=== PATIENT | female | born 1970 | race Caucasian/White ===

== ENCOUNTER 2020-03-29 22:24 | Outpatient (REF) | payer OTHER, SELFPAY ==
[2020-03-29 23:20] LABS: COVID-19 Test Negative (Negative); IDNOW Serial# 9DD0AD1C
== END 2020-03-29 22:25 | disposition home or self-care (01) ==
LOC: HO.EMPCOV 22:24
PROVIDERS: Visit Provider Internal Medicine
DX: Z20.828 Contact with and (suspected) exposure to other viral communicable diseases (principal)
CPT/HCPCS: 87635

== ENCOUNTER 2020-06-04 07:29 | Outpatient (REF) | payer OTHER, SELFPAY ==
[2020-06-04 07:45] LABS: COVID-19 Test Negative (Negative)
== END 2020-06-04 07:30 | disposition home or self-care (01) ==
LOC: HO.EMPCOV 07:29
PROVIDERS: Visit Provider Internal Medicine
DX: Z20.822 Contact with and (suspected) exposure to COVID-19 (principal)
CPT/HCPCS: 36415; 87635; C9803

== ENCOUNTER 2020-07-19 07:05 | Outpatient (REF) | payer OTHER, SELFPAY ==
[2020-07-19 08:04] LABS: Anion Gap 12 (12-20); Blood Urea Nitrogen 18 mg/dL (9-16); Calcium 9.3 mg/dL (8.4-10.2); Carbon Dioxide 33 mmol/L (22-29); Chloride 98 mmol/L (96-108); Estimated Glomerular Filt Rate > 60; Glucose Random 85 mg/dL (60-115); Sodium 139 mmol/L (135-145)
== END 2020-07-19 07:06 | disposition home or self-care (01) ==
LOC: HO.LAB 07:05
PROVIDERS: PCP Internal Medicine; Visit Provider Internal Medicine
DX: R51.9 Headache, unspecified (principal)
CPT/HCPCS: 36415; 80048

== ENCOUNTER 2020-07-22 11:10 | Outpatient (REF) | payer OTHER, SELFPAY ==
[2020-07-22 11:28] LABS: COVID-19 Test Negative (Negative); IDNOW Serial# 55D5AD1C
== END 2020-07-22 11:11 | disposition home or self-care (01) ==
LOC: HO.EMPCOV 11:10
PROVIDERS: Visit Provider Internal Medicine
DX: Z20.822 Contact with and (suspected) exposure to COVID-19 (principal)
CPT/HCPCS: 36415; 87635; C9803

== ENCOUNTER 2020-07-22 14:57 | Outpatient (REF) | payer OTHER, SELFPAY ==
--- NOTE | ~2020-07-22 | MR_ITS ---
EXAMINATION: MR BRAIN WITHOUT AND WITH CONTRAST CLINICAL INFORMATION: New onset severe headache. Assess for mass. COMPARISON: There are no prior studies available for comparison. TECHNIQUE: Multiplanar, multisequence MRI of the brain was obtained before and after the intravenous administration of 9 mL Gadavist. FINDINGS: No diffusion abnormalities are identified to suggest an acute or subacute infarct. No mass effect or midline shift is seen. The ventricles are normal in size. There are a few isolated foci of increased T2 and FLAIR signal in the white matter which are nonspecific. There is a prominent perivascular space in the left basal ganglia. No extra-axial fluid collections are seen. The brainstem and cerebellum are normal. On postcontrast imaging, there is no abnormal parenchymal or leptomeningeal enhancement. No pathologic magnetic susceptibility artifact is identified on the gradient refocused acquisition. The craniovertebral junction, marrow signal, and midline structures are normal. The major intracranial flow-voids at the level of the lumbee of [place] are preserved. The dural venous sinus flow-voids are maintained. The mastoid air cells and paranasal sinuses are well-aerated. MR/MR head/brain wo/w con IMPRESSION: 1. There are no acute bleeds or infarcts. There are no masses or areas of abnormal enhancement. The paranasal sinuses and mastoid air cells are well-aerated.
== END 2020-07-22 14:58 | disposition home or self-care (01) ==
LOC: HO.MRI 14:57
PROVIDERS: Visit Provider Internal Medicine
DX: R51.9 Headache, unspecified (principal)
CPT/HCPCS: 70553; A9585

== ENCOUNTER 2020-07-23 08:55 | Outpatient (REF) | payer OTHER, SELFPAY ==
[2020-07-26 06:42] LABS: HPV mRNA E6/E7 rflx Not Detected (Not Detected)
== END 2020-07-23 08:56 | disposition home or self-care (01) ==
LOC: HO.LAB 08:55
PROVIDERS: Visit Provider Obstetrics & Gynecology
DX: Z01.419 Encounter for gynecological examination (general) (routine) without abnormal findings (principal); Z11.51 Encounter for screening for human papillomavirus (HPV)
CPT/HCPCS: 36415; 87624; 88142

== ENCOUNTER 2020-09-24 15:38 | Outpatient (REF) | payer OTHER, SELFPAY ==
--- NOTE | ~2020-09-24 | MM_ITS ---
EXAMINATION: MM SCREENING DIGITAL BREAST TOMOSYNTHESIS, BILATERAL CLINICAL INFORMATION: Screening. Asymptomatic. The lifetime risk of breast cancer based on the Tyrer-Cuzick Model is 21%. Additional annual screening with breast MRI may be of benefit in women with a Score of 20% or greater. COMPARISON: Mammography: 02/08/2018 and studies dating back to 08/15/2014. TECHNIQUE: Digital breast tomosynthesis is performed in both the craniocaudal and mediolateral oblique views along with computer-aided detection (CAD). Synthesized 2D images are generated from the tomosynthesis. Additional right exaggerated craniocaudal view performed. FINDINGS: The breasts are heterogeneously dense, which may obscure small masses (ACR BI-RADS breast composition Category c). There is a stable appearance of the right breast with no new abnormal dominant mass or suspicious grouping of microcalcifications. Within the lateral aspect of the left breast there is question irregular marginated density with calcifications for which further evaluation with spot magnification view is recommended. The density lies approximately 8 cm from the nipple. I do not definitely see a correlating density on mediolateral oblique projection, however, by tomographic imaging on craniocaudal view, this region would correspond to a location superiorly. MM/MM tomosynthesis screening BI IMPRESSION: Left breast density for further evaluation with spot magnification views. ASSESSMENT: BI-RADS 0: Incomplete - Need Additional Imaging Evaluation RECOMMENDATION: 1. Additional views of the left breast. 2. Targeted ultrasound if warranted after review of the additional views. 3. Radiology department staff will contact the patient for additional imaging. This patient's information was entered into a reminder system with a target due date for their next mammogram.
== END 2020-09-24 15:39 | disposition home or self-care (01) ==
LOC: HO.MAMMO 15:38
PROVIDERS: PCP Internal Medicine; Visit Provider Obstetrics & Gynecology
DX: Z12.31 Encounter for screening mammogram for malignant neoplasm of breast (principal)
CPT/HCPCS: 77063; 77067

== ENCOUNTER 2020-10-01 14:52 | Outpatient (REF) | payer OTHER, SELFPAY ==
--- NOTE | ~2020-10-01 | MM_ITS ---
EXAMINATION: MM DIAGNOSTIC DIGITAL BREAST TOMOSYNTHESIS, LEFT CLINICAL INFORMATION: Recall from screening for question of asymmetric density with calcifications upper outer left breast. TC score 21%. COMPARISON: Mammography: 09/24/2020; outside mammography 12/19/2017 ([place]), 10/29/2015 ([facility]). TECHNIQUE: Digital breast tomosynthesis is performed. 2D images are generated from the tomosynthesis. The following views are obtained: 3-D rolled CC x2, magnification left CC, magnification left ML. FINDINGS: The breasts are heterogeneously dense, which may obscure small masses (ACR BI-RADS breast composition Category c). The additional rolled digital breast tomosynthesis shows no persistent asymmetric density. There is no developing density or interval mass or architectural abnormality in the area of concern. There are a few tiny regional round calcifications upper outer left breast similar to outside exam. There are no increasing or suspicious calcifications. Results are discussed with the patient at time of visit. MM/MM tomosynthesis added views L IMPRESSION: Additional views show no persistent asymmetric density or abnormal calcifications. No significant changes from prior outside exam. ASSESSMENT: BI-RADS 2: Benign RECOMMENDATION: 1. Routine annual mammography screening. 2. The lifetime risk of breast cancer based on the Tyrer-Cuzick Model is 21%. Additional annual adjunct screening with breast MRI may be of benefit in women with a risk score of 20% or greater. This patient's information was entered into a reminder system with a target due date for their next mammogram.
== END 2020-10-01 14:53 | disposition home or self-care (01) ==
LOC: HO.MAMMO 14:52
PROVIDERS: Visit Provider Obstetrics & Gynecology
DX: R92.2 Inconclusive mammogram (principal); R92.1 Mammographic calcification found on diagnostic imaging of breast
CPT/HCPCS: 77061; 77065

== ENCOUNTER 2021-03-24 10:36 | Outpatient (REF) | payer OTHER, SELFPAY ==
[2021-03-24 11:40] LABS: Blood Urea Nitrogen 15 mg/dL (9-16); Estimated Glomerular Filt Rate > 60
== END 2021-03-24 10:37 | disposition home or self-care (01) ==
LOC: HO.LAB 10:36
PROVIDERS: PCP Internal Medicine; Visit Provider Obstetrics & Gynecology
DX: Z91.89 Other specified personal risk factors, not elsewhere classified (principal)
CPT/HCPCS: 36415; 82565; 84520

== ENCOUNTER 2021-03-25 16:49 | Outpatient (REF) | payer OTHER, SELFPAY ==
--- NOTE | ~2021-03-25 | MR_ITS ---
EXAMINATION: MR BREAST WITHOUT AND WITH CONTRAST, BILATERAL CLINICAL INFORMATION: High-risk screening. COMPARISON: No previous breast MRI. TECHNIQUE: Imaging was performed with a dedicated breast coil. Prior to the administration of contrast, bilateral axial T1 and bilateral axial T2 weighted sequences were obtained. After the uneventful administration of?10 mL of Gadavist, dynamic contrast-enhanced VIBRANT series through the breasts in the axial plane were performed. Subtracted images were performed and reviewed. A delayed sagittal sequence through both breasts was acquired. Additionally, CAD post-processing, including maximum intensity projections, 3-D reconstructions and kinetic analysis, were performed an independent workstation and reviewed by the interpreting radiologist is a portion of this exam. FINDINGS: The patient's heterogeneously dense fibroglandular tissue demonstrates moderate background enhancement. LEFT BREAST: No definite suspicious masslike or non-masslike enhancement. No abnormal skin thickening or nipple retraction. No abnormal architectural distortion. Review of the T2 weighted images demonstrates mild fibrocystic changes without dilated ducts. Review of kinetic images reveals no additional findings. RIGHT BREAST: No definite suspicious masslike or non-masslike enhancement. No abnormal skin thickening or nipple retraction. No abnormal architectural distortion. Review of the T2 weighted images demonstrates mild fibrocystic changes without dilated ducts. Review of kinetic images reveals no additional findings. There is no suspicious internal mammary chain or axillary adenopathy. Limited views of the chest and abdomen are unremarkable. MR/MR breast BI wo/w con IMPRESSION: No MR specific evidence of malignancy. ASSESSMENT: LEFT BREAST: BI-RADS 1-Negative RIGHT BREAST: BI-RADS 1-Negative RECOMMENDATIONS: Clinical follow-up. Continued annual mammographic surveillance. Further breast MRI as risk factors dictate.
== END 2021-03-25 16:50 | disposition home or self-care (01) ==
LOC: HO.MRI 16:49
PROVIDERS: PCP Internal Medicine; Visit Provider Obstetrics & Gynecology
DX: Z91.89 Other specified personal risk factors, not elsewhere classified (principal)
CPT/HCPCS: 77049; A9585

== ENCOUNTER 2021-04-15 03:37 | Outpatient (REF) | payer OTHER, SELFPAY ==
[2021-04-15 04:06] LABS: COVID-19 Test Negative (Negative); IDNOW Serial# 9DD0AD1C
== END 2021-04-15 03:38 | disposition home or self-care (01) ==
LOC: HO.LAB 03:37
PROVIDERS: Visit Provider Internal Medicine
DX: Z20.822 Contact with and (suspected) exposure to COVID-19 (principal)
CPT/HCPCS: 36415; 87635

== ENCOUNTER 2021-04-28 06:46 | Outpatient (REF) | payer OTHER, SELFPAY ==
[2021-04-28 07:40] LABS: COVID-19 Test Negative (Negative)
== END 2021-04-28 06:47 | disposition home or self-care (01) ==
LOC: HO.LAB 06:46
PROVIDERS: PCP Internal Medicine; Visit Provider Internal Medicine
DX: Z20.822 Contact with and (suspected) exposure to COVID-19 (principal)
CPT/HCPCS: 36415; 87635

== ENCOUNTER 2021-07-28 09:03 | Outpatient (REF) | payer OTHER, SELFPAY ==
[2021-07-28 14:25] LABS: CT PCR NOT DETECTED (Not Detect.); NG PCR NOT DETECTED (Not Detect.)
[2021-07-29 08:42] LABS: BV Int Neg Control Negative (Negative); BV Int Pos Control Positive (Positive)
== END 2021-07-28 09:04 | disposition home or self-care (01) ==
LOC: HO.LAB 09:03
PROVIDERS: Visit Provider Advanced Practice Midwife
DX: Z01.411 Encounter for gynecological examination (general) (routine) with abnormal findings (principal); N92.0 Excessive and frequent menstruation with regular cycle; N93.9 Abnormal uterine and vaginal bleeding, unspecified
CPT/HCPCS: 87480; 87491; 87510; 87591; 87660

== ENCOUNTER 2021-08-28 10:56 | Outpatient (REF) | payer OTHER, SELFPAY ==
--- NOTE | ~2021-08-28 | US_ITS ---
EXAMINATION: US PELVIS CLINICAL INFORMATION: Excessive and frequent menstruation COMPARISON: CT abdomen pelvis 01/02/2019 TECHNIQUE: Ultrasound of the pelvis is performed using both transabdominal and transvaginal transducers along with Doppler. Transvaginal imaging is performed due to inadequate visualization transabdominally. FINDINGS: Uterus: The uterus is anteverted and measures 11.8 x 5.0 x 8.3 cm. The double wall endometrial thickness is 15 mm. There is a 1.6 x 1.2 x 1.4 cm echogenic lesion within the fundal endometrium with a feeding vessel suggestive of an endometrial polyp. A 3.0 x 3.5 x 3.3 cm transmural myoma in the right fundus with a less than 25% submucosal component. A 2.3 x 1.7 x 1.5 cm intramural myoma in the left body of the uterus The uterus is smooth in contour and has normal myometrial echogenicity. No visible fibroid. Adnexa: Both ovaries are visualized. There is normal color flow to the adnexa. There is no ovarian torsion. There is no pelvic ascites or fluid collection. Right ovary measures 4.4 x 3.2 x 4.0 cm. Right ovary is remarkable for a 2.2 cm dominant follicle and an involuting hemorrhagic corpus luteum. Left ovary measures 2.8 x 2.2 x 1.5 cm. Left ovary is unremarkable in appearance. US/US pelvic and transvaginal IMPRESSION: A 1.6 cm echogenic lesion within the fundal endometrium with a feeding vessel suggestive of an endometrial polyp. Recommend gynecologic referral. A 3.5 cm transmural myoma in the right fundus with a less than 25% submucosal component. An additional 2.3 cm intramural myoma is noted in the left body of the uterus.
[2021-08-28 13:14] LABS: Hematocrit 38.9 % (37.0-47.0); Hemoglobin 12.4 g/dl (12.0-16.0); Mean Corpuscular HGB Conc 31.9 g/dl (31.0-35.0); Mean Corpuscular Hemoglobin 27.4 pg (27.0-33.0); Mean Corpuscular Volume 86.1 fL (80.0-98.0); Mean Platelet Volume 9.4 fL (9.4-12.3); Platelet Count 374 X10*3/uL (160-400); Red Blood Count 4.52 X10*6/uL (4.20-5.50); Red Cell Distribution Width 13.6 % (11.0-16.0); White Blood Count 8.6 X10*3/uL (4.8-10.8)
[2021-08-28 14:03] LABS: Thyroid Stimulating Hormone 1.34 uIU/mL (0.32-4.0)
== END 2021-08-28 10:57 | disposition home or self-care (01) ==
LOC: HO.US 10:56
PROVIDERS: PCP Internal Medicine; Visit Provider Advanced Practice Midwife
DX: N92.0 Excessive and frequent menstruation with regular cycle (principal); N92.1 Excessive and frequent menstruation with irregular cycle
CPT/HCPCS: 36415; 76830; 76856; 84443; 85027

== ENCOUNTER → 2021-09-16 14:38 | Outpatient (BNVA) | payer OTHER, SELFPAY | PROVIDERS: PCP Internal Medicine; Visit Provider Advanced Practice Midwife | DX: Z13.89 Encounter for screening for other disorder (principal) ==

== ENCOUNTER 2021-10-02 15:01 | Outpatient (REF) | payer OTHER, SELFPAY ==
--- NOTE | ~2021-10-02 | MM_ITS ---
EXAMINATION: MM SCREENING DIGITAL BREAST TOMOSYNTHESIS, BILATERAL CLINICAL INFORMATION: Screening. Asymptomatic. The lifetime risk of breast cancer based on the Tyrer-Cuzick Model is 17%. COMPARISON: Mammography: 10/01/2020, 09/24/2020, outside mammography 12/19/2017 ([place]), 10/29/2015 ([facility]); MR bilateral breasts 03/25/2021. TECHNIQUE: Digital breast tomosynthesis is performed in both the craniocaudal and mediolateral oblique views along with computer-aided detection (CAD). Synthesized 2D images are generated from the tomosynthesis. FINDINGS: The breasts are heterogeneously dense, which may obscure small masses (ACR BI-RADS breast composition Category c). Parenchymal pattern is similar to prior studies and there is no developing density or interval mass or architectural abnormality. There are no interval abnormal calcifications. A few punctate calcifications mid upper outer left breast are stable. The axilla and skin contours are unremarkable. No significant changes. MM/MM tomosynthesis screening BI IMPRESSION: No mammographic evidence of malignancy. ASSESSMENT: BI-RADS 2: Benign RECOMMENDATION: Routine annual mammography screening. This patient's information was entered into a reminder system with a target due date for their next mammogram.
== END 2021-10-02 15:02 | disposition home or self-care (01) ==
LOC: HO.MAMMO 15:01
PROVIDERS: PCP Internal Medicine; Visit Provider Advanced Practice Midwife
DX: Z12.31 Encounter for screening mammogram for malignant neoplasm of breast (principal)
CPT/HCPCS: 77063; 77067

== ENCOUNTER 2021-11-27 06:50 | Day surgery (SDC) | payer OTHER, SELFPAY ==
[2021-11-20 14:46] VITALS: BMI 36.9
--- NOTE | 2021-11-25 12:37 | P.CONAN_ITS ---
Documented by User: Calli Deras NP 11/25/21 12:37 HPI - Anesthesia Eval Consult details Narrative: 51yo F for D&C Hysteroscopy,poss polypectomy/myomectomy PMFSH Active Problems Active Problems: All Active Problems (Updated 11/20/21 @ 14:19 by Katina Shrestha RN) Other specified personal risk factors, not elsewhere classified (Acute) Encounter for annual routine gynecological examination (Acute) Abnormal uterine bleeding (AUB) (Acute) Heavy menstrual bleeding (Acute) Endometrial polyp (Acute) Fibroid, uterine (Acute) Abnormal uterine bleeding (AUB) (Acute) Past Medical History Medical History Anxiety Cluster headaches GERD (gastroesophageal reflux disease) History of febrile seizure HTN (hypertension) IBS (irritable bowel syndrome) Migraines On beta jeremiah at home Family History Family History Maternal Aunt Breast cancer Paternal Aunt Breast cancer Surgical History Surgical History History of foot surgery History of tonsillectomy Hx of arthroscopy of right knee Hx of colonoscopy Social History Social History Are you a primary home health care worker to a significant other at home: No Do you presently have visiting nurse or other home services: No Alcohol intake: current Alcohol intake frequency: holidays/special occasions only Patient Tobacco Use Status: Never used Tobacco Use of substances other than those prescribed or required for medical reasons: No Are you DNR?: No Advance Directives: No Advance Directives Information Provided: Yes Advance Directives on File: No Recently lost weight without trying: No Eating poorly because of decreased appetite: No Nutrition Risks: No Nutritional Risk Current occupational status: employed Current occupation: Nurse's aid at [employer] Gender identity: Female Meds Allergies Allergy/AdvReac Type Severity Reaction Status Date / Time No Known Allergies Allergy Verified 11/17/21 13:12 Home Medications Medication Instructions Recorded Confirmed Last Taken Type citalopram 20 mg tablet 20 mg PO DAILY 07/23/20 11/20/21 11/27/21 History hydrochlorothiazide 25 mg tablet 25 mg PO DAILY 07/23/20 11/20/21 Unknown History metoprolol succinate 200 mg 200 mg PO DAILY 07/23/20 11/20/21 11/27/21 History tablet,extended release 24 hr omeprazole 20 mg capsule,delayed 20 mg PO DAILY 07/23/20 11/20/21 11/27/21 History release ondansetron 4 mg disintegrating 4 mg sublingual BID PRN Nausea 07/23/20 11/20/21 Unknown History tablet celecoxib 200 mg capsule 200 mg PO DAILY 07/28/21 11/20/21 Unknown History cholecalciferol (vitamin D3) 50 50 mcg PO DAILY 07/28/21 11/20/21 Unknown History mcg (2,000 unit) capsule amoxicillin 11/27/21 11/27/21 History Exam Exam Date and Time: November 25, 2021 1237 Height,Weight and Vital Signs: Height 5 ft 8 in Weight 110.223 kg Pertinent Lab Results Pertinent Lab Results: Laboratory Tests 08/28/21 12:39 WBC 8.6 Hgb 12.4 Hct 38.9 Plt Count 374 Assessment and Plan Assessment Anesthesia Assessment: Chart Reviewed Documented by User: Kp Beyer MD 11/27/21 07:46 PMFSH Past Medical History Medical History Anxiety Cluster headaches GERD (gastroesophageal reflux disease) History of febrile seizure HTN (hypertension) IBS (irritable bowel syndrome) Migraines On beta jeremiah at home Family History Family History Maternal Aunt Breast cancer Paternal Aunt Breast cancer Family history of problems with anesthesia: No Surgical History Surgical History History of foot surgery History of tonsillectomy Hx of arthroscopy of right knee Hx of colonoscopy History of Problems with Anesthesia: No Social History Social History Are you a primary home health care worker to a significant other at home: No Do you presently have visiting nurse or other home services: No Alcohol intake: current Alcohol intake frequency: holidays/special occasions only Patient Tobacco Use Status: Never used Tobacco Use of substances other than those prescribed or required for medical reasons: No Are you DNR?: No Advance Directives: No Advance Directives Information Provided: Yes Advance Directives on File: No Recently lost weight without trying: No Eating poorly because of decreased appetite: No Nutrition Risks: No Nutritional Risk Current occupational status: employed 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 Meds Allergies Allergy/AdvReac Type Severity Reaction Status Date / Time No Known Allergies Allergy Verified 11/17/21 13:12 Home Medications Medication Instructions Recorded Confirmed Last Taken Type citalopram 20 mg tablet 20 mg PO DAILY 07/23/20 11/20/21 11/27/21 History hydrochlorothiazide 25 mg tablet 25 mg PO DAILY 07/23/20 11/20/21 Unknown History metoprolol succinate 200 mg 200 mg PO DAILY 07/23/20 11/20/21 11/27/21 History tablet,extended release 24 hr omeprazole 20 mg capsule,delayed 20 mg PO DAILY 07/23/20 11/20/21 11/27/21 History release ondansetron 4 mg disintegrating 4 mg sublingual BID PRN Nausea 07/23/20 11/20/21 Unknown History tablet celecoxib 200 mg capsule 200 mg PO DAILY 07/28/21 11/20/21 Unknown History cholecalciferol (vitamin D3) 50 50 mcg PO DAILY 07/28/21 11/20/21 Unknown History mcg (2,000 unit) capsule amoxicillin 11/27/21 11/27/21 History Exam Airway Mallampati Class: II TM Dist: >3cm Neck ROM: Full Loose/Missing/Broken Teeth: No Heart: [id number] Lungs: cta b/l Assessment and Plan Assessment Anesthesia Assessment: Anesthesia Plan Discussed Final Anesthetic Review Family History of Problems with Anesthesia: No History of Problems with Anesthesia: No NPO: Yes ASA Class: II Final Preanesthetic Review: No Changes in Pt Med Stat, Meds/Allgs Chart Reviewed, Consent Obtained/Reviewed and Anes Risks/Benef Reviewed Patient Risk: Intermediate Procedure Risk: Intermediate Assessment/Block/Sedation in : Assess/Block/Sedation- Anesthetic Plan Anesthetic Plan: GA and Agree w/ Assess. and Plan Disposition: Standard PACU
[2021-11-27] VITALS (9 sets, daily range): BP systolic 137–153; BP diastolic 68–92; PULSE 80–103; RESP 16–20; TEMP 36.1–37.7; O2SAT 98–100
[2021-11-27 07:15] LABS: UPreg QC Valid YES; Urine Pregnancy NEGATIVE (NEGATIVE)
[2021-11-27] MEDS: Lactated Ringers 1,000 ML 100 ML IVCONT (07:25)
--- NOTE | 2021-11-27 07:38 | MHC.SHP ---
Pre-Procedural Eval Section A Date of Service: 11/27/21 The patient is an INPATIENT: No Changes since office visit: No Cold of Flu in the past 2 weeks, No New Medical Problems, No Changes in Medication and No Patient answered all questions The History & Physical has been completed within 30 days and I have reviewed it.: Yes Section B Chief Complaint: Polyp of corpus uteri Allergies: Allergies Allergy/AdvReac Type Severity Reaction Status Date / Time No Known Allergies Allergy Verified 11/17/21 13:12 Plan Diagnosis/Plan: Unchanged I have reviewed the history and physical and performed a pertinent physical examination on my patient. No changes have occurred unless specified.
--- NOTE | 2021-11-27 09:16 | P.BOP_ITS ---
Brief Operative Note Date of Service: 11/27/21 Pre-op diagnosis: AUB, Endometrial polyp by US Post-op diagnosis: same (R fundal 1.5 cm myoma & 0.5 cm polyp) Procedure: Hysteroscopy D&C, Polypectomy & Myomectomy Surgeon: Alexander Saldana MD Anesthesia: GLMA Was an [employer] Charcoal Burner used for this Procedure?: No Estimated blood loss (mL): 0 Pathology: other (Endometrial Scrapping. Polyp and myoma) Condition: stable Disposition: PACU
--- NOTE | 2021-11-27 09:18 | W.PM.OPN ---
Operative Note Operative Note Date of Service: 11/27/21 Narrative: Preop Diagnosis: AUB, Endometrial polyp by US Operation: Diagnostic Hysteroscopy, Dilataion & Curettage , Polypectomy& Myomectomy Post Op Diagnosis: Endometrial Polyp QBL: Minimal Anesthesia: MAC Surgeon: Alexander Saldana MD Agricultural Education Teacher: None Complication: None Pathology: Endometrial Scrapings, Endometrial polyp, myoma Procedure: The patient was put in the dorsal lithotomy position, scrubbed, and draped in the usual manner. A sterile speculum was inserted in the patient's vagina. The anterior lip of the cervix was grasped with a single tooth tenaculum. The cervix was dilated up to 5 mm, then the scope was inserted in the patient's uterus. Inspection revealedRight fundal 1.5 cm myoma and fundal 0.5 cm endometrial polyp. The Myosure Reach device was used; it was introduced through the operative channel and myomectomy and polypectomy done with no complications. At the end of the procedure, all instruments were taken out of the patient uterine and vaginal cavity. The single tooth tenaculum was removed and homeostasis was assured using pressure,. The patient tolerated the procedure well and was transferred to the PACU in a stable condition.
[2021-11-27] MEDS: Acetaminophen 325 MG TABLET 650 MG PO (09:43)
== END 2021-11-27 10:55 | disposition home or self-care (01) ==
PROVIDERS: PCP Internal Medicine; Visit Provider Obstetrics & Gynecology
PROC: 0UDB8ZZ Extraction of Endometrium, Via Natural or Artificial Opening Endoscopic (ICD-10-PCS; CPT 58558; principal; 2021-11-27 08:30)
DX: N84.0 Polyp of corpus uteri (principal); D25.9 Leiomyoma of uterus, unspecified; N93.9 Abnormal uterine and vaginal bleeding, unspecified; I10 Essential (primary) hypertension; G43.909 Migraine, unspecified, not intractable, without status migrainosus; Z79.899 Other long term (current) drug therapy
CPT/HCPCS: 58558; 81025; 88305; J1100; J2250; J2405; J3010

== ENCOUNTER → 2022-06-08 08:11 | Outpatient (BNVA) | payer OTHER, SELFPAY | PROVIDERS: PCP Internal Medicine; Visit Provider Obstetrics & Gynecology | DX: Z13.89 Encounter for screening for other disorder (principal) ==

== ENCOUNTER 2022-06-14 12:49 | Outpatient (REF) | payer OTHER, SELFPAY ==
--- NOTE | ~2022-06-14 | US_ITS ---
EXAMINATION: US PELVIS CLINICAL INFORMATION: Uterine leiomyoma. COMPARISON: Pelvic ultrasound 08/29/2019. TECHNIQUE: Ultrasound of the pelvis is performed using both transabdominal and transvaginal transducers along with Doppler. Transvaginal imaging is performed due to inadequate visualization transabdominally. FINDINGS: UTERUS: The uterus is anteverted and measures 9.2 x 5.0 x 6.4 cm for a volume of 154 mL.There are nabothian cysts seen in the cervix. The endometrium was not well seen secondary to fibroids. There is a large fundal fibroid on the right measuring 4.1 x 4.4 x 4.0 cm (previously 4.1 x 3.0 x 3.6 cm). There is a central uterine fibroid measuring 1.6 x 1.3 x 1.1 cm (previously 2.3 x 1.7 x 1.5 cm). A smaller left-sided uterine body fibroid is seen, not noted previously measuring 1.4 x 1.4 x 1.3 cm. ADNEXA: Both ovaries are visualized. There is normal color flow to the adnexa. There is no ovarian torsion. There is no pelvic ascites or fluid collection. Right ovary measures 2.8 x 1.4 x 1.7 cm for a volume of 3.5 mL. Left ovary measures 2.5 x 1.4 x 1.4 cm for a volume of 2.6 mL. US/US pelvic and transvaginal IMPRESSION: Large fundal fibroid has increased in size whereas the central uterine body fibroid appears decreased. There is a new 1.4 cm fibroid not seen previously.
== END 2022-06-14 12:50 | disposition home or self-care (01) ==
LOC: HO.US 12:49
PROVIDERS: PCP Internal Medicine; Visit Provider Obstetrics & Gynecology
DX: D25.9 Leiomyoma of uterus, unspecified (principal)
CPT/HCPCS: 76830; 76856

== ENCOUNTER 2022-07-15 08:52 | Outpatient (REF) | payer OTHER, SELFPAY ==
[2022-07-15 11:25] LABS: MANUAL DIFF FLAG NO
[2022-07-15 12:04] LABS: Basophils Absolute Auto 0.1 X10*3/uL (0.0-0.2); Basophils Percent Auto 1.1 % (0-2); Eosinophils Absolute Auto 0.2 X10*3/uL (0.0-0.4); Eosinophils Percent Auto 3.8 % (0-4); Hemoglobin 11.1 g/dl (12.0-16.0); Imm Gran Abs Auto 0.03 X10*3/uL (0.00-0.03); Imm Gran Pct Auto 0.5 % (0.0-0.4); Lymphocytes Absolute Auto 1.6 X10*3/uL (1.2-4.9); Lymphocytes Percent Auto 25.9 % (20-40); Mean Corpuscular Hemoglobin 24.2 pg (27.0-33.0); Mean Corpuscular Volume 80.6 fL (80.0-98.0); Mean Platelet Volume 9.5 fL (9.4-12.3); Monocytes Absolute Auto 0.7 X10*3/uL (0.1-1.2); Monocytes Percent Auto 11.1 % (2-11); Neutrophils Absolute Auto 3.5 x10*3/uL (2.0-8.3); Neutrophils Percent Auto 57.6 % (45-73); Platelet Count 473 X10*3/uL (160-400); Red Blood Count 4.59 X10*6/uL (4.20-5.50); Red Cell Distribution Width 15.9 % (11.0-16.0); White Blood Count 6.1 X10*3/uL (4.8-10.8)
[2022-07-15 12:19] LABS: Alanine Aminotransferase 24 U/L (0-31); Albumin Level 4.1 g/dL (3.5-5.0); Alkaline Phosphatase 73 U/L (39-117); Anion Gap 13 (12-20); Aspartate Amino Transferase 18 U/L (5-31); Bilirubin Total 0.6 mg/dL (0.0-1.0); Blood Urea Nitrogen 16 mg/dL (9-16); Calcium 9.4 mg/dL (8.4-10.2); Carbon Dioxide 32 mmol/L (22-29); Chloride 100 mmol/L (96-108); Cholesterol 219 mg/dL; Estimated Glomerular Filt Rate > 60; Glucose Random 87 mg/dL (60-115); HDL Cholesterol 66 mg/dL; LDL Cholesterol Calculated 127 mg/dl; Sodium 141 mmol/L (135-145); Total Protein 6.6 g/dL (6.5-8.0); Triglycerides 133 mg/dL
[2022-07-15 12:36] LABS: TSH reflex Free T4 1.09 uIU/mL (0.32-4.0)
== END 2022-07-15 08:53 | disposition home or self-care (01) ==
LOC: HO.HMGCLDS 08:52
PROVIDERS: PCP Internal Medicine; Visit Provider Internal Medicine
DX: I10 Essential (primary) hypertension (principal); R53.83 Other fatigue
CPT/HCPCS: 36415; 80053; 80061; 84443; 85025

== ENCOUNTER 2022-07-22 07:01 | Day surgery (SDC) | payer OTHER, SELFPAY ==
[2022-07-16 12:15] VITALS: BMI 34.8
--- NOTE | 2022-07-21 12:16 | P.CONAN_ITS ---
Documented by User: Calli Deras NP 07/21/22 12:19 HPI - Anesthesia Eval Consult details Narrative: 52yo F for Left Donovan Bunionectomy, Left 2nd toe Hammertoe Repair,tenotomy capsulotomy 2nd toe PCP cleared PMF[facility] Active Problems Active Problems: All Active Problems (Updated 02/11/22 @ 13:16 by Alexander Saldana MD) Other specified personal risk factors, not elsewhere classified (Acute) Encounter for annual routine gynecological examination (Acute) Abnormal uterine bleeding (AUB) (Acute) Heavy menstrual bleeding (Acute) Endometrial polyp (Acute) Fibroid, uterine (Acute) Abnormal uterine bleeding (AUB) (Acute) Past Medical History Medical History Anxiety Cluster headaches GERD (gastroesophageal reflux disease) History of febrile seizure HTN (hypertension) IBS (irritable bowel syndrome) Migraines On beta jeremiah at home Family History Family History Maternal Aunt Breast cancer Paternal Aunt Breast cancer Family history of problems with anesthesia: No Surgical History Surgical History History of foot surgery History of tonsillectomy Hx of arthroscopy of right knee Hx of colonoscopy Hx of dilation and curettage History of Problems with Anesthesia: No Social History Social History Are you a primary chiropractic care to a significant other at home: No Do you presently have visiting nurse or other home services: No Alcohol intake: current Alcohol intake frequency: does not drink Patient Tobacco Use Status: Never used Tobacco Are you DNR?: No Advance Directives: No Advance Directives Information Provided: Yes Recently lost weight without trying: No Nutrition Risks: No Nutritional Risk Current occupational status: employed Current occupation: Nurse's aid at [employer] Gender identity: Female Meds Allergies Allergy/AdvReac Type Severity Reaction Status Date / Time metronidazole [From Flagyl] Allergy Unknown Verified 07/21/22 10:54 Home Medications Medication Instructions Recorded Confirmed Last Taken Type citalopram 20 mg tablet 20 mg PO DAILY 07/23/20 07/16/22 07/21/22 History hydrochlorothiazide 25 mg tablet 25 mg PO DAILY 07/23/20 07/16/22 07/21/22 History metoprolol succinate 200 mg 200 mg PO DAILY 07/23/20 07/16/22 07/22/22 History tablet,extended release 24 hr omeprazole 20 mg capsule,delayed 20 mg PO DAILY 07/23/20 07/16/22 07/21/22 History release cholecalciferol (vitamin D3) 50 50 mcg PO DAILY 07/28/21 07/16/22 07/21/22 History mcg (2,000 unit) capsule Exam Exam Date and Time: July 21, 2022 1216 Height,Weight and Vital Signs: Height 5 ft 8 in Weight 104.014 kg Pertinent Lab Results Pertinent Lab Results: Laboratory Tests 07/15/22 07/15/22 09:11 09:11 WBC 6.1 Hgb 11.1 L Hct 37.0 Plt Count 473 H D Sodium 141 Potassium 4.0 Chloride 100 Carbon Dioxide 32 H BUN 16 Creatinine 0.73 Assessment and Plan Assessment Anesthesia Assessment: Chart Reviewed Final Anesthetic Review Family History of Problems with Anesthesia: No History of Problems with Anesthesia: No Documented by User: Dilcia Salazar MD 07/22/22 09:18 [facility] Past Medical History Medical History Anxiety Cluster headaches GERD (gastroesophageal reflux disease) History of febrile seizure HTN (hypertension) IBS (irritable bowel syndrome) Migraines On beta jeremiah at home Family History Family History Maternal Aunt Breast cancer Paternal Aunt Breast cancer Surgical History Surgical History History of foot surgery History of tonsillectomy Hx of arthroscopy of right knee Hx of colonoscopy Hx of dilation and curettage Social History Social History Are you a primary chiropractic care to a significant other at home: No Do you presently have visiting nurse or other home services: No Alcohol intake: current Alcohol intake frequency: does not drink Patient Tobacco Use Status: Never used Tobacco Are you DNR?: No Advance Directives: No Advance Directives Information Provided: Yes Recently lost weight without trying: No Nutrition Risks: No Nutritional Risk Current occupational status: employed 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 Gender identity: Female Meds Allergies Allergy/AdvReac Type Severity Reaction Status Date / Time metronidazole [From Flagyl] Allergy Unknown Verified 07/21/22 10:54 Home Medications Medication Instructions Recorded Confirmed Last Taken Type citalopram 20 mg tablet 20 mg PO DAILY 07/23/20 07/16/22 07/21/22 History hydrochlorothiazide 25 mg tablet 25 mg PO DAILY 07/23/20 07/16/22 07/21/22 History metoprolol succinate 200 mg 200 mg PO DAILY 07/23/20 07/16/22 07/22/22 History tablet,extended release 24 hr omeprazole 20 mg capsule,delayed 20 mg PO DAILY 07/23/20 07/16/22 07/21/22 History release cholecalciferol (vitamin D3) 50 50 mcg PO DAILY 07/28/21 07/16/22 07/21/22 History mcg (2,000 unit) capsule Exam Height,Weight and Vital Signs: Height 5 ft 8 in Weight 104.014 kg Vital Signs Temp Pulse Resp BP Pulse Ox O2 Del Method 07/22/22 07:26 146/78 H 07/22/22 07:18 97 F 88 20 172/87 H 97 Room Air Airway Mallampati Class: II TM Dist: >3cm Neck ROM: Full Loose/Missing/Broken Teeth: Yes (Missing a tooth top left back. Denies broken or loose teeth) Heart: RRR Lungs: CTAB Assessment and Plan Assessment Anesthesia Assessment: Anesthesia Plan Discussed Final Anesthetic Review NPO: Yes ASA Class: II Final Preanesthetic Review: No Changes in Pt Med Stat, Meds/Allgs Chart Reviewed, Consent Obtained/Reviewed and Anes Risks/Benef Reviewed Patient Risk: Low Procedure Risk: Low Assessment/Block/Sedation in SS: Assess/Block/Sedation-SS Anesthetic Plan Anesthetic Plan: GA and MAC: Disposition: Standard PACU
--- NOTE | 2022-07-21 14:13 | HP_ITS ---
DATE OF SERVICE: 07/22/2022 PREOPERATIVE DIAGNOSES: 1. Hallux abductovalgus deformity, left foot. 2. Hammertoe deformity, left foot. 3. 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 PLANNED PROCEDURES: 1. Donovan bunionectomy, left foot. 2. Hammertoe correction, left foot. 3. Tenotomy-capsulotomy, left foot 2nd metatarsophalangeal joint. CURRENT MEDICATIONS: Citalopram, hydrochlorothiazide, omeprazole, metoprolol, vitamin D. PAST MEDICAL HISTORY: Anxiety, high blood pressure, chickenpox, headaches migraines, joint implants. SURGICAL HISTORY: Bunionectomy, left foot in 1987; torn meniscus in 2013; bunionectomy, right foot in 2017; tonsillectomy in 1974; and meniscus repair of right knee in 2015. FAMILY HISTORY: Hypertension, heart disease. SOCIAL HISTORY: The patient is a nonsmoker. Denies any illicit drug use or alcohol use. She is and currently works at [employer]. ALLERGIES: TO FLAGYL. HOSPITALIZATIONS: Denies. REVIEW OF SYSTEMS: Within normal limits. HISTORY OF PRESENT ILLNESS: This is a 52-year-old female, who presents with aching tenderness and crossover of her 2nd toe, and bunion of the left foot has been present for several years, getting gradually progressively worse, but the patient does state she had previous bunion surgery many years ago and her foot has been getting progressively more painful. The patient has tried rest, change in shoes without any significant relief of symptoms. PHYSICAL EXAMINATION: GENERAL: Reveals a pleasant, well-nourished, well-developed, well-hydrated individual, who demonstrates proper attention to body habitus, in no acute distress, and she is oriented x3. NEUROLOGICAL EXAM: Reveals intact sensorium. Pain sensation is normal. Vibratory sensation is intact. Pinprick sensation is normal. Denies any anesthesias, burning, paresthesias, or tingling bilaterally. VASCULAR EXAM: DP and PT pulses are 3/4 bilaterally. Capillary refill is immediate to all digits. Skin temperature, elasticity, and turgor are normal, and there is no edema. DERMATOLOGICAL EXAM: Reveals normal pressure, normal texture, elasticity, and turgor. There are no masses. The interspaces are clear. ORTHOPEDIC EXAM: Muscle strength is 5/5 in a symmetrical fashion bilaterally. There is a medially prominent 1st metatarsophalangeal joint with lateral tracking of the 1st MPJ is incompletely reducible on the left foot and there is digital contraction 2 through 5 bilaterally, reducible with weightbearing. There is also contracture, dorsal dislocation, subluxation of the 2nd toe with 2nd toe overlapping great toe with medial deviation. X-RAY EXAM: Reveals normal bone and soft tissue density consistent with the patient's age and sex. Digital shows asymmetrical joint space narrowing of the PIP joint consistent with hammertoe deformity and dorsal dislocation of the 2nd digit on the MTPJ. The 1st metatarsophalangeal joint shows increased 1st intermetatarsal angle and hallux abductus angle consistent with the patient's bunion deformity, hypertrophy of dorsomedial 1st metatarsal head without subchondral cyst signs, signs of previous metatarsal head resection, likely with tibial sesamoid position about #6. PLAN: The patient is scheduled for surgery. Discussed several types of bunion surgery in detail with the patient including risks, benefits, and possible complications. I discussed Crump versus Donovan bunionectomies and base wedge osteotomies versus Lapidus procedures as well as 1st metatarsophalangeal joint fusions. Discussed the risks of having surgery versus not having surgery, the potential complications, and the usual postoperative course. Also discussed hammertoe correction and release of the 2nd metatarsophalangeal joint of the left foot with passable K-wire pinning. Discussed potential surgical complications including, but not limited to, pain, swelling, bleeding, scarring, numbness, infection, delayed or nonhealing, floppy, unstable or shortened toe recurrence, failure of the procedure, over-correction, the need of downward or plantar affects or upward position of toe, recurrence, need for further surgery, as well as possibility of loss of toe, foot, life, or limb. We discussed the use of local and IV anesthesia, and the usual postoperative course. No guarantees were given. The patient verbally indicated a full understanding of the above-mentioned conversation. We decided on performing an Donovan bunionectomy. The patient defers a base procedure or a 1st MPJ fusion. She also agrees to a hammertoe correction with relocation of 2nd metatarsophalangeal joint and K-wire pinning. The patient will obtain preoperative labs as well as medical clearance for surgery and anesthesia, and she is made aware to stop any and all blood thinners at least 1 week prior to surgery. The patient is aware that driving may not be allowed during a portion of postoperative period and not to utilize any smoking tobacco products. A prescription for 800 mg of ibuprofen was dispensed as well as a prescription for Percocet to take as needed for breakthrough pain. The patient will be partial weightbearing to the left foot in a surgical shoe with crutches as needed, and the patient will follow up in my office for all postoperative followup care. Fifi Anaya DPM LP/CARLINE / [id number]
[2022-07-22] VITALS (8 sets, daily range): BP systolic 124–172; BP diastolic 62–87; PULSE 86–103; RESP 10–20; TEMP 36.1–36.2; O2SAT 96–100
[2022-07-22] MEDS: Lactated Ringers 1,000 ML 100 ML IVCONT (07:38)
--- NOTE | 2022-07-22 08:34 | MHC.SHP ---
Pre-Procedural Eval Section A Date of Service: 07/22/22 The patient is an INPATIENT: No Changes since office visit: No Cold of Flu in the past 2 weeks, No New Medical Problems, No Changes in Medication and No Patient answered all questions The History & Physical has been completed within 30 days and I have reviewed it.: Yes Section B Chief Complaint: Contracture, left foot,hammer toe,hallux valgus Allergies: Allergies Allergy/AdvReac Type Severity Reaction Status Date / Time metronidazole [From Flagyl] Allergy Unknown Verified 07/21/22 10:54 Plan I have reviewed the history and physical and performed a pertinent physical examination on my patient. No changes have occurred unless specified. Time Spent With Patient Time: Total time managing care of this patient today ____ minutes.
--- NOTE | 2022-07-22 09:53 | PM.OP ---
Brief Operative Note Date of Service: 07/22/22 Pre-op diagnosis: Hallux Valgus, hammertoe 2nd, contracture 2nd MPJ Left foot Post-op diagnosis: same Procedure: Left Donovan Bunionectomy, hammertoe repair 2nd, tenotomy/capsulotomy 2nd MPJ Left Implants: 0.054 K-wire and 2 Kremmling Asnis screws 16mm Surgeon: Fifi Anaya Anesthesia: GLMA and local Was an Simplex Printer Installer used for this Procedure?: Yes Simplex Printer Installer: Jorge Dash Estimated blood loss (mL): 1 Tourniquet time (min): 38 Pathology: other Condition: stable Disposition: PACU
[2022-07-22] MEDS: Acetaminophen 325 MG TABLET 650 MG PO (10:33)
[2022-07-22] MEDS: oxyCODONE HCl Immed Release 5 MG TABLET PO (10:33)
--- NOTE | 2022-07-22 14:05 | OP_ITS ---
SURGEON: Fifi Anaya DPM ASSISTANTS: Jorge Dash DPM PREOPERATIVE DIAGNOSES: 1. Hallux abductovalgus deformity, left foot. 2. Hammertoe deformity, left 2nd digit. 3. 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 POSTOPERATIVE DIAGNOSES: 1. Hallux abductovalgus deformity, left foot. 2. Hammertoe deformity, left 2nd digit. 3. 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 PROCEDURE PERFORMED: 1. Donovan bunionectomy, left foot. 2. Hammertoe repair, 2nd digit, left foot. 3. Tenotomy capsulotomy, 2nd metatarsophalangeal joint, left foot. ESTIMATED BLOOD LOSS: Less than 1 cc. COMPLICATIONS: None. ANESTHESIA: An LMA with local consisting preoperatively of 18 cc of 0.5% ropivacaine and 2% lidocaine plain and postoperatively an injection of 5 cc of 0.5% ropivacaine and 1 cc of dexamethasone. HEMOSTASIS: Pneumatic ankle tourniquet set at 235 mmHg for 38 minutes. SPECIMEN: Bone, 1st metatarsal and 2nd digit, left foot. IMPLANTS: A 0.054 K-wire and two 16 mm Marble Asnis screws. INDICATIONS FOR SURGERY: Patient had painful bunion noted to the left foot that was causing pain. The patient also had contracture of the 2nd metatarsophalangeal joint and hammering of the 2nd digit as well as drifting of the 2nd digit. Patient did have previous bunionectomy according to the patient in the early 90s, but has had recurrence. The above-mentioned surgery was discussed in detail with the patient including risks, benefits, and possible complications. No guarantees were given, and written and oral informed consent was obtained. DESCRIPTION OF PROCEDURE: The patient was brought into the operating room, placed on the table in the supine position. Following IV sedation, the above-mentioned local anesthetic was injected about the left foot in a regional field block fashion. The left foot was then scrubbed, prepped, and draped in a sterile manner. The patient was given 2 g of cefazolin as a prophylactic preoperative antibiotic, and the foot was exsanguinated and the pneumatic ankle tourniquet was inflated. Attention was directed first to 1st metatarsophalangeal joint where an incision was made. The incision was deepened down through subcutaneous tissue with great care being taken to retract vital, neural, and vascular structures, and all bleeders were cauterized as necessary. A medial capsulotomy was made medial and parallel to the extensor tendons and the soft tissues were freed about the head of the 1st metatarsal. Using a sagittal saw, the medial eminence of the 1st metatarsal head was resected and passed the operative site. Attention was then directed to the 1st interspace via the same incision and a lateral release was performed. The deep transverse intermetatarsal ligament, the fibular sesamoidal ligament, and the head of the adductor tendon was transected overlying the 1st metatarsal to drift into a more corrected position. A McGlamry elevator was then used to free up any adhesions around the 1st metatarsophalangeal joint. Attention was then directed back to the medial aspect of the 1st metatarsal head. A guidewire was used to form the apex of the osteotomy and then a V type osteotomy was created with the apex pointing distally and the wings pointing plantarly proximally and dorsally proximally. Upon completion of the osteotomy, the capital fragment was translocated laterally and impacted upon the 1st metatarsal head. Two guidewires from the Karla Asnis screw set were then inserted for the 3-0 screw and two 16 mm 3-0 Karla Asnis screws were then inserted under standard technique. All guidewires were removed. There was noted to be excellent compression of the osteotomy site as well as reduction of the bunion deformity. The remaining medial eminence was then resected and passed the operative site. The wound was irrigated with normal sterile saline. The capsular structures were reapproximated with 3-0 Vicryl in a continuous running fashion, and the skin was reapproximated with 4-0 Monocryl in a continuous running fashion. Attention was then directed to the 2nd digit where an incision was made overlying the PIP joint extending proximally to the 2nd MTPJ. The incision was deepened down to subcutaneous tissue with great care being taken to retract vital, neural, and vascular structures, and all bleeders were cauterized as necessary. Attention was first directed to the PIP joint where a tenotomy was made and the soft tissues were freed about the head of the proximal phalanx. Using a sagittal saw, the head of the proximal phalanx was resected and passed from the operative site. Attention was then directed via the same incision to the 2nd metatarsophalangeal joint where a tenotomy/capsulotomy was performed at the 2nd MTPJ, allowing the 2nd digit to drift into a more rectus position. A McGlamry elevator was introduced to free up any adhesions about the 2nd metatarsophalangeal joint. Next, a 0.054 K-wire was then inserted through the distal aspect of the toe into the 2nd metatarsal to serve as temporary fixation as the toe heals. The wounds were irrigated with normal sterile saline. The tendons were reapproximated with 3-0 Vicryl in an interrupted suture technique. The skin was reapproximated with 4-0 nylon in a continuous running fashion. The 0.054 K-wire was then bent, cut, and capped. There was noted to be excellent correction of the bunion deformity as well as correction of the hammertoe and dislocation of the 2nd metatarsophalangeal joint. A postoperative injection of 5 cc of 0.5% Rupivicaine plain and 1 cc of dexamethasone was administered to the left foot. The incisions were then dressed. The 1st MPJ was dressed with a zip line from Marble closure. The 2nd toe was dressed with Xeroform, Betadine-soaked gauze was applied, 4x4s, fluffs, Kerlix, cast padding, and an Alli bandage. Pneumatic ankle tourniquet was deflated and prompt capillary refill was noted to all 5 digits. The patient tolerated procedure and anesthesia well. She was transferred to the recovery room with vital signs stable and vascular status at preoperative levels. Following a period of postoperative recovery, the patient will be discharged home with written and oral postoperative instructions. The patient will be partial weightbearing to the left foot with surgical shoe and crutches as needed, and the patient will follow up in my office for all postoperative followup care. Fifi Anaya DPM LP/CARLINE / [id number] CHAVA
== END 2022-07-22 11:27 | disposition home or self-care (01) ==
PROVIDERS: PCP Internal Medicine; Visit Provider Podiatrist
PROC: (CPT 28292; principal; 2022-07-22 08:30)
PROC: (CPT 28285; 2022-07-22 08:30)
DX: M20.12 Hallux valgus (acquired), left foot (principal); M24.575 Contracture, left foot; M20.42 Other hammer toe(s) (acquired), left foot; I10 Essential (primary) hypertension; I47.1 Supraventricular tachycardia; G43.909 Migraine, unspecified, not intractable, without status migrainosus; Z79.899 Other long term (current) drug therapy
CPT/HCPCS: 28299; 28285; 28270; 88304; 88311; C1713; J0690; J1100; J2250; J2405; J2795; J3010

== ENCOUNTER 2022-09-14 15:36 | Outpatient (REF) | payer OTHER, SELFPAY ==
[2022-09-15 06:44] LABS: CT PCR NOT DETECTED (Not Detect.); NG PCR NOT DETECTED (Not Detect.)
== END 2022-09-14 15:37 | disposition home or self-care (01) ==
LOC: HO.LNP 15:36
PROVIDERS: PCP Internal Medicine; Visit Provider Obstetrics & Gynecology
DX: Z20.2 Contact with and (suspected) exposure to infections with a predominantly sexual mode of transmission (principal)
CPT/HCPCS: 0353U

== ENCOUNTER 2022-10-06 15:00 | Outpatient (REF) | payer OTHER, SELFPAY | END 2022-10-06 15:01 | disposition home or self-care (01) | LOC: HO.LNP 15:00 | PROVIDERS: PCP Internal Medicine; Visit Provider Obstetrics & Gynecology | DX: N93.9 Abnormal uterine and vaginal bleeding, unspecified (principal) | CPT/HCPCS: 58100; 88305 ==

== ENCOUNTER 2022-10-14 15:37 | Outpatient (REF) | payer OTHER, SELFPAY ==
--- NOTE | ~2022-10-14 | MM_ITS ---
EXAMINATION: MM SCREENING DIGITAL BREAST TOMOSYNTHESIS, BILATERAL CLINICAL INFORMATION: Screening. Asymptomatic. The lifetime risk of breast cancer based on the Tyrer-Cuzick Model is 17%. COMPARISON: Mammography: 10/02/2021, 10/01/2020, 09/24/2020; outside mammography 12/19/2017 ([place]), 10/29/2015 ([facility]). TECHNIQUE: Digital breast tomosynthesis is performed in both the craniocaudal and mediolateral oblique views along with computer-aided detection (CAD). Synthesized 2D images are generated from the tomosynthesis. FINDINGS: The breasts are heterogeneously dense, which may obscure small masses (ACR BI-RADS breast composition Category c). There are no significant masses, abnormal calcifications, or other abnormalities. Parenchymal pattern is similar to prior studies. There is no developing density or architectural abnormality. The axilla and skin contours are unremarkable. No significant changes. MM/MM tomosynthesis screening BI IMPRESSION: No mammographic evidence of malignancy. ASSESSMENT: BI-RADS 1: Negative RECOMMENDATION: Routine annual mammography screening. This patient's information was entered into a reminder system with a target due date for their next mammogram.
== END 2022-10-14 15:38 | disposition home or self-care (01) ==
LOC: HO.MAMMO 15:37
PROVIDERS: PCP Internal Medicine; Visit Provider Advanced Practice Midwife
DX: Z12.31 Encounter for screening mammogram for malignant neoplasm of breast (principal)
CPT/HCPCS: 77063; 77067

== ENCOUNTER → 2022-10-18 11:26 | Outpatient (BNVA) | payer OTHER, SELFPAY | PROVIDERS: PCP Internal Medicine; Visit Provider Obstetrics & Gynecology ==

== ENCOUNTER 2022-12-09 07:47 | Outpatient (REF) | payer OTHER, SELFPAY ==
--- NOTE | ~2022-12-09 | XR_ITS ---
EXAMINATION: XR KNEE LEFT XR KNEE RIGHT CLINICAL INFORMATION: Pain in left knee and right knee. COMPARISON: None TECHNIQUE: Right knee, 3 views Left knee, 3 views FINDINGS: Left knee: Bones have normal alignment. Tricompartmental osteophyte formation of the degenerated knee. No joint effusion or focal soft tissue swelling. Moderate narrowing of medial tibiofemoral joint space with subchondral sclerosis of the tibia. No suspicious bone lesion. Right knee: Bones have normal alignment. Small joint effusion is present. Tricompartmental osteophyte formation. There is likely an old fractured osteophyte or intra-articular ossific body projecting superior to the patella. There is wqynmlww-[id number] narrowing of medial tibiofemoral joint space with subarticular sclerosis and genu varus deformity. XR/XR knee RT 3V IMPRESSION: * Tricompartmental osteoarthritis of the left knee, and the joint degeneration is worst (moderate) at the medial tibiofemoral compartment. * Tricompartmental osteoarthritis and small joint effusion of the right knee. The osteoarthritis is worst (dakpgxmc-[id number]) at the medial tibiofemoral compartment.
--- NOTE | ~2022-12-09 | XR_ITS ---
EXAMINATION: XR KNEE LEFT XR KNEE RIGHT CLINICAL INFORMATION: Pain in left knee and right knee. COMPARISON: None TECHNIQUE: Right knee, 3 views Left knee, 3 views FINDINGS: Left knee: Bones have normal alignment. Tricompartmental osteophyte formation of the degenerated knee. No joint effusion or focal soft tissue swelling. Moderate narrowing of medial tibiofemoral joint space with subchondral sclerosis of the tibia. No suspicious bone lesion. Right knee: Bones have normal alignment. Small joint effusion is present. Tricompartmental osteophyte formation. There is likely an old fractured osteophyte or intra-articular ossific body projecting superior to the patella. There is hmhsjdha-mp-xgqkze narrowing of medial tibiofemoral joint space with subarticular sclerosis and genu varus deformity. XR/XR knee LT 3V IMPRESSION: * Tricompartmental osteoarthritis of the left knee, and the joint degeneration is worst (moderate) at the medial tibiofemoral compartment. * Tricompartmental osteoarthritis and small joint effusion of the right knee. The osteoarthritis is worst (cbmygycu-rt-ppitku) at the medial tibiofemoral compartment.
== END 2022-12-09 07:48 | disposition home or self-care (01) ==
LOC: HO.HOSX 07:47
PROVIDERS: Visit Provider Orthopaedic Surgery
DX: M17.0 Bilateral primary osteoarthritis of knee (principal)
CPT/HCPCS: 20610; 73562; J7323

== ENCOUNTER 2022-12-09 08:49 | Outpatient (AMB) | payer OTHER, SELFPAY ==
[2022-12-09 08:58] VITALS: BMI 37.1
--- NOTE | 2022-12-09 08:58 | A.OFFVIS_ITS ---
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 The patient describes her pains as sharp and severe in nature. She did undergo right knee arthroscopic surgery by Dr. Israel Man approximately 10 years ago. She got temporary relief from that procedure. She has had multiple cortisone injections. The most recent set of injections gave her minimal relief. She has not had a viscosupplementation injection. She has tried Tylenol and anti-inflammatory medicines which gave her minimal relief. She has also done physical therapy which aggravated her pain. She wishes to hold off on further surgery for as long as Allergies metronidazole [From Flagyl] Allergy (Verified 12/09/22 09:10) Unknown Medication List - Last Reconciled 12/09/22 by Andres Culp MD cholecalciferol (vitamin D3) 50 mcg PO DAILY citalopram 20 mg PO DAILY hydrochlorothiazide 25 mg PO DAILY medroxyprogesterone (Provera) 10 mg PO DAILY 90 days metoprolol succinate ER 200 mg PO DAILY omeprazole 20 mg PO DAILY REPLACED BY [facility] Medical History Anxiety Cluster headaches GERD (gastroesophageal reflux disease) History of febrile seizure HTN (hypertension) IBS (irritable bowel syndrome) Migraines On beta jeremiah at home Surgical History History of foot surgery History of tonsillectomy Hx of arthroscopy of right knee Hx of colonoscopy Hx of dilation and curettage Family History Maternal Aunt Breast cancer Paternal Aunt Breast cancer Social History (Updated 12/09/22 @ 09:11 by ANTWAN Murillo) Are you a primary critical care clinical nurse specialist to a significant other at home: No Do you presently have visiting nurse or other home services: No Alcohol intake: current Alcohol intake frequency: does not drink Patient Tobacco Use Status: Never used Tobacco Current occupational status: employed 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 Gender identity: Female Physical Exam Vital Signs: BMI result Body Mass Index 37.1 Const Other: Well-nourished well-developed very friendly female awake alert and oriented x3 in no acute distress Extrem Other: Bilateral lower extremity examination shows good capillary refill, no skin lesions noted, normal sensation light touch Bilateral knee examination shows minimal effusions, palpable crepitus with range of motion, pain with range of motion, range of motion from -3 degrees to 115 degrees, no instability Office Procedures Joint Injection/Drain Joint Injection/Drain Primary Site: left knee Prep: site was prepped using aseptic technique Injected: 20 mg of (Euflexxa) and 1% plain lidocaine Procedure: The patient tolerated the procedure well Coding 71002 - Large joint Procedure code (CPT) selection complete Joint Injection/Drain Joint Injection/Drain Primary Site: right knee Prep: site was prepped using aseptic technique Injected: 20 mg of (Euflexxa) and 1% plain lidocaine Procedure: The patient tolerated the procedure well Coding 62502 - Large joint Procedure code (CPT) selection complete Results Reviewed Results Reviewed: X-rays of the patient's right knee taken today show moderate to severe joint space narrowing most significant in the medial compartment and patellofemoral joint, subchondral sclerosis, no acute bony abnormalities X-rays of the patient's left knee taken today show moderate joint space narrowing most significant in the medial compartment, subchondral sclerosis, no acute bony abnormalities Assessment & Plan Assessment & Plan (1) Arthritis of right knee: Code(s): M17.11 - Unilateral primary osteoarthritis, right knee (2) Arthritis of left knee: Code(s): M17.12 - Unilateral primary osteoarthritis, left knee Plan Ms. Jeff presents with bilateral knee pains due to degenerative joint disease. I had a lengthy discussion with the patient regarding the treatment options. She wishes to hold off on surgery for as long as possible. I agree with this plan. She has not gotten good relief from cortisone injections in the past. Thus, the risks and benefits of a series of Euflexxa viscosupplementation injections for both of her knees was discussed at length with the patient. The patient wished to proceed. She tolerated the bilateral knee Euflexxa injections well. She will continue with her activity modifications. She will contact me prior to her follow-up appointment next week should any questions or concerns arise. Feel free to call me at any time should questions regarding her orthopedic management arise. Thank you very much for asking me to see this very friendly patient. I spent 24 minutes in reviewing the patient's records and imaging studies, seeing the patient and documenting in the medical record. Orders: Orders XR knee LT 3V Today M25.562 - Pain in left knee XR knee RT 3V Today M25.561 - Pain in right knee AMB Joint Injection/Aspiration Today M17.12 - Unilateral primary osteoarthritis, left knee AMB Joint Injection/Aspiration Today M17.11 - Unilateral primary osteoarthritis, right knee Coding Level of Care Code New Pt Level 2 (57355) Diagnoses Arthritis of right knee M17.11 Arthritis of left knee M17.12 CPT Codes Coding - 23227 Large joint: 74290 - Large joint ([id number]) Coding - 67087 Large joint: 76047 - Large joint ([id number])
== END 2022-12-09 09:45 | disposition home or self-care (01) ==
PROVIDERS: PCP Internal Medicine; Visit Provider Orthopaedic Surgery
DX: M17.0 Bilateral primary osteoarthritis of knee (principal)
CPT/HCPCS: 20610; 99202

== ENCOUNTER 2022-12-16 08:25 | Outpatient (AMB) | payer OTHER, SELFPAY ==
[2022-12-16 08:35] VITALS: BMI 37.1
--- NOTE | 2022-12-16 08:35 | MHC.OFFVIS ---
Intake Vital Signs 12/16/22 08:35 Height 5 ft 8 in Weight 244 lb BMI 37.1 Intake Visit Reasons: OV - Euflexxa #2, Bilateral Intake Note: Radha 52 yr old female presents today for her Euflexxa gel injection for bilateral knees. #2. Allergies metronidazole [From Flagyl] Allergy (Verified 12/16/22 08:39) Unknown Medication List - Last Reconciled 12/16/22 by Andres Culp MD cholecalciferol (vitamin D3) 50 mcg PO DAILY citalopram 20 mg PO DAILY hydrochlorothiazide 25 mg PO DAILY medroxyprogesterone (Provera) 10 mg PO DAILY 90 days metoprolol succinate ER 200 mg PO DAILY omeprazole 20 mg PO DAILY [facility] Medical History Anxiety Cluster headaches GERD (gastroesophageal reflux disease) History of febrile seizure HTN (hypertension) IBS (irritable bowel syndrome) Migraines On beta jeremiah at home Surgical History History of foot surgery History of tonsillectomy Hx of arthroscopy of right knee Hx of colonoscopy Hx of dilation and curettage Family History Maternal Aunt Breast cancer Paternal Aunt Breast cancer Social History Are you a primary healthcare administrative assistant to a significant other at home: No Do you presently have visiting nurse or other home services: No Alcohol intake: current Alcohol intake frequency: does not drink Patient Tobacco Use Status: Never used Tobacco Current occupational status: employed 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 Physical Exam Vital Signs: BMI result Body Mass Index 37.1 Office Procedures Joint Injection/Drain Joint Injection/Drain Primary Site: left knee Prep: site was prepped using aseptic technique Injected: 20 mg of (Euflexxa) and 1% plain lidocaine Procedure: The patient tolerated the procedure well Coding 90552 - Large joint Procedure code (CPT) selection complete Joint Injection/Drain Joint Injection/Drain Primary Site: right knee Prep: site was prepped using aseptic technique Injected: 20 mg of (Euflexxa) and 1% plain lidocaine Procedure: The patient tolerated the procedure well Coding 60421 - Large joint Procedure code (CPT) selection complete Results Reviewed Results Reviewed: 12/16/22 08:06 Hyaluronate Sodium [Euflexxa] 20 mg INTRAARTIC .STK-MED ONE Lidocaine HCl 2 % MPF [Xylocaine 2 % MPF] 5 ml .ROUTE .STK-MED ONE Assessment & Plan Assessment & Plan (1) Arthritis of left knee: Code(s): M17.12 - Unilateral primary osteoarthritis, left knee Plan: Ms. Jeff he presents with bilateral knee pains due to degenerative joint disease. The risks and benefits of her 2nd set of Euflexxa injections were discussed at length with the patient. The patient wished to proceed. The patient tolerated the injections well. She will continue with her activity modifications. She will follow-up as instructed. Feel free to call me at any time should questions regarding her orthopedic management arise. I spent 21 minutes in reviewing the patient's records and imaging studies, seeing the patient and documenting in the medical record. (2) Arthritis of right knee: Code(s): M17.11 - Unilateral primary osteoarthritis, right knee Orders: Orders AMB Joint Injection/Aspiration Today M17.12 - Unilateral primary osteoarthritis, left knee AMB Joint Injection/Aspiration Today M17.11 - Unilateral primary osteoarthritis, right knee Coding Level of Care Code Procedure Only Diagnoses Arthritis of left knee M17.12 Arthritis of right knee M17.11 CPT Codes Coding - 55297 Large joint: 32500 - Large joint ([id number]) Coding - 16683 Large joint: 45195 - Large joint ([id number])
== END 2022-12-16 08:57 | disposition home or self-care (01) ==
PROVIDERS: PCP Internal Medicine; Visit Provider Orthopaedic Surgery
DX: M17.0 Bilateral primary osteoarthritis of knee (principal)
CPT/HCPCS: 20610

== ENCOUNTER → 2022-12-16 08:25 | Outpatient (BNVA) | payer OTHER, SELFPAY | PROVIDERS: PCP Internal Medicine; Visit Provider Orthopaedic Surgery | DX: M17.0 Bilateral primary osteoarthritis of knee (principal); Z79.899 Other long term (current) drug therapy | CPT/HCPCS: 20610; J7323 ==

== ENCOUNTER 2022-12-23 08:31 | Outpatient (AMB) | payer OTHER, SELFPAY ==
--- NOTE | 2022-12-23 08:35 | A.OFFVIS_ITS ---
Intake Vital Signs 12/23/22 08:36 Height 5 ft 8 in Weight 244 lb BMI 37.1 Intake Visit Reasons: OV- Euflexxa #3, Bilateral Intake Note: Radha 52 yr old female presents today for her Euflexxa gel injection for bilateral knees. #3 She states that she has got a fairly good relief from the 1st 2 injections. She denies any fevers or chills. Allergies metronidazole [From Flagyl] Allergy (Verified 12/23/22 08:36) Unknown Medication List - Last Reconciled 12/23/22 by Andres Culp MD cholecalciferol (vitamin D3) 50 mcg PO DAILY citalopram 20 mg PO DAILY hydrochlorothiazide 25 mg PO DAILY medroxyprogesterone (Provera) 10 mg PO DAILY 90 days metoprolol succinate ER 200 mg PO DAILY omeprazole 20 mg PO DAILY [facility] Medical History Anxiety Cluster headaches GERD (gastroesophageal reflux disease) History of febrile seizure HTN (hypertension) IBS (irritable bowel syndrome) Migraines On beta jeremiah at home Surgical History History of foot surgery History of tonsillectomy Hx of arthroscopy of right knee Hx of colonoscopy Hx of dilation and curettage Family History Maternal Aunt Breast cancer Paternal Aunt Breast cancer Social History Are you a primary patient care technician instructor to a significant other at home: No Do you presently have visiting nurse or other home services: No Alcohol intake: current Alcohol intake frequency: does not drink Patient Tobacco Use Status: Never used Tobacco Current occupational status: employed 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 Physical Exam Vital Signs: BMI result Body Mass Index 37.1 Extrem Other: Bilateral knee examination shows mild crepitus with range of motion, mild discomfort with range of motion, no instability Office Procedures Joint Injection/Drain Joint Injection/Drain Primary Site: right knee Prep: site was prepped using aseptic technique Injected: 20 mg of (Euflexxa) and 1% plain lidocaine Procedure: The patient tolerated the procedure well Coding 01892 - Large joint Procedure code (CPT) selection complete Joint Injection/Drain Joint Injection/Drain Primary Site: left knee Injected: 20 mg of (Euflexxa) and 1% plain lidocaine Procedure: The patient tolerated the procedure well Coding 91891 - Large joint Procedure code (CPT) selection complete Results Reviewed Results Reviewed: 12/23/22 08:01 Hyaluronate Sodium [Euflexxa] 20 mg INTRAARTIC .STK-MED ONE 12/23/22 08:36 Lidocaine HCl 2 % MPF [Xylocaine 2 % MPF] 5 ml .ROUTE .STK-MED ONE Assessment & Plan Assessment & Plan (1) Arthritis of left knee: Code(s): M17.12 - Unilateral primary osteoarthritis, left knee Plan: Ms. Jeff presents with bilateral knee pains due to degenerative joint disease. The risks and benefits of her 3rd Euflexxa injection were discussed at length with the patient. The patient wished to proceed. She tolerated the bilateral knee injections well. She will continue with her home exercise program. She will follow up with me on an as-needed basis should her symptoms not plateau at an unacceptable level. Feel free to call me at any time should questions regarding her orthopedic management arise. I spent 22 minutes in reviewing the patient's records and imaging studies, seeing the patient and documenting in the medical record. (2) Arthritis of right knee: Code(s): M17.11 - Unilateral primary osteoarthritis, right knee Orders: Orders AMB Joint Injection/Aspiration Today M17.12 - Unilateral primary osteoarthritis, left knee AMB Joint Injection/Aspiration Today M17.11 - Unilateral primary osteoarthritis, right knee Coding Level of Care Code Procedure Only Diagnoses Arthritis of left knee M17.12 Arthritis of right knee M17.11 CPT Codes Coding - 20546 Large joint: 34059 - Large joint ([id number]) Coding - 19072 Large joint: 21476 - Large joint ([id number])
[2022-12-23 08:36] VITALS: BMI 37.1
== END 2022-12-23 09:01 | disposition home or self-care (01) ==
PROVIDERS: PCP Internal Medicine; Visit Provider Orthopaedic Surgery
DX: M17.0 Bilateral primary osteoarthritis of knee (principal)
CPT/HCPCS: 20610

== ENCOUNTER → 2022-12-23 | Outpatient (BNVA) | payer OTHER, SELFPAY | PROVIDERS: PCP Internal Medicine; Visit Provider Orthopaedic Surgery | DX: M17.0 Bilateral primary osteoarthritis of knee (principal) | CPT/HCPCS: 20610; J7323 ==

== ENCOUNTER 2023-03-24 08:29 | Outpatient (AMB) | payer OTHER, SELFPAY ==
--- NOTE | 2023-03-24 08:36 | A.OFFVIS_ITS ---
Intake Vital Signs 03/24/23 08:40 Height 5 ft 8 in Weight 244 lb BMI 37.1 Intake Visit Reasons: Ep, Euflexxa #3, Bilateral last inj 12/23/22 Intake Note: Ms. Jeff presents for follow-up of her bilateral knee pains. The patient did have a series of 3 Euflexxa injections given into her both of her knees several months ago. She states that she had mild relief from the injections. She has had cortisone injections in the past which gave her fairly good relief. She has done physical therapy exercises which aggravated her pain. She has also tried Tylenol and anti-inflammatory medicines which gave her minimal relief. She would like to hold off on knee replacement surgery for as long as possible. Allergies metronidazole [From Flagyl] Allergy (Verified 03/24/23 08:38) Unknown Medication List - Last Reconciled 03/24/23 by Andres Culp MD cholecalciferol (vitamin D3) 50 mcg PO DAILY citalopram 20 mg PO DAILY hydrochlorothiazide 25 mg PO DAILY medroxyprogesterone (Provera) 10 mg PO DAILY 90 days metoprolol succinate ER 200 mg PO DAILY omeprazole 20 mg PO DAILY [facility] Medical History Anxiety Cluster headaches GERD (gastroesophageal reflux disease) History of febrile seizure HTN (hypertension) IBS (irritable bowel syndrome) Migraines On beta jeremiah at home Surgical History History of foot surgery History of tonsillectomy Hx of arthroscopy of right knee Hx of colonoscopy Hx of dilation and curettage Family History Maternal Aunt Breast cancer Paternal Aunt Breast cancer Social History Are you a primary ambulatory care coordinator to a significant other at home: No Do you presently have visiting nurse or other home services: No Alcohol intake: current Alcohol intake frequency: does not drink Patient Tobacco Use Status: Never used Tobacco Current occupational status: employed 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 Physical Exam Const Other: Well-nourished well-developed very friendly female awake alert and oriented x3 in no acute distress Extrem Other: Bilateral lower extremity examination shows good capillary refill, no skin lesions noted, normal sensation light touch Bilateral knee examination shows minimal effusions, palpable crepitus with range of motion, pain with range of motion, range of motion from -3 degrees to 115 degrees, no instability Office Procedures Joint Injection/Drain Joint Injection/Drain Primary Site: left knee Prep: site was prepped using aseptic technique Injected: 40 mg of, Kenalog and 1% plain lidocaine Procedure: The patient tolerated the procedure well Coding 22085 - Large joint Procedure code (CPT) selection complete Joint Injection/Drain Joint Injection/Drain Primary Site: right knee Prep: site was prepped using aseptic technique Injected: 40 mg of, Kenalog and 1% plain lidocaine Procedure: The patient tolerated the procedure well Coding 57541 - Large joint Procedure code (CPT) selection complete Results Reviewed Results Reviewed: X-rays of the patient's bilateral knee show joint space narrowing, subchondral sclerosis, no acute bony abnormalities Assessment & Plan Assessment & Plan (1) Arthritis of left knee: Code(s): M17.12 - Unilateral primary osteoarthritis, left knee Plan: Ms. Jeff presents with bilateral knee pains due to degenerative joint disease. I had a lengthy discussion with the patient regarding the treatment options. She wishes to hold off on surgery for as long as possible. I agree with this plan. The risks and benefits of bilateral knee cortisone injections were discussed at length with the patient. The patient wished to proceed. She tolerated the injections well. She will continue with her activity modifications. She will follow up with me on an as-needed basis should her symptoms not plateau at an unacceptable level over the next few months. Feel free to call me at any time should questions regarding her orthopedic management arise. I spent 22 minutes in reviewing the patient's records and imaging studies, seeing the patient and documenting in the medical record. (2) Arthritis of right knee: Code(s): M17.11 - Unilateral primary osteoarthritis, right knee Orders: Orders AMB Joint Injection/Aspiration Today M17.12 - Unilateral primary osteoarthritis, left knee AMB Joint Injection/Aspiration Today M17.11 - Unilateral primary osteoarthritis, right knee Medications: New ibuprofen 800 mg PO Q8H PRN 90 tabs 2RF pain Coding Level of Care Code Est Pt Level 2 (49981) Diagnoses Arthritis of left knee M17.12 Arthritis of right knee M17.11 CPT Codes Coding - 63088 Large joint: 64182 - Large joint ([id number]) Coding - 31936 Large joint: 71190 - Large joint ([id number])
[2023-03-24 08:40] VITALS: BMI 37.1
== END 2023-03-24 09:07 | disposition home or self-care (01) ==
PROVIDERS: PCP Internal Medicine; Visit Provider Orthopaedic Surgery
DX: M17.0 Bilateral primary osteoarthritis of knee (principal)
CPT/HCPCS: 20610

== ENCOUNTER → 2023-03-24 08:29 | Outpatient (BNVA) | payer OTHER, SELFPAY | PROVIDERS: PCP Internal Medicine; Visit Provider Orthopaedic Surgery | DX: M17.0 Bilateral primary osteoarthritis of knee (principal); Z79.899 Other long term (current) drug therapy | CPT/HCPCS: 20610; J3301 ==

== ENCOUNTER 2023-03-30 08:32 | Outpatient (AMB) | payer OTHER, SELFPAY ==
--- NOTE | 2023-03-30 08:50 | MHC.OFFVIS ---
Intake Vital Signs 03/30/23 08:57 Height 5 ft 8 in Weight 242 lb 8.136 oz BMI 36.9 BP 128/72 Intake Visit Reasons: EMB Chief Of Field Operations Required: No Information Interpreted: non-clinical & clinical Ductfixing Plumber: Ductfixing Plumber Present (Audrey LIND) Accompanied by: Self / Same As Patient Allergies metronidazole [From Flagyl] Allergy (Verified 03/30/23 09:00) Unknown Post menopausal: Yes HPI HPI Comments History of Present Illness Details Presenting for EMB [facility] Medical History Anxiety Cluster headaches GERD (gastroesophageal reflux disease) History of febrile seizure HTN (hypertension) IBS (irritable bowel syndrome) Migraines On beta jeremiah at home Surgical History History of foot surgery History of tonsillectomy Hx of arthroscopy of right knee Hx of colonoscopy Hx of dilation and curettage Family History Maternal Aunt Breast cancer Paternal Aunt Breast cancer Are you a primary child care leader to a significant other at home: No Do you presently have visiting nurse or other home services: No Alcohol intake: current Alcohol intake frequency: does not drink Patient Tobacco Use Status: Never used Tobacco Current occupational status: employed 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 hysteroscopy D&C) & the risks were discussed with the patient including but not limited: pain, uterine perforation, bleeding, infection, possible injury to bladder, bowel, ureter, possible need for blood transfusion with all its possible risks. The patient verbalized understanding all questions answered and signed consent. UPT done in the office was negative The patient was placed into the dorsal lithotomy position; a speculum was inserted in the vagina. Using aseptic technique for the procedure, the cervix was cleansed with Betadine. The anterior lip of the cervix was grasped with a single tooth tenaculum. The uterus was sounded to 7 cm with a 4 mm Pipelle was used. Tissues samples were obtained and placed in formalin, in a patient labeled container and sent to the pathology department. At the end of the procedure, there was minimal bleeding noted The patient tolerated the procedure well and was discharged in good condition with the following instructions: Nothing in the vagina until the bleeding stops. No sex until the bleeding stops, to call if any of the following occurs: fever (>100.4), flu-like symptoms, abdominal pain, heavy bleeding, four smelling vaginal discharge. The patient was instructed to schedule a Follow up appointment in 2 weeks to discuss pathology results of the biopsy and treatment options. This note was generated with a voice recognition program. Some errors may have been overlooked during the review of this note. Sometimes these errors may affect the content or meaning of a given sentence. [id number] Biopsy Results AMB Test Urine AMB Test Urine Negative Last Edit by Audrey Welsh CMA on 03/30/23 09:01 Assessment & Plan Assessment & Plan (1) Abnormal uterine bleeding (AUB): Comment: With myomas Code(s): N93.9 - Abnormal uterine and vaginal bleeding, unspecified Plan: EMB done, see procedure note Orders: Orders AMB HCG Urine Test Today Z32.02 - Encounter for test, result negative AMB Endometrial Biopsy Today N93.9 - Abnormal uterine and vaginal bleeding, unspecified Coding Level of Care Code Procedure Only Diagnoses Abnormal uterine bleeding (AUB) N93.9 CPT Codes Endometrial Biopsy - CPT: 38270-[id number] Biopsy ([id number])
[2023-03-30 08:57] VITALS: BP 128/72; BMI 36.9
== END 2023-03-30 09:30 | disposition home or self-care (01) ==
LOC: HO.HWS 08:32
PROVIDERS: PCP Internal Medicine; Visit Provider Obstetrics & Gynecology
DX: N93.9 Abnormal uterine and vaginal bleeding, unspecified (principal); Z32.02 Encounter for pregnancy test, result negative
CPT/HCPCS: 58100

== ENCOUNTER 2023-03-30 08:32 | Outpatient (REF) | payer OTHER, SELFPAY | END 2023-03-30 08:33 | disposition home or self-care (01) | LOC: HO.LNP 08:32 | PROVIDERS: PCP Internal Medicine; Visit Provider Obstetrics & Gynecology | DX: N93.9 Abnormal uterine and vaginal bleeding, unspecified (principal) | CPT/HCPCS: 58100; 81025; 88305 ==

== ENCOUNTER 2023-04-05 11:35 | Outpatient (REF) | payer OTHER, SELFPAY ==
[2023-04-05 12:02] LABS: MANUAL DIFF FLAG NO
[2023-04-05 12:33] LABS: Basophils Absolute Auto 0.1 X10*3/uL (0.0-0.2); Basophils Percent Auto 0.9 % (0-2); Eosinophils Absolute Auto 0.2 X10*3/uL (0.0-0.4); Eosinophils Percent Auto 1.7 % (0-4); Hematocrit 29.9 % (37.0-47.0); Hemoglobin 8.4 g/dl (12.0-16.0); Imm Gran Abs Auto 0.03 X10*3/uL (0.00-0.03); Imm Gran Pct Auto 0.3 % (0.0-0.4); Lymphocytes Absolute Auto 1.9 X10*3/uL (1.2-4.9); Lymphocytes Percent Auto 18.9 % (20-40); Mean Corpuscular HGB Conc 28.1 g/dl (31.0-35.0); Mean Corpuscular Volume 71.4 fL (80.0-98.0); Mean Platelet Volume 8.7 fL (9.4-12.3); Monocytes Absolute Auto 0.8 X10*3/uL (0.1-1.2); Monocytes Percent Auto 8.5 % (2-11); Neutrophils Absolute Auto 6.8 x10*3/uL (2.0-8.3); Neutrophils Percent Auto 69.7 % (45-73); Platelet Count 582 X10*3/uL (160-400); Red Blood Count 4.19 X10*6/uL (4.20-5.50); Red Cell Distribution Width 16.5 % (11.0-16.0); White Blood Count 9.8 X10*3/uL (4.8-10.8)
[2023-04-05 12:58] LABS: Alanine Aminotransferase 19 U/L (0-31); Alkaline Phosphatase 72 U/L (39-117); Anion Gap 9 (12-20); Aspartate Amino Transferase 14 U/L (5-31); Bilirubin Total 0.3 mg/dL (0.0-1.0); Blood Urea Nitrogen 19 mg/dL (9-16); Calcium 9.1 mg/dL (8.4-10.2); Carbon Dioxide 31 mmol/L (22-29); Chloride 102 mmol/L (96-108); Cholesterol 192 mg/dL (<200); Estimated Glomerular Filt Rate > 60; Glucose Random 91 mg/dL (60-115); HDL Cholesterol 64 mg/dL (>40); LDL Cholesterol Calculated 102 mg/dL (<100); Potassium 4.3 mmol/L (3.3-5.1); Sodium 138 mmol/L (135-145); Total Protein 7.1 g/dL (6.5-8.0); Triglycerides 131 mg/dL (<150)
[2023-04-05 13:13] LABS: Estimated Average Glucose 103 mg/dL; Hemoglobin A1c % 5.2 % (<6.0)
== END 2023-04-05 11:36 | disposition home or self-care (01) ==
LOC: HO.LAB 11:35
PROVIDERS: Visit Provider Internal Medicine
DX: Z00.00 Encounter for general adult medical examination without abnormal findings (principal); E66.09 Other obesity due to excess calories
CPT/HCPCS: 36415; 80053; 80061; 83036; 85025

== ENCOUNTER 2023-05-17 12:29 | Outpatient (AMB) | payer OTHER, SELFPAY ==
--- NOTE | 2023-05-17 12:30 | A.OFFVIS_ITS ---
Intake Vital Signs 05/17/23 12:35 Height 5 ft 8 in Weight 242 lb 8.136 oz BMI 36.9 BP 120/76 Intake Visit Reasons: EMB follow up Clothes Ironer Required: No Information Interpreted: non-clinical & clinical Accompanied by: Self / Same As Patient Allergies metronidazole [From Flagyl] Allergy (Verified 05/17/23 12:35) Unknown HPI HPI Comments History of Present Illness Details The patient is presenting after endometrial biopsy. The patient has no complaints, no vaginal bleeding, no feverishness chills or abdominal pain. Endometrial biopsy pathology showed the following: Endometrium, biopsy: Superficial fragments of inactive endometrium and blood; no atypia or hyperplasia identified The patient is on Provera 10 mg p.o. q.d. day 15-24 PFSH Medical History IBS (irritable bowel syndrome) GERD (gastroesophageal reflux disease) Anxiety History of febrile seizure On beta jeremiah at home Cluster headaches Migraines HTN (hypertension) Surgical History Hx of dilation and curettage Hx of arthroscopy of right knee Hx of colonoscopy History of foot surgery History of tonsillectomy Family History Maternal Aunt Breast cancer Paternal Aunt Breast cancer Social History Are you a primary career development coordinator/teacher to a significant other at home: No Do you presently have visiting nurse or other home services: No Alcohol intake: current Alcohol intake frequency: does not drink Comment: cramping Patient Tobacco Use Status: Never used Tobacco Current occupational status: employed 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 Gender identity: Female Review of Systems Const All systems reviewed & are unremarkable except as noted in HPI and below Reports as per HPI and Reports no additional complaints GI Reports no additional complaints Reports no additional complaints Physical Exam Vital Signs: Last Vital Signs BP 120/76 05/17/23 12:35 BMI result Body Mass Index 36.9 Assessment & Plan Assessment & Plan (1) Abnormal uterine bleeding (AUB): Comment: With myomas Proliferative endometrium on 10/29 since then on Provera reverted back to inactive endometrium on 03/31 Code(s): N93.9 - Abnormal uterine and vaginal bleeding, unspecified Plan: Discussed with the patient the results of an EMB pathology showing inactive en dometrium. Recommended to stay on Provera daily and repeat EMB in 07/30. Provera refilled. Instructions given the patient to call in case of abnormal uterine bleeding prior to that date will proceed with endometrial sampling to rule out endometrial pathology. All questions answered the patient verbalized Medications: Refilled medroxyprogesterone (Provera) start Provera 1 tablet daily 10 mg PO DAILY 90 tabs 1RF 90 days Coding Level of Care Code Est Pt Level 3 (81998) Diagnoses Abnormal uterine bleeding (AUB) N93.9
[2023-05-17 12:35] VITALS: BP 120/76; BMI 36.9
== END 2023-05-17 12:42 | disposition home or self-care (01) ==
LOC: HO.HWS 12:29
PROVIDERS: PCP Internal Medicine; Visit Provider Obstetrics & Gynecology
DX: N93.9 Abnormal uterine and vaginal bleeding, unspecified (principal)
CPT/HCPCS: 99213

== ENCOUNTER → 2023-05-17 12:29 | Outpatient (BNVA) | payer OTHER, SELFPAY | PROVIDERS: PCP Internal Medicine; Visit Provider Obstetrics & Gynecology ==

== ENCOUNTER 2023-06-21 08:24 | Outpatient (AMB) | payer OTHER, SELFPAY ==
[2023-06-21 08:26] VITALS: BMI 36.8
--- NOTE | 2023-06-21 08:26 | MHC.OFFVIS ---
Intake Vital Signs 06/21/23 08:26 Height 5 ft 8 in Weight 242 lb BMI 36.8 Intake Visit Reasons: OV-Bilateral last inj 03/24/23 Intake Note: Radha is a 53 year old female who presents for follow up bilateral knee pain. Patient reports her last injections on 03/24/2024 and she got good relief for about one month and would like to repeat the injections. She does take ibuprofen as needed for discomfort. She denies any fevers or chills. She has done physical therapy exercises which aggravated her pain. She wishes to hold off on total knee replacement surgery for as long as possible. Allergies metronidazole [From Flagyl] Allergy (Verified 06/21/23 08:30) Unknown Medication List - Last Reconciled 06/21/23 by Andres Culp MD cholecalciferol (vitamin D3) 50 mcg PO DAILY citalopram 20 mg PO DAILY hydrochlorothiazide 25 mg PO DAILY ibuprofen 800 mg PO Q8H PRN medroxyprogesterone (Provera) 10 mg PO DAILY 90 days metoprolol succinate ER 200 mg PO DAILY omeprazole 20 mg PO DAILY PFSH Medical History IBS (irritable bowel syndrome) GERD (gastroesophageal reflux disease) Anxiety History of febrile seizure On beta jeremiah at home Cluster headaches Migraines HTN (hypertension) Surgical History Hx of dilation and curettage Hx of arthroscopy of right knee Hx of colonoscopy History of foot surgery History of tonsillectomy Family History Maternal Aunt Breast cancer Paternal Aunt Breast cancer Social History Are you a primary complex care nurse practitioner to a significant other at home: No Do you presently have visiting nurse or other home services: No Alcohol intake: current Alcohol intake frequency: does not drink Comment: cramping Patient Tobacco Use Status: Never used Tobacco Current occupational status: employed 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 identity: Female Physical Exam Vital Signs: BMI result Body Mass Index 36.8 Const Other: Well-nourished well-developed very friendly female awake alert and oriented x3 in no acute distress Extrem Other: Bilateral lower extremity examination shows good capillary refill, no skin lesions noted, normal sensation light touch Bilateral knee examination shows minimal effusions, palpable crepitus with range of motion, pain with range of motion, range of motion from -3 degrees to 115 degrees, no instability Office Procedures Joint Injection/Drain Joint Injection/Drain Primary Site: left knee Injected: 40 mg of, DepoMedrol and 1% plain lidocaine Procedure: The patient tolerated the procedure well Coding - Large joint Procedure code (CPT) selection complete Joint Injection/Drain Joint Injection/Drain Primary Site: right knee Prep: site was prepped using aseptic technique Injected: 40 mg of, DepoMedrol and 1% plain lidocaine Procedure: The patient tolerated the procedure well Coding - Large joint Procedure code (CPT) selection complete Assessment & Plan Assessment & Plan (1) Arthritis of left knee: Code(s): M17.12 - Unilateral primary osteoarthritis, left knee (2) Arthritis of right knee: Code(s): M17.11 - Unilateral primary osteoarthritis, right knee Plan Ms. Jeff presents with bilateral knee pains due to degenerative joint disease. I had a lengthy discussion with the patient regarding the treatment options. She wishes to hold off on total knee replacement surgery for as long as possible. I agree with this plan. The risks and benefits of bilateral knee cortisone injections were discussed at length with the patient. The patient wished to proceed. She tolerated the injections well. She will continue with her home exercise program. She will follow up with me on an as-needed basis should her symptoms not plateau at an unacceptable level over the next few months. Feel free to call me at any time should questions regarding her orthopedic management arise. I spent 22 minutes in reviewing the patient's records and imaging studies, seeing the patient and documenting in the medical record. Orders: Orders AMB Joint Injection/Aspiration Today M17.12 - Unilateral primary osteoarthritis, left knee AMB Joint Injection/Aspiration Today M17.11 - Unilateral primary osteoarthritis, right knee Coding Level of Care Code Est Pt Level 2 (43064) Diagnoses Arthritis of left knee M17.12 Arthritis of right knee M17.11 CPT Codes Coding - 26330 Large joint: 90475 - Large joint ([id number]) Coding - 71547 Large joint: 36524 - Large joint ([id number])
== END 2023-06-21 08:56 | disposition home or self-care (01) ==
PROVIDERS: PCP Internal Medicine; Visit Provider Orthopaedic Surgery
DX: M17.0 Bilateral primary osteoarthritis of knee (principal)
CPT/HCPCS: 20610

== ENCOUNTER → 2023-06-21 08:24 | Outpatient (BNVA) | payer OTHER, SELFPAY | PROVIDERS: PCP Internal Medicine; Visit Provider Orthopaedic Surgery | DX: M17.0 Bilateral primary osteoarthritis of knee (principal) | CPT/HCPCS: 20610; J1020 ==

== ENCOUNTER 2023-09-20 11:07 | Outpatient (AMB) | payer OTHER, SELFPAY ==
[2023-09-20 11:09] VITALS: BMI 36.8
--- NOTE | 2023-09-20 11:09 | A.OFFVIS_ITS ---
Vital Signs 09/20/23 11:09 Height 5 ft 8 in Weight 242 lb BMI 36.8 Intake Visit Reasons: OV-Bilateral last inj 06/21/2023 Intake Note: Radha is a 53 year old female who presents with complaints of progressively worsening bilateral knee pains. The patient has had cortisone injections in the past which gave her minimal relief. She has also had viscosupplementation inje ctions which gave her fairly good relief. She wishes to hold off on total knee replacement surgery for as long as possible. She has done physical therapy exercises which aggravated her pain. She has also tried Tylenol and anti- inflammatory medicines which gave her minimal relief. Allergies metronidazole [From Flagyl] Allergy (Verified 09/20/23 11:14) Unknown Medication List - Last Reconciled 09/20/23 by Andres Culp MD cholecalciferol (vitamin D3) 50 mcg PO DAILY citalopram 20 mg PO DAILY hydrochlorothiazide 25 mg PO DAILY ibuprofen 800 mg PO Q8H PRN medroxyprogesterone (Provera) 10 mg PO DAILY 90 days metoprolol succinate ER 200 mg PO DAILY omeprazole 20 mg PO DAILY PFSH Medical History IBS (irritable bowel syndrome) GERD (gastroesophageal reflux disease) Anxiety History of febrile seizure On beta jeremiah at home Cluster headaches Migraines HTN (hypertension) Surgical History Hx of dilation and curettage Hx of arthroscopy of right knee Hx of colonoscopy History of foot surgery History of tonsillectomy Family History Maternal Aunt Breast cancer Paternal Aunt Breast cancer Social History Are you a primary field care coordinator to a significant other at home: No Do you presently have visiting nurse or other home services: No Alcohol intake: current Alcohol intake frequency: does not drink Comment: cramping Patient Tobacco Use Status: Never used Tobacco Current occupational status: employed 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 identity: Female Physical Exam Vital Signs: BMI result Body Mass Index 36.8 Const Other: Well-nourished well-developed very friendly female awake alert and oriented x3 in no acute distress Extrem Other: Bilateral lower extremity examination shows good capillary refill, no skin lesions noted, normal sensation light touch Bilateral knee examination shows minimal effusions, palpable crepitus with range of motion, pain with range of motion, no instability Results Reviewed Results Reviewed: X-rays of the patient's bilateral knee show joint space narrowing, subchondral sclerosis, no acute bony abnormalities Assessment & Plan Assessment & Plan (1) Arthritis of left knee: Code(s): M17.12 - Unilateral primary osteoarthritis, left knee Category: Medical (2) Arthritis of right knee: Code(s): M17.11 - Unilateral primary osteoarthritis, right knee Category: Medical Plan Ms. Jeff presents with bilateral knee pains due to osteoarthritis. I had a lengthy discussion with the patient regarding the treatment options. She wishes to hold off on total knee replacement surgery for as long as possible. I agree with this plan. Thus, I will see whether or not the patient's insurance company will cover a Durolane viscosupplementation injection for both of her knees. I we will see her back once the injections are available. If she fails continued non operative treatments we will further discuss the risks and benefits of total knee replacement surgery. Feel free to call me at any time should questions regarding her orthopedic management arise. I spent 21 minutes in reviewing the patient's records and imaging studies, seeing the patient and documenting in the medical record. Coding Level of Care Code Est Pt Level 3 (81496) Diagnoses Arthritis of left knee M17.12 Arthritis of right knee M17.11
== END 2023-09-20 11:38 | disposition home or self-care (01) ==
PROVIDERS: PCP Internal Medicine; Visit Provider Orthopaedic Surgery
DX: M17.0 Bilateral primary osteoarthritis of knee (principal)
CPT/HCPCS: 99213

== ENCOUNTER → 2023-09-20 11:07 | Outpatient (BNVA) | payer OTHER, SELFPAY | PROVIDERS: PCP Internal Medicine; Visit Provider Orthopaedic Surgery ==

== ENCOUNTER 2023-09-29 14:39 | Outpatient (AMB) | payer OTHER, SELFPAY ==
--- NOTE | 2023-09-29 14:43 | A.OFFVIS_ITS ---
Vital Signs 09/29/23 14:44 Height 5 ft 8 in Weight 242 lb BMI 36.8 Intake Visit Reasons: Bilateral Knee Durolane Injections Intake Note: Radha is a 53 year old female who presents with complaints of progressively worsening bilateral knee pains. She describes her pains as sharp in nature. Her pains have gotten worse over the last few years in spite of continued non operative treatments. She has had cortisone injections which gave her minimal relief. She has also had viscosupplementation injections which gave her fairly good relief. She has tried Tylenol and anti-inflammatory medicines which gave her minimal relief. She wishes to hold off on surgery for as long as possible. Allergies metronidazole [From Flagyl] Allergy (Verified 09/29/23 14:46) Unknown Medication List - Last Reconciled 09/30/23 by Andres Culp MD cholecalciferol (vitamin D3) 50 mcg PO DAILY citalopram 20 mg PO DAILY hydrochlorothiazide 25 mg PO DAILY ibuprofen 800 mg PO Q8H PRN medroxyprogesterone (Provera) 10 mg PO DAILY 90 days metoprolol succinate ER 200 mg PO DAILY omeprazole 20 mg PO DAILY PFSH Medical History IBS (irritable bowel syndrome) GERD (gastroesophageal reflux disease) Anxiety History of febrile seizure On beta jeremiah at home Cluster headaches Migraines HTN (hypertension) Surgical History Hx of dilation and curettage Hx of arthroscopy of right knee Hx of colonoscopy History of foot surgery History of tonsillectomy Family History Maternal Aunt Breast cancer Paternal Aunt Breast cancer Social History Are you a primary health and social care teacher to a significant other at home: No Do you presently have visiting nurse or other home services: No Alcohol intake: current Alcohol intake frequency: does not drink Comment: cramping Patient Tobacco Use Status: Never used Tobacco Current occupational status: employed 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 Physical Exam Vital Signs: BMI result Body Mass Index 36.8 Const Other: Well-nourished well-developed very friendly female awake alert and oriented x3 in no acute distress Extrem Other: Bilateral lower extremity examination shows good capillary refill, no skin lesions noted, normal sensation light touch Bilateral knee examination shows minimal effusions, palpable crepitus with range of motion, pain with range of motion, no instability Office Procedures Joint Injection/Drain Joint Injection/Drain Primary Site: left knee Prep: site was prepped using aseptic technique Injected: 60 mg of (Durolane viscosupplementation) and 1% plain lidocaine Procedure: The patient tolerated the procedure well Coding 30931 - Large joint Procedure code (CPT) selection complete Joint Injection/Drain Joint Injection/Drain Primary Site: right knee Prep: site was prepped using aseptic technique Injected: 60 mg of (Durolane viscosupplementation) Procedure: The patient tolerated the procedure well Coding 15879 - Large joint Procedure code (CPT) selection complete Results Reviewed Results Reviewed: X-rays of the patient's bilateral knee show joint space narrowing, subchondral sclerosis, no acute bony abnormalities Assessment & Plan Assessment & Plan (1) Arthritis of left knee: Code(s): M17.12 - Unilateral primary osteoarthritis, left knee Category: Medical (2) Arthritis of right knee: Code(s): M17.11 - Unilateral primary osteoarthritis, right knee Category: Medical Plan Ms. Jeff presents with bilateral knee pains due to degenerative joint disease. I had a lengthy discussion with the patient regarding the treatment options. She wishes to hold off on surgery for as long as possible. I agree with this plan. She has not gotten good relief from cortisone injections in the past. Thus, the risks and benefits of bilateral knee Durolane viscosupplementation injections were discussed at length with the patient. The patient wished to proceed. She tolerated the injections well. She will continue with her home exercise program. She will follow up with me on an as-needed basis should her symptoms not plateau at an unacceptable level over the next few months. Feel free to call me at any time should questions regarding her orthopedic management arise. I spent 21 minutes in reviewing the patient's records and imaging studies, seeing the patient and documenting in the medical record. Orders: Orders AMB Joint Injection/Aspiration 09/29/23 M17.12 - Unilateral primary osteoarthritis, left knee AMB Joint Injection/Aspiration 09/29/23 M17.11 - Unilateral primary osteoarthritis, right knee Coding Level of Care Code Est Pt Level 3 (44451) Diagnoses Arthritis of left knee M17.12 Arthritis of right knee M17.11 CPT Codes Coding - 69434 Large joint: 25964 - Large joint ([id number]) Coding - 64162 Large joint: 74999 - Large joint ([id number])
[2023-09-29 14:44] VITALS: BMI 36.8
== END 2023-09-29 15:45 | disposition home or self-care (01) ==
PROVIDERS: PCP Internal Medicine; Visit Provider Orthopaedic Surgery
DX: M17.0 Bilateral primary osteoarthritis of knee (principal)
CPT/HCPCS: 20610; 99214

== ENCOUNTER → 2023-09-29 14:39 | Outpatient (BNVA) | payer OTHER, SELFPAY | PROVIDERS: PCP Internal Medicine; Visit Provider Orthopaedic Surgery | DX: M17.0 Bilateral primary osteoarthritis of knee (principal) | CPT/HCPCS: 20610; J7318 ==

== ENCOUNTER 2023-11-17 15:55 | Outpatient (REF) | payer OTHER, SELFPAY ==
--- NOTE | ~2023-11-17 | XR_ITS ---
EXAMINATION: XR THORACIC SPINE CLINICAL INFORMATION: Back pain COMPARISON: None available. TECHNIQUE: 3 views of the thoracic spine were obtained. FINDINGS: Normal alignment and thoracic kyphosis. Mild multilevel degenerative disc disease of the midthoracic spine as well as C5-C6. No fracture is evident. XR/XR thoracic spine 3V IMPRESSION: Mild multilevel degenerative disc disease. Normal alignment. No fracture is evident.
== END 2023-11-17 15:56 | disposition home or self-care (01) ==
LOC: HO.XRAY 15:55
PROVIDERS: PCP Internal Medicine; Visit Provider Internal Medicine
DX: M54.6 Pain in thoracic spine (principal)
CPT/HCPCS: 72072

== ENCOUNTER 2023-12-12 15:26 | Outpatient (AMB) | payer OTHER, SELFPAY ==
[2023-12-12 15:52] VITALS: BMI 36.5
--- NOTE | 2023-12-12 15:52 | MHC.OFFVIS ---
Vital Signs 12/12/23 15:52 Height 5 ft 8 in Weight 240 lb 4.862 oz BMI 36.5 Intake Visit Reasons: pelvic pain Landscape Drafter Required: No Information Interpreted: non-clinical & clinical Java Integration Developer: Java Integration Developer Present (Audrey LIND) Accompanied by: Self / Same As Patient Allergies metronidazole [From Flagyl] Allergy (Verified 12/12/23 15:52) Unknown Is last menstrual period known: No HPI Comments Details: The patient is presenting with bilateral lower quadrant pelvic pain started 2 weeks ago. It's intermittent in nature lasting few seconds and occurs multiple times a day. it is associated with an episode of vaginal bleeding, no constipation or dysuria, no frequency incontinence, no vaginal discharge, no n/v, no feverishness Last co testing was in 07/27 was negative The patient had endometrial biopsy in 10/29 which showed proliferative endometrium and since then has been on daily Provera, EMB done in 03/31 showed inactive endometrium Last mammogram was in 10/29 was negative PFSH Medical History IBS (irritable bowel syndrome) GERD (gastroesophageal reflux disease) Anxiety History of febrile seizure On beta jeremiah at home Cluster headaches Migraines HTN (hypertension) Surgical History Hx of dilation and curettage Hx of arthroscopy of right knee Hx of colonoscopy History of foot surgery History of tonsillectomy Family History Maternal Aunt Breast cancer Paternal Aunt Breast cancer Social History Are you a primary morning caregiver to a significant other at home: No Do you presently have visiting nurse or other home services: No Alcohol intake: current Alcohol intake frequency: does not drink Comment: cramping Patient Tobacco Use Status: Never used Tobacco Current occupational status: employed 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 Review of Systems Const All systems reviewed & are unremarkable except as noted in HPI and below Physical Exam Vital Signs: BMI result Body Mass Index 36.5 General: Yes no CVA tenderness External Female Exam: normal external appearance and normal appearance of the urethra Speculum Exam - Vagina: normal appearance of the vagina, normal palpation, no lesions and no masses Speculum Exam - Cervix: normal appearance of the cervix, normal palpation, no lesions, no masses and nontender Bimanual exam- vagina & uterus: normal bimanual exam, normal palpation, uterine size normal, normal palpation, uterine shape normal, No Cervical tenderness present and non-tender Bimanual Exam- Adnexa, other: normal adnexae Back/Spine/Pelvis Back: no CVA tenderness Assessment & Plan Assessment & Plan (1) Pelvic pain: Comment: History of myoma Code(s): R10.2 - Pelvic and perineal pain Category: Medical Plan: Urine dip done in the office were both negative. GC and chlamydia taken and pelvic ultrasound ordered. Discussed with the patient the differential diagnosis of pelvic pain including but not limited to adnexal, uterine masses, pelvic infections (PID), GI the (Irritable bowel syndrome, diverticulitis, others), musculoskeletal, myofascial pain abdominal wall , adhesions, endometriosis, psychological and others causes. Will check results and treat accordingly. All questions answered, the patient verbalized understanding. Instructed the patient to schedule follow-up appointment in 2 weeks (2) Postmenopausal bleeding: Comment: History of proliferative endometrium in 10/29 on daily Provera Code(s): N95.0 - Postmenopausal bleeding Category: Medical Plan: Mammogram ordered, Discussed with the patient the differential diagnosis of post menopausal bleeding with normal pelvic exam including but not limited to, endometrial hyperplasia, cancer, polyps and other causes; co testing done, recommended ultrasound to measure the endometrial stripe; discussed with the patient that if the endometrial thickness is 4 mm or less the negative predictive value of endometrial pathology is 99%, otherwise If endometrial thickness is more than 4 mm will proceed with endometrial sampling versus hysteroscopy D&C polypectomy depending on the ultrasound findings. Instructed the patient to schedule an ultrasound with a follow-up appointment in 2 weeks. All questions answered, the patient verbalized understanding and agreed with the plan. This note was generated with a voice recognition program. Some errors may have been overlooked during the review of this note. Sometimes these errors may affect the content or meaning of a given sentence. Orders: Orders MM tomosynthesis screening BI Today Z12.31 - Encounter for screening mammogram for malignant neoplasm of breast US pelvic and transvaginal Today N95.0 - Postmenopausal bleeding, R10.2 - Pelvic and perineal pain Coding Level of Care Code Est Pt Level 3 (23710) Diagnoses Pelvic pain R10.2 Postmenopausal bleeding N95.0
== END 2023-12-12 16:11 | disposition home or self-care (01) ==
PROVIDERS: PCP Internal Medicine; Visit Provider Obstetrics & Gynecology
DX: R10.2 Pelvic and perineal pain (principal); N95.0 Postmenopausal bleeding
CPT/HCPCS: 99213

== ENCOUNTER 2023-12-12 15:26 | Outpatient (REF) | payer OTHER, SELFPAY ==
[2023-12-13 18:00] LABS: CT PCR NOT DETECTED (Not Detect.); NG PCR NOT DETECTED (Not Detect.)
== END 2023-12-12 15:27 | disposition home or self-care (01) ==
LOC: HO.LNP 15:26
PROVIDERS: PCP Internal Medicine; Visit Provider Obstetrics & Gynecology
DX: R10.2 Pelvic and perineal pain (principal)
CPT/HCPCS: 87491; 87591

== ENCOUNTER 2023-12-16 12:52 | Outpatient (REF) | payer OTHER, SELFPAY ==
--- NOTE | ~2023-12-16 | US_ITS ---
EXAMINATION: US PELVIS CLINICAL INFORMATION: Pelvic and perineal pain COMPARISON: August 28 TECHNIQUE: Ultrasound of the pelvis is performed using both transabdominal and transvaginal transducers along with Doppler. Transvaginal imaging is performed due to inadequate visualization transabdominally. FINDINGS: LMP 11/21/2023 Uterus: The uterus is anteverted and measures 10.4 x 5.8 x 8.0 cm. With uterine volume is 251 mL The double wall endometrial thickness is 0.5 mm. There are multiple uterine fibroids such as in the fundus 4.2 x 3.2 x 4.0 cm on the right, 2.2 x 2.2 x 2.0 cm on the left and smaller size fibroids in the body measured 1.1 x 1.1 x 1.3 cm and 1.7 x 1.7 x 1.8 cm. Adnexa: Right ovary is visualized. There is normal color flow to the adnexa. There is no ovarian torsion. There is no pelvic ascites or fluid collection. Right ovary measures 2.2 x 2.3 x 1.8 cm. With a volume RIGHT ovary 4.8 mL Left ovary measures not seen US/US pelvic and transvaginal IMPRESSION: Multiple uterine fibroids. Unremarkable endometrium. Nonvisualization of left ovary and unremarkable right ovary Electronically signed by: Nima Gilliland MD 12/30/2023 01:26 PM EDT
== END 2023-12-16 12:53 | disposition home or self-care (01) ==
LOC: HO.US 12:52
PROVIDERS: PCP Internal Medicine; Visit Provider Obstetrics & Gynecology
DX: R10.2 Pelvic and perineal pain (principal); N95.0 Postmenopausal bleeding
CPT/HCPCS: 76830; 76856

== ENCOUNTER 2023-12-23 13:50 | Outpatient (REF) | payer OTHER, SELFPAY ==
--- NOTE | ~2023-12-23 | MM_ITS ---
EXAMINATION: MM SCREENING DIGITAL BREAST TOMOSYNTHESIS, BILATERAL CLINICAL INFORMATION: Screening. Asymptomatic. COMPARISON: Mammography: This study is compared with prior exams dating back to 2020. TECHNIQUE: Digital breast tomosynthesis is performed in both the craniocaudal and mediolateral oblique views along with computer-aided detection (CAD). Synthesized 2D images are generated from the tomosynthesis. FINDINGS: The breasts are heterogeneously dense, which may obscure small masses (ACR BI-RADS breast composition Category c). There are no significant masses, abnormal calcifications, or other abnormalities. MM/MM tomosynthesis screening BI IMPRESSION: No mammographic evidence of malignancy. ASSESSMENT: BI-RADS BI-RADS 1 - Negative RECOMMENDATION: Routine annual mammography screening. 1 year F/U This examination should not preclude the clinical evaluation of a suspicious palpable abnormality. This patient's information was entered into a reminder system with a target due date for their next mammogram. Electronically signed by: Claudette Schroeder MD 01/21/2024 03:59 PM EDT
== END 2023-12-23 13:51 | disposition home or self-care (01) ==
LOC: HO.MAMMO 13:50
PROVIDERS: PCP Internal Medicine; Visit Provider Advanced Practice Midwife
DX: Z12.31 Encounter for screening mammogram for malignant neoplasm of breast (principal)
CPT/HCPCS: 77063; 77067

== ENCOUNTER → 2023-12-23 14:00 | Outpatient (BNV) | payer OTHER, SELFPAY | PROVIDERS: PCP Internal Medicine; Visit Provider Radiology Diagnostic Radiology | DX: Z12.31 Encounter for screening mammogram for malignant neoplasm of breast (principal) | CPT/HCPCS: 77063; 77067 ==

== ENCOUNTER 2023-12-29 09:38 | Outpatient (AMB) | payer OTHER, SELFPAY ==
--- NOTE | 2023-12-29 09:44 | A.OFFVIS_ITS ---
Vital Signs 12/29/23 09:45 Height 5 ft 8 in Weight 240 lb BMI 36.5 Intake Visit Reasons: Left knee pain Intake Note: Radha is a 53 year old female who presents with complaints of progressively worsening left knee pain and giving way. Most of the pain is along the medial aspect of the patient's left knee. She did undergo right knee arthroscopic surgery by Dr. Israel Man in 2009. She got very good relief from that surgery. She states that her left knee will give out several times per day. She has failed the last 3 months of conservative treatment. She has had both Durolane and Euflexxa viscosupplementation injections which gave her minimal relief. She also had cortisone injections which gave her no relief. She has tried Tylenol and anti-inflammatory medicines which gave her minimal relief. The patient would like to hold off on total knee replacement surgery if at all possible. Allergies metronidazole [From Flagyl] Allergy (Verified 12/29/23 09:46) Unknown Medication List - Last Reconciled 12/29/23 by Andres Culp MD cholecalciferol (vitamin D3) 50 mcg PO DAILY citalopram 20 mg PO DAILY hydrochlorothiazide 25 mg PO DAILY ibuprofen 800 mg PO Q8H PRN medroxyprogesterone (Provera) 10 mg PO DAILY 90 days metoprolol succinate ER 200 mg PO DAILY omeprazole 20 mg PO DAILY PFSH Medical History IBS (irritable bowel syndrome) GERD (gastroesophageal reflux disease) Anxiety History of febrile seizure On beta jeremiah at home Cluster headaches Migraines HTN (hypertension) Surgical History Hx of dilation and curettage Hx of arthroscopy of right knee Hx of colonoscopy History of foot surgery History of tonsillectomy Family History Maternal Aunt Breast cancer Paternal Aunt Breast cancer Social History Are you a primary care management assistant to a significant other at home: No Do you presently have visiting nurse or other home services: No Alcohol intake: current Alcohol intake frequency: does not drink Comment: cramping Patient Tobacco Use Status: Never used Tobacco Current occupational status: employed 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 Gender identity: Female Physical Exam Vital Signs: BMI result Body Mass Index 36.5 Const Other: Well-nourished well-developed very friendly female awake alert and oriented x3 in no acute distress Extrem Other: Bilateral lower extremity examination shows good capillary refill, no skin lesions noted, normal sensation light touch Left knee examination shows a minimal effusion, mild crepitus with range of motion, tenderness along her medial joint line, positive Mariah's test, no instability Results Reviewed Results Reviewed: X-rays of the patient's left knee taken previously show mild to moderate joint space narrowing most significant in the medial compartment, no acute bony abnormalities Assessment & Plan Assessment & Plan (1) Tear of medial meniscus of left knee: Code(s): S83.242A - Other tear of medial meniscus, current injury, left knee, initial encounter Category: Medical (2) Left knee pain: Code(s): M25.562 - Pain in left knee Category: Medical Plan Ms. Jeff presents with progressively worsening left knee pain and mechanical symptoms due to a tear of her medial meniscus as well as degenerative joint disease. I had a lengthy discussion with the patient regarding the treatment options. She wishes to hold off on knee replacement surgery for as long as possible. The risks and benefits of left knee arthroscopic surgery were discussed at length with the patient. The patient did do well from right knee arthroscopic surgery several years ago. Because of the patient's mechanical symptoms I do feel that she will get significant relief from the arthroscopic procedure. The patient does understand that she may not get 100% relief of her symptoms depending on the severity of her degenerative changes. She wishes to proceed with surgery. She will be scheduled for next available date. She will follow-up as instructed. Feel free to call me at any time should questions regarding her orthopedic management arise. I spent 21 minutes in reviewing the patient's records and imaging studies, seeing the patient and documenting in the medical record. Coding Level of Care Code Est Pt Level 3 (19855) Diagnoses Tear of medial meniscus of left knee S83.242A Left knee pain M25.562
[2023-12-29 09:45] VITALS: BMI 36.5
== END 2023-12-29 10:10 | disposition home or self-care (01) ==
PROVIDERS: PCP Internal Medicine; Visit Provider Orthopaedic Surgery
DX: S83.242A Other tear of medial meniscus, current injury, left knee, initial encounter (principal); M25.562 Pain in left knee
CPT/HCPCS: 99214

== ENCOUNTER → 2023-12-29 09:38 | Outpatient (BNVA) | payer OTHER, SELFPAY | PROVIDERS: PCP Internal Medicine; Visit Provider Orthopaedic Surgery ==

== ENCOUNTER 2024-01-04 14:00 | Outpatient (RCR) | payer OTHER, SELFPAY | END 2024-01-17 11:45 | disposition home or self-care (01) | LOC: HO.PTCHIC 14:00 | PROVIDERS: PCP Internal Medicine; Visit Provider Internal Medicine | DX: S39.012D Strain of muscle, fascia and tendon of lower back, subsequent encounter (principal) | CPT/HCPCS: 97110; 97162 ==

== ENCOUNTER 2024-02-14 14:27 | Outpatient (AMB) | payer OTHER, SELFPAY ==
--- NOTE | 2024-02-14 14:32 | AM.OFFWIN_ITS ---
Intake Vital Signs 02/14/24 14:33 Height 5 ft 8 in Weight 252 lb BMI 38.3 BP 130/84 Blood Pressure Location Rt brachial Position Sitting Pulse 82 Pulse Source Pulse Oximeter Pulse Oximetry (%) 97 Oxygen Delivery Method Room Air Intake Visit Reasons: EP-rt ear pain Intake Note: Patient here for right ear pain, she states she was cleaning her ears last week and when she took it out the cotton was no longer attached to the stick. Patient Tobacco Use Status: Never used Tobacco Allergies metronidazole [From Flagyl] Allergy (Verified 02/14/24 14:34) Unknown Do you need a note to return to daycare/school/sports/work: No HPI HPI Comments History of Present Illness Details She presents to office with R ear pain Last week she was cleaning with Q tip and cotton got stuck in ear Unsure if FB present Feels pressure R ear and has some crackling No drainage No other symptoms PFSH Medical History IBS (irritable bowel syndrome) GERD (gastroesophageal reflux disease) Anxiety History of febrile seizure On beta jeremiah at home Cluster headaches Migraines HTN (hypertension) Surgical History Hx of dilation and curettage Hx of arthroscopy of right knee Hx of colonoscopy History of foot surgery History of tonsillectomy Family History Maternal Aunt Breast cancer Paternal Aunt Breast cancer Social History Are you a primary director critical care to a significant other at home: No Do you presently have visiting nurse or other home services: No Alcohol intake: current Alcohol intake frequency: does not drink Comment: cramping Patient Tobacco Use Status: Never used Tobacco Current occupational status: employed 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 Speaking full sentences. Skin: Warm dry throughout Eye: EOMI HENT: Airway patent. Uvula midline. No pharyngeal erythema or edema. No MILLING/POLISHING OPERATOR. Bilateral canals clear. TM non-erythematous, non-bulging. No TM perforation or hemotympanum noted. Slight fluid behind R TM, Respiratory: No respiratory distress Cardiac: RRR Neurology: A/O. No aphasia or facial droop. Gait without abnormality Psych: Good mood and affect Assessment & Plan Assessment & Plan (1) Otalgia of right ear: Code(s): H92.01 - Otalgia, right ear Plan: No OM or OE on exam No trauma or FB Claritin OTC x 1 week Tylenol/motrin prn pain F/U with PCP Call with concerns Pt expressed verbal understanding and had no additional questions Coding Level of Care Code Est Pt Level 3 (42183) Diagnoses Otalgia of right ear H92.01
[2024-02-14 14:33] VITALS: BP 130/84; PULSE 82; O2SAT 97; BMI 38.3
== END 2024-02-14 14:50 | disposition home or self-care (01) ==
PROVIDERS: PCP Internal Medicine; Visit Provider Physician Assistant
DX: H92.01 Otalgia, right ear (principal)

== ENCOUNTER → 2024-02-14 14:27 | Outpatient (BNVA) | payer OTHER, SELFPAY | PROVIDERS: PCP Internal Medicine; Visit Provider Physician Assistant ==

== ENCOUNTER 2024-02-15 13:08 | Outpatient (AMB) | payer OTHER, SELFPAY ==
--- NOTE | 2024-02-15 13:13 | A.OFFVIS_ITS ---
Vital Signs 02/15/24 13:14 Height 5 ft 8 in Weight 251 lb 5.231 oz BMI 38.2 Intake Visit Reasons: EMB / US results Senior Quality Engineer Required: No Information Interpreted: non-clinical & clinical Parts Fabricator: Parts Fabricator Present (Audrey LIND) Accompanied by: Self / Same As Patient Allergies metronidazole [From Flagyl] Allergy (Verified 02/15/24 13:21) Unknown Post menopausal: Yes HPI Comments Details: Presenting for follow-up. The patient had 2 episodes of vaginal bleeding on daily Provera Pelvic ultrasound done recently which showed the following: Uterus: The uterus is anteverted and measures 10.4 x 5.8 x 8.0 cm. With uterine volume is 251 mL The double wall endometrial thickness is 0.5 mm. There are multiple uterine fibroids such as in the fundus 4.2 x 3.2 x 4.0 cm on the right, 2.2 x 2.2 x 2.0 cm on the left and smaller size fibroids in the body measured 1.1 x 1.1 x 1.3 cm and 1.7 x 1.7 x 1.8 cm. Adnexa: Right ovary is visualized. There is normal color flow to the adnexa. There is no ovarian torsion. There is no pelvic ascites or fluid collection. Right ovary measures 2.2 x 2.3 x 1.8 cm. With a volume RIGHT ovary 4.8 mL Left ovary measures not seen GC/CT were negative last visit urine dip was negative Last co testing was in 07/27 was negative The patient had endometrial biopsy in 10/29 which showed proliferative endometrium and since then has been on daily Provera, EMB done in 03/31 showed inactive endometrium Last mammogram was in 12/30 was BI-RADS 1 [facility] Medical History IBS (irritable bowel syndrome) GERD (gastroesophageal reflux disease) Anxiety History of febrile seizure On beta jeremiah at home Cluster headaches Migraines HTN (hypertension) Surgical History Hx of dilation and curettage Hx of arthroscopy of right knee Hx of colonoscopy History of foot surgery History of tonsillectomy Family History Maternal Aunt Breast cancer Paternal Aunt Breast cancer Social History Are you a primary field care advocate to a significant other at home: No Do you presently have visiting nurse or other home services: No Alcohol intake: current Alcohol intake frequency: does not drink Comment: cramping Patient Tobacco Use Status: Never used Tobacco Current occupational status: employed 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 hysteroscopy D&C) & the risks were discussed with the patient including but not limited: pain, uterine perforation, bleeding, infection, possible injury to bladder, bowel, ureter, possible need for blood transfusion with all its possible risks. The patient verbalized understanding all questions answered and signed consent. The patient was placed into the dorsal lithotomy position; a speculum was inserted in the vagina. Using aseptic technique for the procedure, the cervix was cleansed with Betadine. The anterior lip of the cervix was grasped with a single tooth tenaculum. The uterus was sounded to 7 cm with a 4 mm Pipelle was used. Tissues samples were obtained and placed in formalin, in a patient labeled container and sent to the pathology department. At the end of the procedure, there was minimal bleeding noted The patient tolerated the procedure well and was discharged in good condition with the following instructions: Nothing in the vagina until the bleeding stops. No sex until the bleeding stops, to call if any of the following occurs: fever (>100.4), flu-like symptoms, abdominal pain, heavy bleeding, four smelling vaginal discharge. The patient was instructed to schedule a Follow up appointment in 2 weeks to discuss pathology results of the biopsy and treatment options. This note was generated with a voice recognition program. Some errors may have been overlooked during the review of this note. Sometimes these errors may affect the content or meaning of a given sentence. [id number] Biopsy Assessment & Plan Assessment & Plan (1) Postmenopausal bleeding: Comment: History of proliferative endometrium in 10/29 on daily Provera Code(s): N95.0 - Postmenopausal bleeding Category: Medical Plan: EMB repeated, see procedure note. Instructions given the patient to schedule a follow-up appointment within a week (2) Fibroid, uterine: Comment: With bleeding recurrent Code(s): D25.9 - Leiomyoma of uterus, unspecified Category: Medical Plan: Discussed with the patient the results of the ultrasound and the size of the myomas. Discussed with the patient risk of myosarcoma and symptoms that are caused by myomas including but not limited to pelvic pain, pressure symptoms, abnormal uterine bleeding. In addition discussed with the patient options of treatment for myomas including: Serial ultrasounds periodically to follow-up on the size of the myoma with progesterone treatment, uterine artery embolization or endometrial ablation versus definitive surgical treatment including hysterectomy . All pros and cons, risks and benefits of all options were discussed with the patient. The patient decided to proceed with definite surgical management. Discussed with the patient the different types of hysterectomies including, vaginal, laparoscopic assisted vaginal, robotic assisted laparoscopic,& abdominal with BSO. All pros, cons, r/b of each approach were discussed the patient including evidence that morbidity is less and recovery is shorter with minimally invasive approaches to hysterectomy. Discussed with the patient the lack of availability of the robot [employer] robot and/or minimally invasive marketing performance analyst specialist at [facility]. Will refer to [facility] minimally invasive sales professional surgery. Instructed the patient to call our office back in case a referral appointment is not scheduled, missed or canceled so that we will assist on rescheduling another appointment, the patient verbalized understanding agreed with the plan. Orders: Orders AMB Endometrial Biopsy Today N95.0 - Postmenopausal bleeding Coding Level of Care Code Est Pt Level 3 (33961) Procedure Only Diagnoses Postmenopausal bleeding N95.0 Fibroid, uterine D25.9 CPT Codes Endometrial Biopsy - CPT: 18479-[id number] Biopsy ([id number])
[2024-02-15 13:14] VITALS: BMI 38.2
== END 2024-02-15 13:38 | disposition home or self-care (01) ==
PROVIDERS: PCP Internal Medicine; Visit Provider Obstetrics & Gynecology
DX: N95.0 Postmenopausal bleeding (principal); D25.9 Leiomyoma of uterus, unspecified
CPT/HCPCS: 58100; 99213

== ENCOUNTER 2024-02-15 13:08 | Outpatient (REF) | payer OTHER, SELFPAY | END 2024-02-15 13:09 | disposition home or self-care (01) | LOC: HO.LNP 13:08 | PROVIDERS: PCP Internal Medicine; Visit Provider Obstetrics & Gynecology | DX: N93.9 Abnormal uterine and vaginal bleeding, unspecified (principal) | CPT/HCPCS: 58100; 88305 ==

== ENCOUNTER 2024-02-22 14:45 | Outpatient (AMB) | payer OTHER, SELFPAY ==
--- NOTE | 2024-02-22 14:53 | MHC.OFFVIS ---
Vital Signs 02/22/24 14:58 Height 5 ft 8 in Weight 251 lb 5.231 oz BMI 38.2 Intake Visit Reasons: EMB results Allergies metronidazole [From Flagyl] Allergy (Verified 02/15/24 13:21) Unknown HPI Comments Details: The patient is presenting after endometrial biopsy. The patient has no complaints, no vaginal bleeding, no feverishness chills or abdominal pain. The endometrial biopsy pathology report showed the following: Endometrium, biopsy: Superficial strips of benign inactive endometrium and benign endocervical glandular epithelium; no atypia or carcinoma The patient was referred to [facility] minimally invasive surgery for definitive treatment for uterine myomas and vaginal bleeding, appointment scheduled Dr. Carlin on 03/13 [facility] Medical History IBS (irritable bowel syndrome) GERD (gastroesophageal reflux disease) Anxiety History of febrile seizure On beta jeremiah at home Cluster headaches Migraines HTN (hypertension) Surgical History Hx of dilation and curettage Hx of arthroscopy of right knee Hx of colonoscopy History of foot surgery History of tonsillectomy Family History Maternal Aunt Breast cancer Paternal Aunt Breast cancer Social History Are you a primary manager long term care to a significant other at home: No Do you presently have visiting nurse or other home services: No Alcohol intake: current Alcohol intake frequency: does not drink Comment: cramping Patient Tobacco Use Status: Never used Tobacco Current occupational status: employed 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 All questions answered, the patient verbalized understanding. Recommended to follow-up with [facility] for surgical consult regarding definitive surgical treatment of vaginal bleeding with myomas. Instructed the patient to call our office back in case a referral appointment is missed or canceled so that we will assist on rescheduling another appointment, the patient verbalized understanding agreed with the plan. Coding Level of Care Code Est Pt Level 3 (16718) Diagnoses Abnormal uterine bleeding (AUB) N93.9
[2024-02-22 14:58] VITALS: BMI 38.2
== END 2024-02-22 15:03 | disposition home or self-care (01) ==
LOC: HO.HWS 14:45
PROVIDERS: PCP Internal Medicine; Visit Provider Obstetrics & Gynecology
DX: N93.9 Abnormal uterine and vaginal bleeding, unspecified (principal)
CPT/HCPCS: 99213

== ENCOUNTER → 2024-02-22 14:45 | Outpatient (BNVA) | payer OTHER, SELFPAY | PROVIDERS: PCP Internal Medicine; Visit Provider Obstetrics & Gynecology ==

== ENCOUNTER 2024-02-24 07:23 | Day surgery (SDC) | payer OTHER, SELFPAY ==
[2024-02-22 11:01] VITALS: BMI 36.5
--- NOTE | 2024-02-22 12:25 | P.CONAN_ITS ---
Documented by User: Calli Deras NP 02/22/24 12:26 HPI - Anesthesia Eval Consult details Narrative: 54yo F for Left Knee Arthroscopy with partial medial meniscectomy and possible partial lateral meniscectomy PMFSH Active Problems Active Problems: All Active Problems Otalgia of right ear (Acute) Tear of medial meniscus of left knee (Acute) Postmenopausal bleeding (Acute) Pelvic pain (Acute) Arthritis of left knee (Acute) Arthritis of right knee (Acute) Left knee pain (Acute) Right knee pain (Acute) Well woman exam (Acute) Abnormal uterine bleeding (AUB) (Acute) Fibroid, uterine (Acute) Endometrial polyp (Acute) Heavy menstrual bleeding (Acute) Abnormal uterine bleeding (AUB) (Acute) Encounter for annual routine gynecological examination (Acute) Other specified personal risk factors, not elsewhere classified (Acute) Past Medical History Medical History IBS (irritable bowel syndrome) GERD (gastroesophageal reflux disease) Anxiety History of febrile seizure On beta jeremiah at home Cluster headaches Migraines HTN (hypertension) Family History Family History Maternal Aunt Breast cancer Paternal Aunt Breast cancer Family history of problems with anesthesia: No Surgical History Surgical History Hx of dilation and curettage Hx of arthroscopy of right knee Hx of colonoscopy History of foot surgery History of tonsillectomy History of Problems with Anesthesia: No Social History Social History Are you a primary direct support professional caregiver to a significant other at home: No Do you presently have visiting nurse or other home services: No Alcohol intake: current Alcohol intake frequency: holidays/special occasions only Comment: cramping Patient Tobacco Use Status: Never used Tobacco Use of substances other than those prescribed or required for medical reasons: No Are you DNR?: No Advance Directives: No Advance Directives Information Provided: Yes Recently lost weight without trying: No Current occupational status: employed 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 Meds Allergies Allergy/AdvReac Type Severity Reaction Status Date / Time metronidazole [From Flagyl] Allergy Unknown Verified 02/24/24 07:56 Home Medications ?Medication ?Instructions ?Recorded ?Confirmed ?Last Taken ?Type hydrochlorothiazide 25 mg tablet 25 mg PO DAILY 07/23/20 02/24/24 07/21/22 History metoprolol succinate 200 mg 200 mg PO DAILY 07/23/20 02/24/24 07/22/22 History tablet,extended release 24 hr omeprazole 20 mg capsule,delayed 20 mg PO DAILY 07/23/20 02/24/24 07/21/22 History release cholecalciferol (vitamin D3) 50 50 mcg PO DAILY 07/28/21 02/24/24 07/21/22 History mcg (2,000 unit) capsule escitalopram oxalate 20 mg tablet 20 mg PO DAILY 02/24/24 02/24/24 Unknown History Exam Height,Weight and Vital Signs: Height 5 ft 8 in Weight 108.862 kg Assessment and Plan Assessment Anesthesia Assessment: Chart Reviewed Final Anesthetic Review Family History of Problems with Anesthesia: No History of Problems with Anesthesia: No Documented by User: Shahida Lee MD 02/24/24 08:45 [facility] Past Medical History Medical History IBS (irritable bowel syndrome) GERD (gastroesophageal reflux disease) Anxiety History of febrile seizure On beta jeremiah at home Cluster headaches Migraines HTN (hypertension) Family History Family History Maternal Aunt Breast cancer Paternal Aunt Breast cancer Surgical History Surgical History Hx of dilation and curettage Hx of arthroscopy of right knee Hx of colonoscopy History of foot surgery History of tonsillectomy Social History Social History Are you a primary direct support professional caregiver to a significant other at home: No Do you presently have visiting nurse or other home services: No Alcohol intake: current Alcohol intake frequency: holidays/special occasions only Comment: cramping Patient Tobacco Use Status: Never used Tobacco Use of substances other than those prescribed or required for medical reasons: No Are you DNR?: No Advance Directives: No Advance Directives Information Provided: Yes Recently lost weight without trying: No Current occupational status: employed 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 Meds Allergies Allergy/AdvReac Type Severity Reaction Status Date / Time metronidazole [From Flagyl] Allergy Unknown Verified 02/24/24 07:56 Home Medications ?Medication ?Instructions ?Recorded ?Confirmed ?Last Taken ?Type hydrochlorothiazide 25 mg tablet 25 mg PO DAILY 07/23/20 02/24/24 07/21/22 History metoprolol succinate 200 mg 200 mg PO DAILY 07/23/20 02/24/24 07/22/22 History tablet,extended release 24 hr omeprazole 20 mg capsule,delayed 20 mg PO DAILY 07/23/20 02/24/24 07/21/22 History release cholecalciferol (vitamin D3) 50 50 mcg PO DAILY 07/28/21 02/24/24 07/21/22 History mcg (2,000 unit) capsule escitalopram oxalate 20 mg tablet 20 mg PO DAILY 02/24/24 02/24/24 Unknown History Exam Airway Mallampati Class: II TM Dist: >3cm Neck ROM: Full Loose/Missing/Broken Teeth: No Heart: RRR Lungs: CTA Assessment and Plan Assessment Anesthesia Assessment: Anesthesia Plan Discussed Final Anesthetic Review NPO: Yes ASA Class: II Final Preanesthetic Review: Meds/Allgs Chart Reviewed, Consent Obtained/Reviewed and Anes Risks/Benef Reviewed Patient Risk: Low Procedure Risk: Low Anesthetic Plan Anesthetic Plan: GA Disposition: Standard PACU
[2024-02-24] VITALS (8 sets, daily range): BP systolic 146–170; BP diastolic 70–104; PULSE 75–96; RESP 16–18; TEMP 37–37.2; O2SAT 98–100; BMI 38.1
[2024-02-24] MEDS: Lactated Ringers 1,000 ML 100 ML IVCONT (08:05)
--- NOTE | 2024-02-24 10:03 | PM.OP ---
Brief Operative Note Date of Service: 02/24/24 Pre-op diagnosis: Left knee medial meniscus tear, left knee lateral meniscus tear, left knee degenerative joint disease Post-op diagnosis: same Procedure: Left knee diagnostic arthroscopy with left knee arthroscopic partial medial meniscectomy, left knee arthroscopic partial lateral meniscectomy, left knee arthroscopic chondroplasty of the undersurface of the patella, trochlear groove, medial femoral condyle and lateral femoral condyle Implants: none Surgeon: Andres Culp MD Anesthesia: GLMA Was an Armhole Baster Jumpbasting used for this Procedure?: No Estimated blood loss (mL): 10 Pathology: none sent Condition: stable Disposition: PACU
--- NOTE | 2024-02-24 10:05 | P.OP_ITS ---
Operative Note Operative Note Date of Service: 02/24/24 Narrative: After the patient was identified as Radha Jeff and her left knee was initialed by myself they were brought to the operating room where general anesthesia was induced by the anesthesiologist in routine fashion. The patient was given 2 g of IV Ancef preoperatively for infection prophylaxis. The patient's left lower extremity was prepped and draped in sterile fashion. A formal time-out was completed. Marcaine was injected into the planned incision sites as well as the patient's left knee joint. A #11 scalpel blade was used to make an anterolateral portal 1 cm proximal to the joint line and 1 cm lateral to the pa tellar tendon. Blunt trocar technique was used to enter the suprapatellar pouch with the knee in extension. Diagnostic arthroscopy showed multiple bands of thickened plica which would be excised at the end of the procedure. There were no loose bodies or abnormalities found in either the medial or lateral gutters. The articular surface of the patella showed diffuse grade 2 degenerative changes. The trochlear groove articular surface showed diffuse grades 2 and 3 degenerative changes. The patient's knee was flexed to 45 degrees and a valgus force was placed upon it. The medial compartment was entered. An anteromedial portal was made 1 cm proximal to the joint line and 1 cm medial to the patellar tendon. Probing of the medial meniscus showed a radial tear of the posterior horn. A partial medial meniscectomy was performed using the arthroscopic shaver. Following the partial meniscectomy the remainder of the meniscus tissue was stable. There were diffuse grades 3 and 4 degenerative changes of the medial femoral condyle as well as grades 3 and 4 degenerative changes of the medial tibial plateau. The articular surface of the medial femoral condyle was then made smooth using the arthroscopic shaver. The articular surface of the medial tibial plateau was already smooth so no chondroplasty was indicated. The patient's knee was placed into a neutral position. There was no injury to the anterior cruciate ligament. The patient's knee was then placed in the figure of 4 position and the lateral compartment was entered. There was a radial tear of the anterior horn of the lateral meniscus. A partial lateral meniscectomy was performed using the arthroscopic shaver. Following the partial meniscectomy the remainder of the meniscus tissue was stable. There were diffuse grade 2 degenerative changes of the lateral femoral condyle as well as minimal degenerative changes of the lateral tibial plateau articular surface. The articular surface of the lateral femoral condyle was made smooth using the arthroscopic shaver. The patient's knee was once again brought into extension and the suprapatellar pouch was entered. The arthroscopic shaver and the ArthroCare Wand were used to excise the thickened bands of plica. The undersurface of the patella and the trochlear groove articular surface were made smooth using the arthroscopic shaver. The knee joint was irrigated and then drained. All arthroscopic instruments were removed. The 2 portals were closed with 3-0 nylon interrupted suture. The knee joint was injected with Marcaine. Dry sterile dressing and Alli bandages were placed over the patient's knee. The patient was awoken and extubated in the operating room. The patient was transferred to the recovery room in stable condition.
[2024-02-24] MEDS: fentaNYL citrate/PF 100 MCG/2 ML VIAL 25 MCG IVPUSH (10:14)
[2024-02-24] MEDS: cefTRIAXone sodium 1 GM VIAL IVPUSH (10:25)
== END 2024-02-24 11:14 | disposition home or self-care (01) ==
PROVIDERS: PCP Internal Medicine; Visit Provider Orthopaedic Surgery
PROC: (CPT 29870; principal; 2024-02-24 09:00)
DX: S83.282A Other tear of lateral meniscus, current injury, left knee, initial encounter (principal); S83.242A Other tear of medial meniscus, current injury, left knee, initial encounter; X58.XXXA Exposure to other specified factors, initial encounter; Y93.9 Activity, unspecified; Y92.9 Unspecified place or not applicable; Y99.8 Other external cause status; M23.52 Chronic instability of knee, left knee; M17.12 Unilateral primary osteoarthritis, left knee; M67.52 Plica syndrome, left knee; I10 Essential (primary) hypertension; G43.909 Migraine, unspecified, not intractable, without status migrainosus; F41.9 Anxiety disorder, unspecified; Z79.1 Long term (current) use of non-steroidal anti-inflammatories (NSAID); Z79.899 Other long term (current) drug therapy; Z88.8 Allergy status to other drugs, medicaments and biological substances; Z98.890 Other specified postprocedural states
CPT/HCPCS: 29880; 29876; J0131; J0171; J0690; J0696; J1100; J1885; J2003; J2405; J2704; J2795; J3010

== ENCOUNTER → 2024-02-24 07:23 | Outpatient (BNV) | payer OTHER, SELFPAY | PROVIDERS: PCP Internal Medicine; Visit Provider Orthopaedic Surgery | DX: S83.242A Other tear of medial meniscus, current injury, left knee, initial encounter (principal); S83.282A Other tear of lateral meniscus, current injury, left knee, initial encounter | CPT/HCPCS: 29880 ==

== ENCOUNTER 2024-03-08 10:46 | Outpatient (AMB) | payer OTHER, SELFPAY ==
[2024-03-08 10:51] VITALS: BMI 38.0
--- NOTE | 2024-03-08 10:51 | A.OFFVIS_ITS ---
Vital Signs 03/08/24 10:51 Height 5 ft 8 in Weight 250 lb BMI 38.0 Intake Visit Reasons: PO LT knee 02/24/24 DR Intake Note: Radha presents for her 1st postoperative visit after undergoing left knee arthroscopic surgery on 02/24/2024. She reports mild intermittent discomfort in her left knee. She denies any fevers or chills. She is no longer taking narcotics for discomfort. Allergies metronidazole [From Flagyl] Allergy (Verified 03/08/24 11:01) Unknown Medication List - Last Reconciled 03/08/24 by Andres Culp MD cholecalciferol (vitamin D3) 50 mcg PO DAILY escitalopram oxalate 20 mg PO DAILY hydrochlorothiazide 25 mg PO DAILY ibuprofen 800 mg PO Q8H PRN medroxyprogesterone (Provera) 10 mg PO DAILY 90 days metoprolol succinate ER 200 mg PO DAILY omeprazole 20 mg PO DAILY PFSH Medical History IBS (irritable bowel syndrome) GERD (gastroesophageal reflux disease) Anxiety History of febrile seizure On beta jeremiah at home Cluster headaches Migraines HTN (hypertension) Surgical History Hx of dilation and curettage Hx of arthroscopy of right knee Hx of colonoscopy History of foot surgery History of tonsillectomy Family History Maternal Aunt Breast cancer Paternal Aunt Breast cancer Social History Are you a primary post anesthesia care unit nurse to a significant other at home: No Do you presently have visiting nurse or other home services: No Alcohol intake: current Alcohol intake frequency: holidays/special occasions only Comment: cramping Patient Tobacco Use Status: Never used Tobacco Current occupational status: employed 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 Her sutures were removed and Steri-Strips placed over her incisions. She will gradually progress to activities as tolerated. I have cleared her to return to work in 1 week's time. She will contact me prior to her follow-up appointment in 4-6 weeks should any questions or concerns arise. Feel free to call me at any time should questions regarding her orthopedic management arise. Coding Level of Care Code Global (46973) Diagnoses Left knee pain M25.562
== END 2024-03-08 11:13 | disposition home or self-care (01) ==
LOC: HO.HOS 10:47
PROVIDERS: PCP Internal Medicine; Visit Provider Orthopaedic Surgery
DX: M25.562 Pain in left knee (principal)
CPT/HCPCS: 99024

== ENCOUNTER → 2024-03-08 10:46 | Outpatient (BNVA) | payer OTHER, SELFPAY | PROVIDERS: PCP Internal Medicine; Visit Provider Orthopaedic Surgery ==

== ENCOUNTER 2024-04-19 10:41 | Outpatient (AMB) | payer OTHER, SELFPAY ==
--- NOTE | 2024-04-19 10:53 | MHC.OFFVIS ---
Vital Signs 04/19/24 10:54 Height 5 ft 8 in Weight 250 lb BMI 38.0 Intake Visit Reasons: Bilateral knee pains Intake Note: Radha is a 54 year old female who presents with complaints of bilateral knee pains. She describes her pains as sharp in nature. She did undergo left knee arthroscopic surgery earlier this year. She got only temporary relief from that procedure. She has tried Tylenol and anti-inflammatory medicines which gave her minimal relief. She has failed the last 3 months of conservative treatment which has consisted of physical therapy exercises, Tylenol, anti-inflammatory medicines and topical creams. She has had cortisone injections given into both of her knees. The most recent set of injections gave her minimal relief. At this point her bilateral knee pains are interfering with her activities of daily living and her ability to sleep well through the night. She wishes to hold off on total knee replacement surgery for as long as possible. Allergies metronidazole [From Flagyl] Allergy (Verified 04/19/24 10:54) Unknown Medication List - Last Reconciled 04/20/24 by Andres Culp MD [id number] 50-300-40 mg 1 cap PO DAILY celecoxib (Celebrex) 200 mg PO DAILY PRN cholecalciferol (vitamin D3) 50 mcg PO DAILY escitalopram oxalate 20 mg PO DAILY hydrochlorothiazide 25 mg PO DAILY ibuprofen 800 mg PO Q8H PRN medroxyprogesterone (Provera) 10 mg PO DAILY 90 days metoprolol succinate ER 200 mg PO DAILY omeprazole 20 mg PO DAILY PFSH Medical History IBS (irritable bowel syndrome) GERD (gastroesophageal reflux disease) Anxiety History of febrile seizure On beta jeremiah at home Cluster headaches Migraines HTN (hypertension) Surgical History Hx of dilation and curettage Hx of arthroscopy of right knee Hx of colonoscopy History of foot surgery History of tonsillectomy Family History Maternal Aunt Breast cancer Paternal Aunt Breast cancer Social History Are you a primary floor care specialist to a significant other at home: No Do you presently have visiting nurse or other home services: No Alcohol intake: current Alcohol intake frequency: holidays/special occasions only Comment: cramping Patient Tobacco Use Status: Never used Tobacco Current occupational status: employed 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 identity: Female Physical Exam Vital Signs: BMI result Body Mass Index 38.0 Const Other: Well-nourished well-developed very friendly female awake alert and oriented x3 in no acute distress Extrem Other: Bilateral lower extremity examination shows good capillary refill, no skin lesions noted, normal sensation light touch Bilateral knee examination shows minimal effusions, palpable crepitus with range of motion, pain with range of motion, range of motion from -3 degrees to 115 degrees, no instability Results Reviewed Results Reviewed: X-rays of the patient's bilateral knees taken previously show joint space narrowing, subchondral sclerosis, no acute bony abnormalities Assessment & Plan Assessment & Plan (1) Osteoarthritis of left knee: Code(s): M17.12 - Unilateral primary osteoarthritis, left knee Category: Medical (2) Osteoarthritis of right knee: Code(s): M17.11 - Unilateral primary osteoarthritis, right knee Category: Medical Plan Ms. Jeff presents with bilateral knee pains due to osteoarthritis. I had a lengthy discussion with the patient regarding the treatment options. She wishes to hold off on total knee replacement surgery for as long as possible. I agree with this plan. She has not gotten good relief from cortisone injections in the past. Thus, I will see whether or not the patient's insurance company will cover a viscosupplementation injection for both of her knees. I will see her back once the injections are available. Feel free to call me at any time should questions regarding her orthopedic management arise. I spent 22 minutes in reviewing the patient's records and imaging studies, seeing the patient and documenting in the medical record. Coding Level of Care Code Est Pt Level 3 (34663) Complex EM visit Add On G2211 Diagnoses Osteoarthritis of left knee M17.12 Osteoarthritis of right knee M17.11
[2024-04-19 10:54] VITALS: BMI 38.0
== END 2024-04-19 11:25 | disposition home or self-care (01) ==
PROVIDERS: PCP Internal Medicine; Visit Provider Orthopaedic Surgery
DX: M17.0 Bilateral primary osteoarthritis of knee (principal)
CPT/HCPCS: 99213

== ENCOUNTER 2024-05-29 13:28 | Outpatient (AMB) | payer OTHER, SELFPAY ==
--- NOTE | 2024-05-29 13:30 | MHC.OFFVIS ---
Vital Signs 05/29/24 13:32 Height 5 ft 8 in Weight 250 lb BMI 38.0 Intake Visit Reasons: bilateral knee pains Intake Note: Radha is a 54 year old female who presents with complaints of progressively worsening bilateral knee pains. She has had cortisone injections in the past which gave her minimal relief. She has also had viscosupplementation injections which gave her good relief. She has tried Celebrex and Tylenol which gave her minimal relief. She has also done physical therapy exercises which aggravated her pain. She wishes to hold off on total knee replacement surgery for as long as possible. Allergies metronidazole [From Flagyl] Allergy (Verified 05/29/24 13:33) Unknown Medication List - Last Reconciled 05/29/24 by Andres Culp MD [id number] 50-300-40 mg 1 cap PO DAILY celecoxib (Celebrex) 200 mg PO DAILY PRN cholecalciferol (vitamin D3) 50 mcg PO DAILY escitalopram oxalate 20 mg PO DAILY hydrochlorothiazide 25 mg PO DAILY ibuprofen 800 mg PO Q8H PRN medroxyprogesterone (Provera) 10 mg PO DAILY 90 days metoprolol succinate ER 200 mg PO DAILY omeprazole 20 mg PO DAILY PFSH Medical History IBS (irritable bowel syndrome) GERD (gastroesophageal reflux disease) Anxiety History of febrile seizure On beta jeremiah at home Cluster headaches Migraines HTN (hypertension) Surgical History Hx of dilation and curettage Hx of arthroscopy of right knee Hx of colonoscopy History of foot surgery History of tonsillectomy Family History Maternal Aunt Breast cancer Paternal Aunt Breast cancer Social History Are you a primary intensive care medicine specialist to a significant other at home: No Do you presently have visiting nurse or other home services: No Alcohol intake: current Alcohol intake frequency: holidays/special occasions only Comment: cramping Patient Tobacco Use Status: Never used Tobacco Current occupational status: employed 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 identity: Female Physical Exam Vital Signs: BMI result Body Mass Index 38.0 Const Other: Well-nourished well-developed very friendly female awake alert and oriented x3 in no acute distress Extrem Other: Bilateral lower extremity examination shows good capillary refill, no skin lesions noted, normal sensation light touch Bilateral knee examination shows minimal effusions, palpable crepitus with range of motion, pain with range of motion, no instability Office Procedures AMB Joint Injection/Aspiration Joint Injection/Aspiration Primary Site: right knee Prep: site was prepped using aseptic technique Injected: 60 mg of (Durolane viscosupplementation) and 1% plain lidocaine Procedure: The patient tolerated the procedure well Coding 92553 - Large joint Procedure code (CPT) selection complete AMB Joint Injection/Aspiration Joint Injection/Aspiration Primary Site: left knee Prep: site was prepped using aseptic technique Injected: 60 mg of (Durolane viscosupplementation) and 1% plain lidocaine Procedure: The patient tolerated the procedure well Coding 45585 - Large joint Procedure code (CPT) selection complete Results Reviewed Results Reviewed: X-rays of the patient's bilateral knees taken previously show joint space narrowing, subchondral sclerosis, no acute bony abnormalities Assessment & Plan Assessment & Plan (1) Osteoarthritis of left knee: Code(s): M17.12 - Unilateral primary osteoarthritis, left knee Category: Medical (2) Osteoarthritis of right knee: Code(s): M17.11 - Unilateral primary osteoarthritis, right knee Category: Medical Plan Ms. Jeff presents with bilateral knee pains due to osteoarthritis. The risks and benefits of bilateral knee Durolane viscosupplementation injections were discussed at length with the patient. The patient wished to proceed. She tolerated the injections well. She will continue with her home exercise program. She will contact me prior to her follow-up appointment in 3 months should any questions or concerns arise. Feel free to call me at any time should questions regarding her orthopedic management arise. I spent 22 minutes in reviewing the patient's records and imaging studies, seeing the patient and documenting in the medical record. Orders: Orders AMB Joint Injection/Aspiration 05/29/24 M17.11 - Unilateral primary osteoarthritis, right knee AMB Joint Injection/Aspiration 05/29/24 M17.12 - Unilateral primary osteoarthritis, left knee Coding Level of Care Code Est Pt Level 3 (78892) Complex EM visit Add On G2211 Diagnoses Osteoarthritis of left knee M17.12 Osteoarthritis of right knee M17.11 CPT Codes Coding - 98782 Large joint: 38816 - Large joint ([id number]) Coding - 11939 Large joint: 17039 - Large joint ([id number])
[2024-05-29 13:32] VITALS: BMI 38.0
== END 2024-05-29 13:57 | disposition home or self-care (01) ==
PROVIDERS: PCP Internal Medicine; Visit Provider Orthopaedic Surgery
DX: M17.0 Bilateral primary osteoarthritis of knee (principal)
CPT/HCPCS: 20610; 99213

== ENCOUNTER → 2024-05-29 13:28 | Outpatient (BNVA) | payer OTHER, SELFPAY | PROVIDERS: PCP Internal Medicine; Visit Provider Orthopaedic Surgery | DX: M17.0 Bilateral primary osteoarthritis of knee (principal) | CPT/HCPCS: 20610; J2003; J7318 ==

== ENCOUNTER 2024-08-29 14:21 | Outpatient (AMB) | payer OTHER, SELFPAY ==
--- NOTE | 2024-08-29 14:25 | MHC.OFFVIS ---
Vital Signs 08/29/24 14:28 Height 5 ft 8 in Weight 250 lb BMI 38.0 Intake Visit Reasons: Bilateral knee pains Intake Note: Radha is a 54 year old female who presents today for a follow up of bilateral knee OA s/p Durolane injections on 05/29/24. Patient reports Durolane injection did not really help, states very little relief if any. She has had cortisone injections in the past which gave her fairly good relief. She has tried Tylenol and anti-inflammatory medicines which gave her minimal relief. She wishes to hold off on total knee replacement surgery for as long as possible. Allergies metronidazole [From Flagyl] Allergy (Verified 08/29/24 14:28) Unknown Medication List - Last Reconciled 08/29/24 by Andres Culp MD [id number] 50-300-40 mg 1 cap PO DAILY celecoxib (Celebrex) 200 mg PO DAILY PRN cholecalciferol (vitamin D3) 50 mcg PO DAILY escitalopram oxalate 20 mg PO DAILY hydrochlorothiazide 25 mg PO DAILY metoprolol succinate ER 200 mg PO DAILY omeprazole 20 mg PO DAILY PFS Medical History IBS (irritable bowel syndrome) GERD (gastroesophageal reflux disease) Anxiety History of febrile seizure On beta jeremiah at home Cluster headaches Migraines HTN (hypertension) Surgical History Hx of dilation and curettage Hx of arthroscopy of right knee Hx of colonoscopy History of foot surgery History of tonsillectomy Family History Maternal Aunt Breast cancer Paternal Aunt Breast cancer Social History Are you a primary home health care provider to a significant other at home: No Do you presently have visiting nurse or other home services: No Alcohol intake: current Alcohol intake frequency: holidays/special occasions only Comment: cramping Patient Tobacco Use Status: Never used Tobacco Current occupational status: employed 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 Physical Exam Vital Signs: BMI result Body Mass Index 38.0 Const Other: Well-nourished well-developed very friendly female awake alert and oriented x3 in no acute distress Extrem Other: Bilateral lower extremity examination shows good capillary refill, no skin lesions noted, normal sensation light touch Bilateral knee examination shows minimal effusions, palpable crepitus with range of motion, pain with range of motion, no instability Office Procedures AMB Joint Injection/Aspiration Joint Injection/Aspiration Primary Site: left knee Prep: site was prepped using aseptic technique Injected: 40 mg of, DepoMedrol and 1% plain lidocaine Procedure: The patient tolerated the procedure well Coding 07855 - Large joint Procedure code (CPT) selection complete AMB Joint Injection/Aspiration Joint Injection/Aspiration Primary Site: right knee Prep: site was prepped using aseptic technique Injected: 40 mg of, DepoMedrol and 1% plain lidocaine Procedure: The patient tolerated the procedure well Coding - Large joint Procedure code (CPT) selection complete Results Reviewed Results Reviewed: X-rays of the patient's bilateral knees taken previously show joint space narrowing, subchondral sclerosis, no acute bony abnormalities Assessment & Plan Assessment & Plan (1) Osteoarthritis of left knee: Code(s): M17.12 - Unilateral primary osteoarthritis, left knee Category: Medical (2) Osteoarthritis of right knee: Code(s): M17.11 - Unilateral primary osteoarthritis, right knee Category: Medical Plan Ms. Jeff presents with bilateral knee pains due to osteoarthritis. The risks and benefits of bilateral knee cortisone injections were discussed at length with the patient. The patient wished to proceed. She tolerated the injections well. She will continue with her home exercise program. She will contact me prior to her follow-up appointment in 3 months should any questions or concerns arise. Feel free to call me at any time should questions regarding her orthopedic management arise. I spent 22 minutes in reviewing the patient's records and imaging studies, seeing the patient and documenting in the medical record. Orders: Orders AMB Joint Injection/Aspiration Today M17.12 - Unilateral primary osteoarthritis, left knee AMB Joint Injection/Aspiration Today M17.11 - Unilateral primary osteoarthritis, right knee Medications: New gabapentin 100 mg PO BEDTIME 30 caps 0RF Coding Level of Care Code Est Pt Level 3 (38571) Complex EM visit Add On G2211 Diagnoses Osteoarthritis of left knee M17.12 Osteoarthritis of right knee M17.11 CPT Codes Coding - 01715 Large joint: 89638 - Large joint ([id number]) Coding - Large joint: - Large joint ([id number])
[2024-08-29 14:28] VITALS: BMI 38.0
--- OUTSIDE RECORDS SUMMARY | 2024-08-29 17:15 | XMS_ITS | Clinical Summary ---
Author Organization [facility] Address [address] [id number] Care Team Providers Care Head Shipper Name Role Phone Israel Neal MD Primary Care Provider Unavail able Allergies No known active allergies Medications Medication Sig Dispensed Refills Start Date End Date Status hydroCHLOROthiazide (HYDRODIURIL) tablet 25 mg Take 25 mg by mouth daily. 3 07/18/2018 Active metoprolol succinate (TOPROL-XL) 24 hr tablet 200 mg Take 200 mg by mouth. 0 Active omeprazole (PriLOSEC) 20 MG capsule TAKE ONE CAPSULE BY MOUTH EVERY DAY BEFORE A MEAL 1 06/07/2018 Active cholecalciferol (VITAMIN D3) 400 units tablet Take 400 Units by mouth daily. 0 Active Active Problems Problem Noted Date Diagnosed Date Acute medial meniscus tear of left knee 09/07/19 19 Arthritis of knee, left 09/06/2018 Family History Medical History Relation Name Comments Heart disease Father Hyperlipidemia Father Hypertension Father Hypertension Mother Relation Name Status Comments Father Mother Social History Tobacco Use Types Packs/Day Years Used Date Smoking Tobacco: Never Smokeless Tobacco: Never Alcohol Use Standard Drinks/Week Comments Yes 1 (1 standard drink = 0.6 oz pur e alcohol) Sex and Gender Information Value Date Recorded Sex Assigned at Not on file Gender Identity Not on file Sexual Orientation Not on file Last Filed Vital Signs Vital Sign Reading Time Taken Comments Blood Pressure - - Pulse - - Temperature - - Respiratory Rate - - Oxygen Saturation - - Inhaled Oxygen Concentration - - Weight 89.4 kg (197 lb) 09/06/2018 1:22 PM EDT Height 172.7 cm (5' 8 ) 09/06/2018 1:22 PM EDT Body Mass Index 29.95 09/06/2018 1:22 PM EDT Plan of Treatment Health Maintenance Due Date Last Done Comments Hepatitis B Vaccines (1 of 3 - 3-dose series) 1970 Hepatitis C Screening 1970 COVID-19 Vaccine (#1) 1970 Depression Screening 1982 Preventative Health Evaluation 01/07/1988 DTap / Tdap / Td (1 - Tdap) 1989 Cervical Cancer Screening (P ap Smear) 1991 Colon Cancer Screening (Colonoscopy) 2015 Breast Cancer Screening (Mammogram) 01/07/2020 Shingrix-Zoster Vaccine (1 of 2) 01/07/2020 Influenza Vaccine (#1) 2024 Pneumococcal Vaccine Aged Out No long er eligible based on patient's age to complete this topic RSV Ped < 20 months Aged Out No longe r eligible based on patient's age to complete this topic Care Teams Head Shipper Relationship Specialty Start Date End Date Israel Neal MD PCP - General Internal Medicine 09/06/18
--- OUTSIDE RECORDS SUMMARY | 2024-08-29 17:15 | XMS_ITS | Clinical Summary ---
Author Organization [facility] Address [address] [place] [address] Care Team Providers Care Television News Reporter Name Role Phone Israel Neal MD Primary Care Provider [phone] Surgical History Surgery Date Site/Laterality Comments TONSILLECTOMY PROCEDURE: HISTORICAL TONSILLECTOMY BUNIONECTOMY PROCEDURE: BUNION SURGERY, SIMPLE REMOVAL BACK SURGERY PROCEDURE: HISTORICAL BACK SURGERY; COMMENT: cyst removal TONSILLECTOMY PROCEDURE:TONSILLECTOMY BUNIONECTOMY PROCEDURE:BUNIONECTOMY Medical History Medical History Date Comments Anxiety 04/26/2018 DX:Anxiety HTN (hypertension) 04/26/2018 DX:HTN (hyper tension) Tachycardia 04/26/2018 DX:Tachycardia High blood pressure DX:High bloo d pressure Family History Medical History Relation Name Comments Heart disease Father Hyperlipidemia Father Hypertension Father Hypertension Mother Breast cancer Other mat and pat aunt 40-60yo Colon cancer Neg Hx Ovarian cancer Neg Hx Relation Name Status Comments Father Mother Other mat and pat aunt Social History Tobacco Use Types Packs/Day Years Used Date Smoking Tobacco: Never Smokeless Tobacco: Never Alcohol Use Standard Drinks/Week Comments Yes 1 (1 standard drink = 0.6 oz pur e alcohol) Comments Unknown Sex and Gender Information Value Date Recorded Sex Assigned at Not on file Legal Sex Female 9:09 PM EST Gender Identity Not on file Sexual Orientation Not on file Obstetrics History Plan of Treatment Health Maintenance Due Date Last Done Comments DTaP,Tdap,and Td Vaccines (1 - Tdap) 1989 Hepatitis B Vaccines (1 of 3 - 19+ 3-dose series) 1989 Breast Cancer Screening 12/10/2019 12/10/19 18, 12/01/2017 Pneumococcal Vaccine: 50+ Years (1 of 1 - PCV) 01/07/2020 Zoster Vaccines (1 of 2) 01/07/2020 Cervical Cancer Screening: P ap Smear 04/26/2021 04/26/2018 COVID-19 Vaccine (2023-2 5 season) 2024 Influenza Vaccine (Season Ended) 2025 HIB Vaccines Aged Out No longer eligi ble based on patient's age to complete this topic HPV Vaccines Aged Out No longer eligi ble based on patient's age to complete this topic Hepatitis A Vaccines Aged Out No long er eligible based on patient's age to complete this topic IPV Vaccines Aged Out No longer eligi ble based on patient's age to complete this topic MMR Vaccines Aged Out No longer eligi ble based on patient's age to complete this topic Meningococcal ACWY Vaccine Aged Out N o longer eligible based on patient's age to complete this topic Meningococcal B Vaccine Aged Out No l onger eligible based on patient's age to complete this topic Pneumococcal Vaccine: Pediatrics (0 to 5 Years) and At-Risk Patients (6 to 64 Years) Aged Out No longer eligible b ased on patient's age to complete this topic RSV Immunization Patients Under 20 months Aged Out No longer eligible b ased on patient's age to complete this topic Varicella Vaccines Aged Out No longer eligible based on patient's age to complete this topic Procedures Procedure Name Priority Date/Time Associated Diagnosis Comments PAP SMEAR Routine 04/26/2018 DX MAMMO INCL CAD UNI Routine 12/09/2017 1:24 PM EDT Other abnormal and inconclusive findings on diagnostic imaging of breast from Last 3 Months or Most Recently Relevant to Health Maintenance Results * Pap smear (04/26/2018) 04/26/2018 Narrative HISTORICAL TESTING LAB RESULTING AGENCY - 05/04/2018 5:16 PM EST [id number] THINPREP PAP, IMAGED AND CELL BLOCK: UNSATISFACTORY SPECIMEN FOR MORPHOLOGIC EVALUATION DUE TO INSUFFICIENT SQUAMOUS CELLULARITY. ABUNDANT OBSCURING RED BLOOD CELLS ARE PRESENT. NOTE : DUE TO THE LIMITED SQUAMOUS CELLULARITY, THE NEGATIVE HPV TEST MAY REPRESENT A FALSE NEGATIVE RESULT. BRYANT COURTNEY , CT(ASCP) (CASE SCREENED 05 01 2018) MILLIE MURRAY M.D. , PATHOLOGIST (CASE ELECTRONICALLY SIGNED 05 03 2018) RESULT OF APTIMA HIGH RISK HPV ASSAY: HIGH RISK HPV: ??NEGATIVE (SEROTYPES 16,18,31,33,35,39,45,51,52,56,58,59,66,68) COMPLETED ON 2018-04-28 ADEQUACY: UNSATISFACTORY ENDOCERVICAL/TRANSFORMATION ZONE COMPONENT PRESENT. SOURCE: THINPREP PAP HPV ANY DX: ??REFLEX 16 AND 18, CERVICAL, IMAGED CLINICAL INFORMATION: HPV ANY DIAGNOSIS. Z12.4, Z01.419, PAP HX: NEGATIVE CB 04/28/18 us Zakiya Herron MD LAB CYTOLOGY ORDERABLES Final Result HISTORICAL TESTING LAB RESULTING AGENCY * DX MAMMO INCL CAD UNI (12/09/2017 1:24 PM EDT) Anatomical Region Laterality Modality Mammography 12/05/2017 10:2 8 AM EDT Narrative 12/09/2017 1:36 PM EDT This is a summary report. The complete report is available in the patient's medical record. If you cannot access the medical record, please contact the sending organization for a detailed fax or copy. Additional mammographic views left breast: History: Focal asymmetry on 12/01/2017 screening left mammogram. Focal asymmetry noted in the posterior lateral left breast on 12/01/2017 craniocaudad view resolves with spot compression and is considered to have represented normal glandular breast tissue. Impression: Negative mammogram. Annual screening mammography is been scheduled. BI-RADS 1-negative Procedure Note Triston Rae MD - 04/27/2022 This is a summary report. The complete report is available in thepatient's medical record. If you cannot access the medical record, pleasecontact the sending organization for a detailed fax or copy. Additional mammographic views left breast: History: Focal asymmetry on 12/01/2017 screening left mammogram. Focal asymmetry noted in the posterior lateral left breast on 12/01/2017craniocaudad view resolves with spot compression and is considered to haverepresented normal glandular breast tissue. Impression: Negative mammogram. Annual screening mammography is beenscheduled. BI-RADS 1-negative Israel Neal MD IMG BI PROCEDURES Final Result from Last 3 Months or Most Recently Relevant to Health Maintenance Care Teams Television News Reporter Relationship Specialty Start Date End Date Israel Neal MD PCP - General Internal Medicine 03/20/12
--- OUTSIDE RECORDS SUMMARY | 2024-08-29 17:15 | XMS_ITS | Patient Health Record ---
[facility] Address [address] [facility] [place] [address] Care Team Providers Care Housing Management Representative Name Role Phone Israel Neal MD Primary Care Provider UnavailFifi Marquis Unavailable [phone] Allergies Allergen (clinical drug ingredient) Drug/Non Drug Allergy documented on EMR Reaction Allergy Type Onset Date Status metronidazole Flagyl nausea Drug Allergy Act eliezer Reason For Referral No Information Medications Medication SIG (Take, Route, Frequency, Duration) Notes Start Date End Date Status Vitamin D Active Citalopram Hydrobromide 20 MG 1 tablet Orally Once a day for 30 day(s) Active Work Note . . . Patient still recovering from foot surgery-tenative return to work on October 11 2022 09/06/2022 Active hydroCHLOROthiazide 25 MG 1 tablet in th e morning Orally Once a day for 30 day(s) Active Multivitamins Not-Ta cristopher Omeprazole 20 MG 1 capsule 30 minutes before morning meal Orally Once a day for 30 day(s) Active Toprol XL Not-Taking Metoprolol Succinate 200 MG 1 capsule Or ally Once a day for 30 day(s) Active Ultram 50 MG 1 tablet as needed for pain Orally every 6 hrs for as needed 03/27/2015 Not-Taking Walking Boot/Pneumatic As directed Wear Daily for Until further notice 08/04/2022 Active Work Note . . . Extending time off work due to continued healing from foot surgery, new return to work date tenative for 09/20/22 08/17/2022 Active Physical Therapy . . . 2-3x/week for 3-4 weeks 08/25/2022 Active Work Note . . . Patient can return to full duty with no limitations on 10/11/2022 10/06/2022 Active Gabapentin 300 MG 1 capsule Orally every 8 hours for 14 days 07/23/2022 Active Percocet 5-325 MG 1-2 tablet as needed Orally every 4-6 hrs as needed for pain for 5 days 07/21/2022 Not-Taking Ibuprofen 800 MG 1 tablet Orally Three times a day for 14 days 07/19/2022 Not-Taking Immunizations Vaccine Route Administration Date Status Comme nts COVID-19 Pfizer BioNTech Vaccine Unknown 02/10/2022 Administered 05/07/2020,05/29/2020 05/11/2021 Social History Tobacco Use: Social History Observation Description Date Details (start date - stop date) Never Smoker NA - NA Tobacco Use/Smoking Question Answer Notes Are you a: nonsmoker Alcohol Screen Question Answer Notes Did you have a drink contain ing alcohol in the past year? Yes How often did you have a dri nk containing alcohol in the past year? Monthly or less (1 point) Points 1 Interpretation Negative Tobacco use other than smoking: Question Answer Notes Are you an other tobacco user? No Problems Problem Type SNOMED Code ICD Code Onset Dates Problem Status W/U Status Risk Notes Problem 437571560236632 Contracture, left foot (M24.575) Active confirmed Problem 188005504149318 Hallux valgus (acquired), left foot (M20.12) Active confirmed Problem [id number] Hammer toe of left foot (M20.42) Active confirmed Plan Of Treatment Pending Test Test Name Order Date X ray : Foot, left 3V 12/01/2021 X ray : Foot, left 3V 07/16/2022 X ray : Foot, left 3V 07/28/2022 X ray : Foot, left 3V 08/04/2022 X ray : Foot, left 3V 08/17/2022 X ray : Foot, left 3V 08/25/2022 X ray : Foot, left 3V 09/14/2022 X ray : Foot, left 3V 03/27/2015 X ray : Foot, right 3V 02/06/2013, B4175-WCFIS/INJECT, JOINT/BURSA 1 06/18/2012, X9945-GPJYX/INJECT, JOINT/BURSA 0 10/25/2013, T8174-YSBVJ/INJECT, JOINT/BURSA 1 06/30/201496287, T6903-GCHMR/INJECT, JOINT/BURSA 0 05/16/201506033, K2762-BFMSZ/INJECT, JOINT/BURSA 1 67877, J0702- Neuroma/Injection 02/27/20 14 Insurance Providers Payer Name Payer Address Payer Phone Subscriber Number Group Number Insured Name Patient Relationship to Insured Coverage Start Date Coverage End Date [employer] Benefits [address] [address] [place] [address] [id number] Radha Jeff Self - patient is the insured Medical (General) History Medical History History ICD Code anxiety high blood pressure chicken pox Headaches/Migraines Joint implants/screws Surgical History Surgery Date(Month/Year) bunionectomy, left foot 02/1988 torn miniskus 04/2014 bunionectomy, right foot 2017 tonsillectomy 1975 Meniscus repair, right knee 2015 Fernando Man 2nd, Tenotomy/Capsulot isabel Left 07/22/2022 Hospitalization History Reason Date(Month/Year) [facility] for a 3 day stay, f or chest pain 04/2013
--- OUTSIDE RECORDS SUMMARY | 2024-08-29 17:15 | XMS_ITS | Clinical Summary ---
Author Organization [facility] Address [address] [place] [address] Care Team Providers Care Senior Quality Engineer Name Role Phone Israel Neal MD Primary Care Provider Dez haas Allergies No known active allergies Medications Medication Sig Dispensed Refills Start Date End Date Status metoprolol (TOPROL-XL) 200 MG 24 hr tablet Take 200 mg by mouth daily. 0 Active hydrochlorothiazide (HYDRODIURIL) 25 MG tablet Take 25 mg by mouth daily. 0 Active Active Problems Problem Noted Date Unsatisfactory cervical Papanicolaou sme ar 05/05/2018 HTN (hypertension) 04/26/2018 Tachycardia 04/26/2018 Anxiety 04/26/2018 Vitamin D deficiency 04/26/2018 Family History Medical History Relation Name Comments CA Breast Other mat and pat aunt 40-60yo CA Colon Negative Hx CA Ovarian Negative Hx Relation Name Status Comments Other mat and pat aunt Social History Tobacco Use Types Packs/Day Years Used Date Smoking Tobacco: Never Smokeless Tobacco: Never Alcohol Use Standard Drinks/Week Comments Yes 0 (1 standard drink = 0.6 oz pur e alcohol) occ Sex Assigned at Date Recorded Not on file Last Filed Vital Signs Vital Sign Reading Time Taken Comments Blood Pressure 122/84 04/26/2018 1:36 PM EST Pulse 72 04/26/2018 1:36 PM EST Temperature - - Respiratory Rate 16 04/26/2018 1:36 PM EST Oxygen Saturation - - Inhaled Oxygen Concentration - - Weight 98.4 kg (217 lb) 04/26/2018 1:36 PM EST Height 172.7 cm (5' 8 ) 04/26/2018 1:36 PM EST Body Mass Index 32.99 04/26/2018 1:36 PM EST Plan of Treatment Health Maintenance Due Date Last Done Comments Covid-19 Vaccine (#1) 1970 DTAP/TDAP/TD (1 - Tdap) 1989 CHOLESTEROL SCREENING 1990 BASELINE HEALTH EXAM 40-64 2010 MAMMOGRAM 12/09/2018 12/09/2017, 0710/2017, 10/29/2015, Additional history exists COLON CANCER SCREENING 01/07/2020 SHINGLES VACCINE (1 of 2) 01/07/2020 CERVICAL CANCER SCREENING 04/26/2021 04/26/2018 BMI CHECK/ADVISE 05/09/2024 04/26/2018, 04/26/2018 INFLUENZA (Season Ended) 2025 PNEUMOCOCCAL VACCINE FOR HIG H RISK PATIENTS (#1) 2035 Care Teams Senior Quality Engineer Relationship Specialty Start Date End Date Israel Neal MD PCP - General Internal Medicine 11/15/17
== END 2024-08-29 15:16 | disposition home or self-care (01) ==
LOC: HO.HOS 14:21
PROVIDERS: PCP Internal Medicine; Visit Provider Orthopaedic Surgery
DX: M17.0 Bilateral primary osteoarthritis of knee (principal)
CPT/HCPCS: 20610; 99213

== ENCOUNTER → 2024-08-29 14:21 | Outpatient (BNVA) | payer OTHER, SELFPAY | PROVIDERS: PCP Internal Medicine; Visit Provider Orthopaedic Surgery | DX: M17.0 Bilateral primary osteoarthritis of knee (principal) | CPT/HCPCS: 20610; J1010; J2003 ==

== ENCOUNTER 2024-10-31 07:11 | Outpatient (REF) | payer OTHER, SELFPAY ==
[2024-10-31 07:23] LABS: MANUAL DIFF FLAG NO
[2024-10-31 08:12] LABS: Basophils Absolute Auto 0.1 X10*3/uL (0.0-0.2); Basophils Percent Auto 0.9 % (0-2); Eosinophils Absolute Auto 0.2 X10*3/uL (0.0-0.4); Eosinophils Percent Auto 2.2 % (0-4); Hematocrit 41.4 % (37.0-47.0); Hemoglobin 13.4 g/dl (12.0-16.0); Imm Gran Abs Auto 0.03 X10*3/uL (0.00-0.03); Imm Gran Pct Auto 0.3 % (0.0-0.4); Lymphocytes Absolute Auto 2.4 X10*3/uL (1.2-4.9); Lymphocytes Percent Auto 27.5 % (20-40); Mean Corpuscular HGB Conc 32.4 g/dl (31.0-35.0); Mean Corpuscular Hemoglobin 27.3 pg (27.0-33.0); Mean Corpuscular Volume 84.3 fL (80.0-98.0); Mean Platelet Volume 9.4 fL (9.4-12.3); Monocytes Absolute Auto 0.9 X10*3/uL (0.1-1.2); Monocytes Percent Auto 10.4 % (2-11); Neutrophils Absolute Auto 5.2 x10*3/uL (2.0-8.3); Neutrophils Percent Auto 58.7 % (45-73); Platelet Count 345 X10*3/uL (160-400); Red Blood Count 4.91 X10*6/uL (4.20-5.50); Red Cell Distribution Width 14.5 % (11.0-16.0); White Blood Count 8.8 X10*3/uL (4.8-10.8)
[2024-10-31 08:24] LABS: Estimated Average Glucose 103 mg/dL; Hemoglobin A1c % 5.2 % (<6.0)
[2024-10-31 08:38] LABS: Alanine Aminotransferase 35 U/L (0-31); Albumin Level 4.8 g/dL (3.5-5.0); Alkaline Phosphatase 102 U/L (39-117); Anion Gap 15 (12-20); Aspartate Amino Transferase 33 U/L (5-31); Bilirubin Total 0.4 mg/dL (0.0-1.0); Blood Urea Nitrogen 26 mg/dL (9-16); Calcium 10.3 mg/dL (8.4-10.2); Carbon Dioxide 29 mmol/L (22-29); Chloride 102 mmol/L (96-108); Cholesterol 262 mg/dL (<200); Estimated Glomerular Filt Rate > 60; Glucose Random 89 mg/dL (60-115); HDL Cholesterol 62 mg/dL (>40); LDL Cholesterol Calculated 129 mg/dL (<100); Potassium 3.6 mmol/L (3.3-5.1); Sodium 142 mmol/L (135-145); Total Protein 7.9 g/dL (6.5-8.0); Triglycerides 357 mg/dL (<150)
== END 2024-10-31 07:12 | disposition home or self-care (01) ==
LOC: HO.LAB 07:11
PROVIDERS: PCP Internal Medicine; Visit Provider Internal Medicine
DX: Z00.00 Encounter for general adult medical examination without abnormal findings (principal); I10 Essential (primary) hypertension; E66.09 Other obesity due to excess calories; Z13.1 Encounter for screening for diabetes mellitus
CPT/HCPCS: 36415; 80053; 80061; 83036; 85025

== ENCOUNTER 2024-10-31 08:05 | Outpatient (AMB) | payer OTHER, SELFPAY ==
--- NOTE | 2024-10-31 08:17 | MHC.OFFVIS ---
Intake Visit Reasons: Right knee pain and giving way Intake Note: Ms. Jeff is a 54-year-old female who presents with complaints of progressively worsening right knee pain and giving way. The patient states that she did undergo right knee arthroscopic surgery several years ago by Dr. Man. She got fairly good relief from the procedure initially. She did re-injure her right knee several months ago. She twisted her knee and had acute onset of pain. She has tried Tylenol, Celebrex and gabapentin which gave her minimal relief. She has failed the last 6 weeks of conservative treatment. She has done physical therapy exercises which aggravated her pain. She states that her right knee will give out several times per day. Allergies metronidazole (From Flagyl) Allergy (Verified 08/29/24 14:28) Unknown Medication List - Last Reconciled 10/31/24 by Andres Culp MD [id number] 50-300-40 mg 1 cap PO DAILY celecoxib (Celebrex) 200 mg PO DAILY PRN cholecalciferol (vitamin D3) 50 mcg PO DAILY escitalopram oxalate 20 mg PO DAILY gabapentin 100 mg PO BEDTIME hydrochlorothiazide 25 mg PO DAILY metoprolol succinate ER 200 mg PO DAILY omeprazole 20 mg PO DAILY PFSH Medical History IBS (irritable bowel syndrome) GERD (gastroesophageal reflux disease) Anxiety History of febrile seizure On beta jeremiah at home Cluster headaches Migraines HTN (hypertension) Surgical History Hx of dilation and curettage Hx of arthroscopy of right knee Hx of colonoscopy History of foot surgery History of tonsillectomy Family History Maternal Aunt Breast cancer Paternal Aunt Breast cancer Social History Are you a primary complex care nurse practitioner to a significant other at home: No Do you presently have visiting nurse or other home services: No Alcohol intake: current Alcohol intake frequency: holidays/special occasions only Comment: cramping Patient Tobacco Use Status: Never used Tobacco Current occupational status: employed 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 Gender identity: Female Physical Exam Const Other: Well-nourished well-developed very friendly female awake alert and oriented x3 in no acute distress Extrem Other: Bilateral lower extremity examination shows good capillary refill, no skin lesions noted, normal sensation light touch Right knee examination shows a minimal effusion, mild crepitus with range of motion, tenderness along her medial joint line, positive Mariah's test, no instability Results Reviewed Results Reviewed: X-rays of the patient's right knee show mild joint space narrowing, no acute bony abnormalities Assessment & Plan Assessment & Plan (1) Tear of medial meniscus of right knee: Code(s): S83.241A - Other tear of medial meniscus, current injury, right knee, initial encounter Category: Medical Plan Ms. Jeff presents with right knee pain and mechanical symptoms most likely due to a medial meniscus tear. Thus, I will send the patient for an MRI of her right knee for further evaluation. I will see her back once the MRI is completed to discuss the findings and treatment options. Feel free to call me at any time should questions regarding her orthopedic management arise. I spent 21 minutes in reviewing the patient's records and imaging studies, seeing the patient and documenting in the medical record. Orders: Orders MR knee RT wo con Today S83.241A - Other tear of medial meniscus, current injury, right knee, initial encounter Coding Level of Care Code Est Pt Level 3 (72823) Complex EM visit Add On G2211 Diagnoses Tear of medial meniscus of right knee S83.241A
== END 2024-10-31 08:16 | disposition home or self-care (01) ==
LOC: HO.HOS 08:06
PROVIDERS: PCP Internal Medicine; Visit Provider Orthopaedic Surgery
DX: S83.241A Other tear of medial meniscus, current injury, right knee, initial encounter (principal)
CPT/HCPCS: 99213

== ENCOUNTER → 2024-11-10 18:22 | Outpatient (BNV) | payer OTHER, SELFPAY | PROVIDERS: PCP Internal Medicine; Visit Provider Radiology Diagnostic Radiology | DX: S83.241A Other tear of medial meniscus, current injury, right knee, initial encounter (principal); M25.461 Effusion, right knee | CPT/HCPCS: 73721 ==

== ENCOUNTER 2024-11-10 18:23 | Outpatient (REF) | payer OTHER, SELFPAY ==
--- NOTE | ~2024-11-10 | MR_ITS ---
CLINICAL HISTORY: S83.241A - Other tear of medial meniscus, current injury, right knee, in... MR right knee without contrast Comparison: DX/SR - XR KNEE RT 3V - 12/09/22 08:51 EDT Findings: The medial meniscus is torn at the anterior horn and body. There is increased signal in posterior horn which does not extend to the articular surface there is increased signal in the lateral meniscus. In the body there is a single image with extension to the articular surface (series 12, image 22). The anterior and posterior cruciate ligaments are intact. The medial and lateral collateral ligaments are intact. There is medial periligamentous edema. The extensor mechanism is intact. Moderate-sized joint effusion. No Allen's cyst. Moderate tricompartmental osteophytosis. Suprapatellar ossific fragment measuring 1.0 cm. Mild amount edema in the patellofemoral compartment at the lateral aspect ( series 8, image 12). Mild amount of edema in the medial tibiofemoral compartment (series 12 images 19 through 25). 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 There is full-thickness chondromalacia in the medial tibiofemoral compartment. Partial-thickness chondromalacia in the lateral tibiofemoral compartment. Impression: Tear of the medial meniscus. Medial collateral ligament strain. Moderate-sized joint effusion. Tricompartmental degenerative change. Subchondral edema is seen in each compartment. 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 This document has been electronically signed by: Laurence Dominguez MD on 11/12/2024 23:03:20
== END 2024-11-10 18:24 | disposition home or self-care (01) ==
LOC: HO.MRI 18:23
PROVIDERS: PCP Internal Medicine; Visit Provider Orthopaedic Surgery
DX: S83.241A Other tear of medial meniscus, current injury, right knee, initial encounter (principal)
CPT/HCPCS: 73721

== ENCOUNTER 2024-11-14 19:17 | Emergency (ER) | payer OTHER, SELFPAY ==
--- NOTE | ~2024-11-14 | XR_ITS ---
CLINICAL HISTORY: pain 5 view left knee Comparison: MR - MR KNEE RT WO CON - 11/10/24 18:30 EDT DX/SR - XR KNEE RT 3V - 12/09/22 08:51 EDT Findings: No fractures or dislocations. Moderate degenerative disease with medial joint space narrowing, and tricompartmental spurring. Small joint effusion. No radiopaque foreign body. IMPRESSION: 1. No acute findings. 2. Moderate DJD and small joint effusion. This document has been electronically signed by: Joel Dang MD on 11/14/2024 20:30:38
[2024-11-14 19:36] VITALS: BP 148/78; PULSE 86; RESP 20; TEMP 36.3; O2SAT 96; BMI 30.4
--- NOTE | 2024-11-14 19:37 | ED_ITS ---
HPI - Extremity Injury (Lower) General Chief Complaint: Extremity Problem Stated Complaint: Injured lt knee Time Seen by Provider: 11/14/24 20:40 Source: patient and RN notes reviewed Mode of arrival: ambulatory Limitations: no limitations History of Present Illness ED Provider: Angelica Trinidad PA-C HPI Narrative: This is a 54-year-old female, with a past medical history of torn meniscus in left knee with repair in 2023, who presents emergency department with left knee pain since yesterday. She is unsure what exactly caused her to have this pain however did have a patient that was ?all over the place? and she is unsure if she twisted her knee. Pain worsens with ambulation. No calf tenderness. She has been taking ibuprofen without any relief. No other complaints or concerns at this time. MD complaint: knee injury Onset (ago): day(s) Type of Injury: unknown Place: work Severity: moderate Relieving factors: nothing Exacerbating factors: weight bearing Other symptoms: none Related Data Home Medications ?Medication ?Instructions ?Recorded ?Confirmed hydrochlorothiazide 25 mg tablet 25 mg PO DAILY 10/31/24 metoprolol succinate 200 mg 200 mg PO DAILY 07/23/20 0 10/31/24 tablet,extended release 24 hr omeprazole 20 mg capsule,delayed 20 mg PO DAILY 10/31/24 release cholecalciferol (vitamin D3) 50 50 mcg PO DAILY 10/31/24 mcg (2,000 unit) capsule escitalopram oxalate 20 mg tablet 20 mg PO DAILY 02/2310/31/24 jaazwgqwpv-wzvdqicxcapxu-klaifxao 1 cap PO DAILY 04/1910/31/24 50 mg-300 mg-40 mg capsule Previous Rx's ?Medication ?Instructions ?Recorded celecoxib 200 mg capsule (Celebrex) 200 mg PO DAILY IA N pain #90 caps 04/20/24 gabapentin 100 mg capsule 100 mg PO BEDTIME #30 caps 0 09/26/24 Allergies Allergy/AdvReac Type Severity Reaction Status Date / Time metronidazole (From Flagyl) Allergy Unknown Verified 11/14/24 19:38 Review of Systems Review of Systems: Yes all other systems are reviewed and are negative Constitutional: Constitutional: Reports as per HPI [facility] Past Medical History Medical History IBS (irritable bowel syndrome) GERD (gastroesophageal reflux disease) Anxiety History of febrile seizure On beta jeremiah at home Cluster headaches Migraines HTN (hypertension) Surgical History Hx of dilation and curettage Hx of arthroscopy of right knee Hx of colonoscopy History of foot surgery History of tonsillectomy Family History Family History Maternal Aunt Breast cancer Paternal Aunt Breast cancer Social History Social History Are you a primary child care center administrator to a significant other at home: No Do you presently have visiting nurse or other home services: No Alcohol intake: current Alcohol intake frequency: holidays/special occasions only Comment: cramping Patient Tobacco Use Status: Never used Tobacco Advance Directives: No Advance Directives Information Provided: Yes Current occupational status: employed 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 Gender identity: Female Physical Exam Vital Signs: Vital Signs: Last Vital Signs Temp 97.4 F 11/14/24 19:36 Pulse 86 11/14/24 19:36 Resp 20 11/14/24 19:36 BP 148/78 H 11/14/24 19:36 Pulse Ox 96 11/14/24 19:36 O2 Del Method Room Air 11/14/24 19:36 BMI result Body Mass Index 30.4 Const: General: cooperative, comfortable and no acute distress Orientation/consciousness: patient oriented x3 Limitations: no limitations HEENT: Head: Yes normal to inspection, Yes normocephalic and Yes atraumatic Ears: hearing grossly normal bilaterally General nose exam: Normal external nose present Face and sinus: Yes normal facial exam Mouth: Normal oral and palatal mucosa present, oropharynx normal and moist mucous membranes Throat: Yes posterior oropharynx normal Eyes: General: appearance normal, both eyes and all related structures Eyelids: Yes eyelids normal Conjunctivae: conjunctivae normal Sclerae: sclerae normal Pupils: Equal, round and reactive pupils present EOM: EOMs intact bilaterally Neck: Neck: Yes normal visual inspection, Yes full ROM and Yes no lymp hadenopathy Lymphatic: no lymphadenopathy noted Chest: Chest palpation & inspection: normal inspection of the chest Resp: Effort & Inspection: normal respiratory effort and able to speak in complete sentences Auscultation: clear to auscultation bilaterally, no crackles, no rales, no rhonchi and no wheezes Cardio: Rate: regular rate Rhythm: regular rhythm Heart sounds: S1 normal heart sound present and S2 normal heart sound present GI: Inspection: Yes normal to inspection Skin: General skin exam: no rashes or lesions noted Trauma: no lacerations or abrasions Wounds: no wounds Neuro: General: patient oriented x3 and moves all extremities Cranial nerves: Yes Equal, round and reactive pupils present Extrem: Other: Left knee with no obvious bony deformity or swelling. She does have tenderness palpation along the medial and lateral joint line, crepitus noted with flexion and extension. Full ROM without difficulty. Ambulatory with antalgic gait. No open wounds or lacerations. No calf tenderness. General: Yes normal to inspection Right upper extremity: normal to inspection Left upper extremity: normal to inspection Right lower extremity: normal to inspection Left lower extremity: normal to inspection Course Course Course Narrative: This is an RME: Additional HPI, ROS, PE not included below will be deferred to primary provider. RME assessment and note performed by: Angelica Trinidad PA-C This is a 17-lutz-bzs-female, with a hx of HTN, anxiety, torn meniscus with repair in 2023, who presents to the ER with a complaint of left knee pain since yesterday. Patient was working with the patient yesterday was all over the place and may have twisted her left knee. She has had worsening pain and swelling in her left knee. Tenderness palpation along the medial and lateral joint line. Plan: X-ray left knee Medical Decision Making Medical Decision Making MDM Narrative: This is a 54-year-old female who presents emergency department with complaints of left knee pain since yesterday. Unknown injury however was at work, may have twisted it. Patient mildly hypertensive at 148/78, all other vital signs within normal limits. X-rays were obtained revealing degenerative joint disease as well as mild joint effusion otherwise unremarkable. Discussed findings with patient. She had surgery on this left knee in the past through [facility]. I encouraged rest, ice, Alli wrap, and elevation. Given strict return precautions. Recommended to follow-up with orthopedics for further treatment and management. She understands and agrees with plan. Stable for discharge. Differential Diagnosis Differential Diagnoses: The differential diagnosis associated with the presentation includes Strain, sprain, contusion, dislocation, fracture Radiology Impression Discussion of test interpretation with radiology: I have reviewed the radiologist's reading. Radiologist Impression: CLINICAL HISTORY: pain 5 view left knee Comparison: MR - MR KNEE RT WO CON - 11/10/24 18:30 EDT DX/SR - XR KNEE RT 3V - 12/09/22 08:51 EDT Findings: No fractures or dislocations. Moderate degenerative disease with medial joint space narrowing, and tricompartmental spurring. Small joint effusion. No radiopaque foreign body. IMPRESSION: 1. No acute findings. 2. Moderate DJD and small joint effusion. This document has been electronically signed by: Joel Dang MD on 11/14/2024 20:30:38 Discharge Plan Discharge Clinical Impression: Strain of left knee Patient Disposition: Home, Self-Care Instructions: Knee Pain (ED) Additional Instructions: You were seen in the emergency department due to left knee pain Please rest, ice, and elevate your left leg. Alternate between ibuprofen and Tylenol as needed for pain and symptoms. Use Alli wrap for compression and support. Call the precision agriculture specialist tomorrow to follow-up. If any new or worsening symptoms occur including but not limited to worsening pain, severe chest pain or shortness of breath, please seek emergent care. Prescriptions: No Action celecoxib [Celebrex] 200 mg capsule 200 mg PO DAILY PRN (Reason: pain) Qty: 90 3RF gabapentin 100 mg capsule 100 mg PO BEDTIME Qty: 30 3RF escitalopram oxalate 20 mg tablet 20 mg PO DAILY omeprazole 20 mg capsule,delayed release(DR/EC) 20 mg PO DAILY hydrochlorothiazide 25 mg tablet 25 mg PO DAILY metoprolol succinate 200 mg tablet extended release 24 hr 200 mg PO DAILY cholecalciferol (vitamin D3) 50 mcg (2,000 unit) capsule 50 mcg PO DAILY gzxhreoiuk-bzhevlnsfkmwm-ksva 50-300-40 mg capsule 1 cap PO DAILY Referrals: [facility] [Provider Group] Stand Alone Forms: Work/School Release Print Language: Moroccan
--- OUTSIDE RECORDS SUMMARY | 2024-11-14 20:09 | XMS_ITS | Patient Health Record ---
Author Organization [facility] Address [address] [place] [id number] Care Team Providers Care Corporate Auditor Name Role Phone Israel Neal MD Primary Care Provider Unavailab Rolando Peguero Jr Unavailable [phone] Reason For Referral No Information Medications Medication SIG (Take, Route, Frequency, Duration) Notes Start Date End Date Status Vitamin D 50 MCG (1999) 1 tablet Oral ly Once a day Active Citalopram Hydrobromide 20 MG 1 tablet O rally Once a day Active hydroCHLOROthiazide 25 MG 1 tablet in e morning Orally Once a day Active Omeprazole 20 MG Orally Once a day Active MiraLax (colon prep) 8.3 oun ce ((238) grams mixed with Gatorade or Crystal Light orally begin at 5:00 p.m. the day before the procedure for 1 day 01/02/2020 Active Apple Cider Vinegar 2 gummies Orally onc e a day Active Immunizations Vaccine Route Administration Date Status Comme nts Influenza Unknown 01/02/2020 Refused Social History Tobacco Use: Social History Observation Description Date Details (start date - stop date) Never Smoker NA - NA Tobacco Use/Smoking Question Answer Notes Patient is a nonsmoker Alcohol Screen Question Answer Notes Did you have a drink contain ing alcohol in the past year? Yes How often did you have a dri nk containing alcohol in the past year? Monthly or less (1 point) How many drinks did you have on a typical day when you were drinking in the past year? 1 or 2 drinks (0 point) How often did you have 6 or more drinks on one occasion in the past year? Never (0 point) Points 1 Interpretation Negative Problems Problem Type SNOMED Code ICD Code Onset Dates Problem Status W/U Status Risk Notes Problem 742463173 Colon cancer screening (Z12.11) Active confirmed Problem 532950905 Encounter for ot her preprocedural examination (Z01.818) Active confirmed Problem 445796319 Gastroesophageal reflux disease without esophagitis (K21.9) Active confirmed Plan Of Treatment Future Test Test Name Order Date COLONOSCOPY 01/02/2020 Insurance Providers Payer Name Payer Address Payer Phone Subscriber Number Group Number Insured Name Patient Relationship to Insured Coverage Start Date Coverage End Date [employer] [place] [address] [address] [place] [address] [id number] MAULIK YEPEZ Self - patient is the insured Medical (General) History Medical History History ICD Code hypertension headaches (migraines) PSVT gastroesophageal reflux disease anxiety Surgical History Surgery Date(Month/Year) bunions removed on each foot 2015 tonsillectomy and adenoidectomy
--- OUTSIDE RECORDS SUMMARY | 2024-11-14 20:09 | XMS_ITS | Patient Health Record ---
[facility] Address [address] [place] [address] Care Team Providers Care Theatrical Variety Agent Name Role Phone Israel Neal MD Primary Care Provider UnavailFifi Marquis Unavailable [phone] Allergies Allergen (clinical drug ingredient) Drug/Non Drug Allergy documented on EMR Reaction Allergy Type Onset Date Status metronidazole Flagyl nausea Drug Allergy Act eliezer Reason For Referral No Information Medications Medication SIG (Take, Route, Frequency, Duration) Notes Start Date End Date Status Vitamin D Active Citalopram Hydrobromide 20 MG 1 tablet Orally Once a day; Duration: 30 day(s) Active Work Note . . . Patient still recovering from foot surgery-tenative return to work on October 11 2022 09/06/2022 Active hydroCHLOROthiazide 25 MG 1 tablet in th morning Orally Once a day; Duration: 30 day(s) Active Multivitamins Not-Ta cristopher Omeprazole 20 MG 1 capsule 30 minutes before morning meal Orally Once a day; Duration: 30 day(s) Active Toprol XL Not-Taking Metoprolol Succinate 200 MG 1 capsule Or ally Once a day; Duration: 30 day(s) Active Ultram 50 MG 1 tablet as needed for pain Orally every 6 hrs; Duration: as needed 03/27/2015 Not-Taking Walking Boot/Pneumatic As directed Wear Daily; Duration: Until further notice 08/04/2022 Active Work Note . . . Extending time off work due to continued healing from foot surgery, new return to work date tenative for 09/20/22 08/17/2022 Active Physical Therapy . . . 2-3x/week; Duration: 3-4 weeks 08/25/2022 Active Work Note . . . Patient can return to full duty with no limitations on 10/11/2022 10/06/2022 Active Gabapentin 300 MG 1 capsule Orally every 8 hours; Duration: 14 days 07/23/2022 Active Percocet 5-325 MG 1-2 tablet as needed Orally every 4-6 hrs as needed for pain; Duration: 5 days 07/21/2022 Not-Taking Ibuprofen 800 MG 1 tablet Orally Three times a day; Duration: 14 days 07/19/2022 Not-Taking Immunizations Vaccine Route [...] Problem Status W/U Status Risk Notes Problem Contracture of joint of left foot (disorder) (985883277810986) Contracture , left foot (M24.575) Active confirmed Problem Acquired hallux valgus (85281335) Hallux valgus (acquired), left foot (M20.12) Active confirmed Problem Acquired hammer toe of left foot (5339393622469859 ) Hammer toe of left foot (M20.42) Active [...] 03/27/2015 X ray : Foot, right 3V 02/06/2013 81729, [id number]-KFUUF/INJECT, JOINT/BURSA 1 06/18/2012 80082, [id number]-TSIND/INJECT, JOINT/BURSA 0 10/25/2013 74057, [id number]-FHQAQ/INJECT, JOINT/BURSA 1 06/30/2014 75992, W6914-OXAUO/INJECT, JOINT/BURSA 0 05/16/2015 77287, Q2436-ZYKOV/INJECT, JOINT/BURSA 1 12171, J0702- Neuroma/Injection 02/27/20 14 Insurance Providers Payer Name Payer Address Payer Phone Subscriber Number Group Number Insured Name Patient Relationship to Insured Coverage Start Date Coverage End Date [employer] [address] [address] [place] [address] [id number] Radha Jeff Self - patient is the insured Medical (General) History Medical History History ICD Code anxiety high blood pressure chicken pox Headaches/Migraines Joint implants/screws Surgical History Surgery Date(Month/Year) bunionectomy, left foot 02/1988 torn miniskus 04/2014 bunionectomy, right foot 2017 tonsillectomy 1975 Meniscus repair, right knee 2016 Fernando Man 2nd, Tenotomy/Capsulot isabel Left 07/22/2022 Hospitalization History Reason Date(Month/Year) [facility] for a 3 day stay, f or chest pain 04/2013
[2024-11-14 20:48] VITALS: BP 148/78; PULSE 86; RESP 20; TEMP 36.3; O2SAT 96
== END 2024-11-14 20:48 | disposition home or self-care (01) ==
PROVIDERS: Emergency Provider Emergency Medicine; PCP Internal Medicine
DX: S86.912A Strain of unspecified muscle(s) and tendon(s) at lower leg level, left leg, initial encounter (principal); M25.562 Pain in left knee; X58.XXXA Exposure to other specified factors, initial encounter; Y93.9 Activity, unspecified; Y92.9 Unspecified place or not applicable; Y99.8 Other external cause status
CPT/HCPCS: 73562; 99282; 99283

== ENCOUNTER → 2024-11-14 19:40 | Outpatient (BNV) | payer OTHER, SELFPAY | PROVIDERS: Emergency Provider Emergency Medicine; PCP Internal Medicine; Visit Provider Student in an Organized Health Care Education/Training Program | DX: M17.12 Unilateral primary osteoarthritis, left knee (principal); M25.462 Effusion, left knee | CPT/HCPCS: 73562 ==

== ENCOUNTER 2025-01-01 14:32 | Outpatient (AMB) | payer OTHER, SELFPAY ==
--- NOTE | 2025-01-01 14:34 | MHC.OFFVIS ---
Vital Signs 01/01/25 14:39 Height 5 ft 7 in Weight 200 lb BMI 31.3 Intake Visit Reasons: OV- B/L knee OA Intake Note: Radha is a 54 year old female who presents today as a follow up for her bilateral knee OA. At today's visit she states that she did have her MRI of the right knee on 11/12/24. She reports that the left knee is feeling worse than the right knee and that the burning sensation has stopped. She has had injections in the past which gave her temporary relief. She wishes to hold off on further surgery for now. She states that her son is getting next month. She has tried Tylenol and anti-inflammatory medicines as well as gabapentin which gave her mild relief. Allergies metronidazole (From Flagyl) Allergy (Verified 01/01/25 14:39) Unknown Medication List - Last Reconciled 01/01/25 by Andres Culp MD yqyfgyjasd-dspfyvhhnsczd-wyhl 50-300-40 mg 1 cap PO DAILY cholecalciferol (vitamin D3) 50 mcg PO DAILY escitalopram oxalate 20 mg PO DAILY gabapentin 100 mg PO BEDTIME hydrochlorothiazide 25 mg PO DAILY metoprolol succinate ER 200 mg PO DAILY omeprazole 20 mg PO DAILY PFSH Medical History IBS (irritable bowel syndrome) GERD (gastroesophageal reflux disease) Anxiety History of febrile seizure On beta jeremiah at home Cluster headaches Migraines HTN (hypertension) Surgical History Hx of dilation and curettage Hx of arthroscopy of right knee Hx of colonoscopy History of foot surgery History of tonsillectomy Family History Maternal Aunt Breast cancer Paternal Aunt Breast cancer Social History Are you a primary resident care assistant to a significant other at home: No Do you presently have visiting nurse or other home services: No Alcohol intake: current Alcohol intake frequency: holidays/special occasions only Comment: cramping Patient Tobacco Use Status: Never used Tobacco Current occupational status: employed 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 Gender identity: Female Physical Exam Vital Signs: BMI result Body Mass Index 31.3 Extrem Other: Bilateral knee examination shows minimal effusions, palpable crepitus with range of motion, pain with range of motion, no instability Results Reviewed Results Reviewed: X-rays of the patient's left knee taken previously show joint space narrowing, subchondral sclerosis, no acute bony abnormalities MRI of the patient's right knee shows mild to moderate diffuse degenerative changes as well as a tear of the medial meniscus Assessment & Plan Assessment & Plan (1) Arthritis of left knee: Code(s): M17.12 - Unilateral primary osteoarthritis, left knee Category: Medical (2) Arthritis of right knee: Code(s): M17.11 - Unilateral primary osteoarthritis, right knee Category: Medical Plan Ms. Jeff presents with bilateral knee pains, left greater than right, due to degenerative joint disease. I had a lengthy discussion with the patient regarding the treatment options. She wishes to hold off on a cortisone injection today. I will see her back prior to her son's wedding next month. She will contact me prior to that appointment should any questions or concerns arise. Feel free to call me at any time should questions regarding her orthopedic management arise. I spent 21 minutes in reviewing the patient's records and imaging studies, seeing the patient and documenting in the medical record. Coding Level of Care Code Est Pt Level 3 (71772) Complex EM visit Add On G2211 Diagnoses Arthritis of left knee M17.12 Arthritis of right knee M17.11
[2025-01-01 14:39] VITALS: BMI 31.3
--- OUTSIDE RECORDS SUMMARY | 2025-01-01 15:31 | XMS_ITS | Clinical Summary ---
Author Organization [facility] Address [address] [id number] Care Team Providers Care Small Package And Bundle Sorter Clerk Name Role Phone Israel Neal MD Primary [...] (1 of 2) 01/07/2020 Influenza Vaccine (#1) 2025 Pneumococcal Vaccine Aged Out No long er eligible based on patient's age to complete this topic RSV Ped < 20 months Aged Out No longe r eligible based on patient's age to complete this topic Care Teams Small Package And Bundle Sorter Clerk Relationship Specialty Start Date End Date Israel Neal MD PCP - General Internal Medicine 09/06/18
--- OUTSIDE RECORDS SUMMARY | 2025-01-01 15:31 | XMS_ITS | Patient Health Record ---
Author Organization [facility] Address [address] [place] [address] Care Team Providers Care Survey Researcher Name Role Phone Israel Neal MD Primary Care Provider UnavailFifi Marquis Unavailable [phone] Allergies Allergen (clinical drug ingredient) Drug/Non Drug [...] Contracture of joint of left foot (disorder) (244461831223423) Contracture , left foot (M24.575) Active confirmed Problem Acquired hallux valgus (68497233) Hallux valgus (acquired), left foot (M20.12) Active confirmed Problem Acquired hammer toe of left foot (7996644348798429 ) Hammer toe of left foot (M20.42) [...] X ray : Foot, right 3V 02/06/2013 85630, T0352-UVFQO/INJECT, JOINT/BURSA 1 06/18/2012 34382, H0111-CZVLP/INJECT, JOINT/BURSA 0 10/25/2013 06423, K3061-CJRTO/INJECT, JOINT/BURSA 1 06/30/2014 19956, K6211-JKVQW/INJECT, JOINT/BURSA 0 05/16/2015 72322, Q5720-VQMFY/INJECT, JOINT/BURSA 1 76091, J0702- Neuroma/Injection 02/27/20 14 Insurance Providers Payer Name Payer Address Payer Phone Subscriber Number Group Number Insured Name Patient Relationship to Insured Coverage Start Date Coverage End Date [employer] [address] [address] [place] [address] [id number] Radha Jeff Self - patient is the insured Medical (General) History Medical History History ICD Code anxiety high blood pressure chicken pox Headaches/Migraines Joint implants/screws Surgical History Surgery Date(Month/Year) bunionectomy, left foot 02/1988 torn miniskus 04/2014 bunionectomy, right foot 2017 tonsillectomy 1975 Meniscus repair, right knee 2016 Fernando Man 2nd, Tenotomy/Capsulot isabel Left 07/22/2022 Hospitalization History Reason Date(Month/Year) [facility] for a 3 day stay, f or chest pain 04/2013
--- OUTSIDE RECORDS SUMMARY | 2025-01-01 15:31 | XMS_ITS | Clinical Summary ---
Author Organization [facility] Address [address] [place] [address] Care Team Providers Care Sas Architect Name Role Phone Israel Neal MD Primary Care Provider [phone] Surgical History Surgery Date Site/Laterality Comments TONSILLECTOMY [...] 04/26/2018 COVID-19 Vaccine (2023-2 5 season) 2024 Depression Screening 05/09/2024 Influenza Vaccine (#1) 2025 HIB Vaccines Aged Out No longer [...] RESULTING AGENCY - 05/04/2018 5:16 PM EST [id number] THINPREP PAP, IMAGED AND CELL BLOCK: UNSATISFACTORY [...] HIGH RISK HPV ASSAY: HIGH RISK HPV: NEGATIVE (SEROTYPES 16,18,31,33,35,39,45,51,52,56,58,59,66,68) COMPLETED ON 2018-04-28 ADEQUACY: UNSATISFACTORY ENDOCERVICAL/TRANSFORMATION ZONE COMPONENT PRESENT. SOURCE: THINPREP PAP HPV ANY DX: REFLEX 16 AND 18, CERVICAL, IMAGED CLINICAL INFORMATION: [...] Recently Relevant to Health Maintenance Care Teams Sas Architect Relationship Specialty Start Date End Date Israel Neal MD PCP - General Internal Medicine 03/20/12
--- OUTSIDE RECORDS SUMMARY | 2025-01-01 15:31 | XMS_ITS | Patient Health Record ---
Author Organization [facility] Address [address] [place] [address] Care Team Providers Care Cigarette Machine Operator Name Role Phone Israel Neal MD Primary Care Provider Unavailab Rolando Peguero Jr Unavailable Reason For Referral No Information Medications Medication [...] Problem Status W/U Status Risk Notes Problem [id number] Colon cancer screening (Z12.11) Active confirmed Problem [id number] Encounter for ot her preprocedural examination (Z01.818) Active confirmed Problem [id number] Gastroesophageal reflux disease without esophagitis (K21.9) Active confirmed Plan Of Treatment Future Test Test Name Order Date COLONOSCOPY 01/02/2020 Insurance Providers Payer Name Payer Address Payer Phone Subscriber Number Group Number Insured Name Patient Relationship to Insured Coverage Start Date Coverage End Date [employer] [place] [address] [address] [place] [address] [id number] MAULIK YEPEZ Self - patient is the insured Medical (General) History Medical History History ICD Code hypertension headaches (migraines) PSVT gastroesophageal reflux disease anxiety Surgical History Surgery Date(Month/Year) bunions removed on each foot 2015 tonsillectomy and adenoidectomy
== END 2025-01-01 15:15 | disposition home or self-care (01) ==
PROVIDERS: PCP Internal Medicine; Visit Provider Orthopaedic Surgery
DX: M17.0 Bilateral primary osteoarthritis of knee (principal)
CPT/HCPCS: 99213

== ENCOUNTER 2025-01-15 07:59 | Outpatient (AMB) | payer OTHER, SELFPAY ==
--- NOTE | 2025-01-15 08:03 | A.OFFVIS_ITS ---
Vital Signs 01/15/25 08:06 Height 5 ft 7 in Weight 200 lb BMI 31.3 Intake Visit Reasons: Bilateral knee pains Intake Note: Radha is a 55 year old female who presents with complaints of bilateral knee pains, left greater than right. She describes her pains as sharp in nature. She has tried Tylenol and anti-inflammatory medicines as well as gabapentin which gave her mild relief. She wishes to hold off on total knee replacement surgery for as long as possible. Allergies metronidazole (From Flagyl) Allergy (Verified 01/15/25 08:06) Unknown Medication List - Last Reconciled 01/15/25 by Andres Culp MD ilyomxnmoy-scdswvrgkzcps-vzxs 50-300-40 mg 1 cap PO DAILY cholecalciferol (vitamin D3) 50 mcg PO DAILY escitalopram oxalate 20 mg PO DAILY gabapentin 100 mg PO Q8H hydrochlorothiazide 25 mg PO DAILY metoprolol succinate ER 200 mg PO DAILY omeprazole 20 mg PO DAILY PFSH Medical History IBS (irritable bowel syndrome) GERD (gastroesophageal reflux disease) Anxiety History of febrile seizure On beta jeremiah at home Cluster headaches Migraines HTN (hypertension) Surgical History Hx of dilation and curettage Hx of arthroscopy of right knee Hx of colonoscopy History of foot surgery History of tonsillectomy Family History Maternal Aunt Breast cancer Paternal Aunt Breast cancer Social History Are you a primary career information specialist to a significant other at home: No Do you presently have visiting nurse or other home services: No Alcohol intake: current Alcohol intake frequency: holidays/special occasions only Comment: cramping Patient Tobacco Use Status: Never used Tobacco Current occupational status: employed 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 Gender identity: Female Physical Exam Vital Signs: BMI result Body Mass Index 31.3 Extrem Other: Bilateral knee examination shows minimal effusions, palpable crepitus with range of motion, pain with range of motion, no instability Office Procedures AMB Joint Injection/Aspiration Joint Injection/Aspiration Primary Site: left knee Prep: site was prepped using aseptic technique Injected: 40 mg of, DepoMedrol and 1% plain lidocaine Procedure: The patient tolerated the procedure well Coding 86096 - Large joint Procedure code (CPT) selection complete AMB Joint Injection/Aspiration Joint Injection/Aspiration Primary Site: right knee Prep: site was prepped using aseptic technique Injected: 40 mg of, DepoMedrol and 1% plain lidocaine Procedure: The patient tolerated the procedure well Coding 60912 - Large joint Procedure code (CPT) selection complete Results Reviewed Results Reviewed: X-rays of the patient's bilateral knees taken previously show joint space narrowing, subchondral sclerosis, no acute bony abnormalities Assessment & Plan Assessment & Plan (1) Osteoarthritis of left knee: Code(s): M17.12 - Unilateral primary osteoarthritis, left knee Category: Medical (2) Osteoarthritis of right knee: Code(s): M17.11 - Unilateral primary osteoarthritis, right knee Category: Medical Plan Ms. Jeff presents with bilateral knee pains due to osteoarthritis. The risks and benefits of bilateral knee cortisone injections were discussed at length with the patient. The patient wished to proceed. She tolerated the injections well. She will continue with her home exercise program. She will contact me prior to her follow-up appointment in 3 months should any questions or concerns arise. Feel free to call at any time should questions regarding her orthopedic management arise. I spent 20 minutes in reviewing the patient's records and imaging studies, seeing the patient and documenting in the medical record. Orders: Orders AMB Joint Injection/Aspiration Today M17.11 - Unilateral primary osteoarthritis, right knee AMB Joint Injection/Aspiration Today M17.12 - Unilateral primary osteoarthritis, left knee Medications: Changed From gabapentin 100 mg PO BEDTIME 30 caps 3RF To gabapentin 100 mg PO Q8H 90 caps 3RF Coding Level of Care Code Est Pt Level 3 (51373) Complex EM visit Add On G2211 Diagnoses Osteoarthritis of left knee M17.12 Osteoarthritis of right knee M17.11 CPT Codes Coding - 22881 Large joint: 14359 - Large joint ([id number]) Coding - 60490 Large joint: 90021 - Large joint ([id number])
[2025-01-15 08:06] VITALS: BMI 31.3
== END 2025-01-15 08:24 | disposition home or self-care (01) ==
PROVIDERS: PCP Internal Medicine; Visit Provider Orthopaedic Surgery
DX: M17.0 Bilateral primary osteoarthritis of knee (principal)
CPT/HCPCS: 20610; 99213

== ENCOUNTER → 2025-01-15 07:59 | Outpatient (BNVA) | payer OTHER, SELFPAY | PROVIDERS: PCP Internal Medicine; Visit Provider Orthopaedic Surgery | DX: M17.12 Unilateral primary osteoarthritis, left knee (principal); M17.11 Unilateral primary osteoarthritis, right knee | CPT/HCPCS: 20610; J1010; J2003 ==

== ENCOUNTER 2025-01-23 12:24 | Outpatient (REF) | payer OTHER, SELFPAY ==
--- NOTE | ~2025-01-23 | MM_ITS ---
EXAMINATION: MM SCREENING DIGITAL BREAST TOMOSYNTHESIS, BILATERAL CLINICAL INFORMATION: Screening. Asymptomatic. COMPARISON: Mammography: Comparison is made with available priors TECHNIQUE: Digital breast mammography with tomosynthesis is performed in both the craniocaudal and mediolateral oblique views along with computer-aided detection (CAD). FINDINGS: The breasts are heterogeneously dense, which may obscure small masses (ACR BI-RADS breast composition Category c). There are no significant masses, abnormal calcifications, or other abnormalities. MM/MM tomosynthesis screening BI IMPRESSION: No mammographic evidence of malignancy. ASSESSMENT: BI-RADS BI-RADS 1 - Negative RECOMMENDATION: Routine annual mammography screening. 1 year F/U This examination should not preclude the clinical evaluation of a suspicious palpable abnormality. This patient's information was entered into a reminder system with a target due date for their next mammogram. Electronically signed by: Dolores Rodriguez DO 01/28/2025 12:35 PM EDT
--- OUTSIDE RECORDS SUMMARY | 2025-01-23 15:51 | XMS_ITS | Clinical Summary ---
Author Organization [facility] Address [address] [id number] Care Team Providers Care Hoe Runner Name Role Phone Israel Neal MD Primary [...] age to complete this topic Care Teams Hoe Runner Relationship Specialty Start Date End Date Israel Neal MD PCP - General Internal Medicine 09/06/18
--- OUTSIDE RECORDS SUMMARY | 2025-01-23 15:51 | XMS_ITS | Patient Health Record ---
Author Organization [facility] Address [address] [place] [address] Care Team Providers Care Used Car Salesperson Name Role Phone Israel Neal MD Primary Care Provider UnavailFifi Marquis Unavailable [phone] Allergies Allergen (clinical drug ingredient) Drug/Non Drug [...] Contracture of joint of left foot (disorder) (309569305824582) Contracture , left foot (M24.575) Active confirmed Problem Acquired hallux valgus (07945239) Hallux valgus (acquired), left foot (M20.12) Active confirmed Problem Acquired hammer toe of left foot (7988954494405169 ) Hammer toe of left foot (M20.42) [...] X ray : Foot, right 3V 02/06/2013 60468, [id number]/INJECT, JOINT/BURSA 1 06/18/2012 73412, [id number]-WQPKT/INJECT, JOINT/BURSA 0 10/25/2013 67141, [id number]-TXJKB/INJECT, JOINT/BURSA 1 06/30/2014 05363, O1679-XKKDI/INJECT, JOINT/BURSA 0 05/16/2015 82589, [id number]-NCXKS/INJECT, JOINT/BURSA 1 07768, J0702- Neuroma/Injection 02/27/20 14 Insurance Providers Payer Name Payer Address Payer Phone Subscriber Number Group Number Insured Name Patient Relationship to Insured Coverage Start Date Coverage End Date [employer] Benefits [address] [address] [place] [address] [id number] Radha Jeff Self - patient is the insured Medical (General) History Medical History History ICD Code anxiety high blood pressure chicken pox Headaches/Migraines Joint implants/screws Surgical History Surgery Date(Month/Year) bunionectomy, left foot 02/1988 torn miniskus 04/2014 bunionectomy, right foot 2017 tonsillectomy 1975 Meniscus repair, right knee 2016 Fernando Man 2nd, Tenotomy/Capsulot isabel Left 07/22/2022 Hospitalization History Reason Date(Month/Year) [facility] for a 3 day stay, f or chest pain 04/2013
--- OUTSIDE RECORDS SUMMARY | 2025-01-23 15:52 | XMS_ITS | Patient Health Record ---
Author Organization [facility] Address [address] [place] [address] Care Team Providers Care Corporate Recruiter Name Role Phone Israel Neal MD Primary [...] Problem Status W/U Status Risk Notes Problem [id number] Colon cancer screening (Z12.11) Active confirmed Problem 742027185 Encounter for ot her preprocedural examination (Z01.818) Active confirmed Problem 865579710 Gastroesophageal reflux disease without esophagitis (K21.9) Active confirmed Plan Of Treatment Future Test Test Name Order Date COLONOSCOPY 01/02/2020 Insurance Providers Payer Name Payer Address Payer Phone Subscriber Number Group Number Insured Name Patient Relationship to Insured Coverage Start Date Coverage End Date [employer] [address] [address] [place] [address] [id number] 1 MAULIK YEPEZ Self - patient is the insured Medical (General) History Medical History History ICD Code hypertension headaches (migraines) PSVT gastroesophageal reflux disease anxiety Surgical History Surgery Date(Month/Year) bunions removed on each foot 2015 tonsillectomy and adenoidectomy
== END 2025-01-23 12:25 | disposition home or self-care (01) ==
LOC: HO.MAMMO 12:24
PROVIDERS: PCP Internal Medicine; Visit Provider Internal Medicine
DX: Z12.31 Encounter for screening mammogram for malignant neoplasm of breast (principal); R51.9 Headache, unspecified
CPT/HCPCS: 36415; 77063; 77067; 85652

== ENCOUNTER → 2025-01-23 12:30 | Outpatient (BNV) | payer OTHER, SELFPAY | PROVIDERS: PCP Internal Medicine; Visit Provider Internal Medicine | DX: Z12.31 Encounter for screening mammogram for malignant neoplasm of breast (principal) | CPT/HCPCS: 77063; 77067 ==

== ENCOUNTER 2025-03-13 09:50 | Emergency (ER) | payer OTHER, SELFPAY ==
--- OUTSIDE RECORDS SUMMARY | 2024-10-30 04:46 | XMS_ITS ---
Author Organization [facility] Address [address], [place] [id number] Care Team Providers Care Electric Shipyard Operator Name Role Phone CHARLINE ZUNIGA Primary Care Provider REASON FOR VISIT Lab work done Encounters Encounter Location Date Provider Diagnosis [facility] [address] [place] [address] 10/30/2024 CHARLINE ZUNIGA Essential (primary) hypertension I10 ; Obesity due to excess calories with serious comorbidity, unspecified classification E66.09 and Encounter for general adult medical examination without abnormal findings Z00.00 ASSESSMENTS Encounter Date Diagnosis Assessment Notes Treatment Notes Treatment Clinical Notes Section Notes 10/30/2024 Essential (primary) hypertension (ICD-10 - I10) 10/30/2024 Obesity due to excess calories with serious comorbidity, unspecified classification (ICD-10 - E66.09) 10/30/2024 Encounter for general adult medical examination without abnormal findings (ICD-10 - Z00.00) PLAN OF TREATMENT No Information
--- OUTSIDE RECORDS SUMMARY | 2024-11-20 08:30 | XMS_ITS ---
Author Organization [facility] Address [address], [place] [id number] Care Team Providers Care Hydramatic Specialist Name Role Phone NADIA CHARLINE Primary Care Provider ALLERGIES Allergen (clinical drug ingredient) Drug/Non Drug Allergy documented on EMR Reaction Allergy Type Onset Date Status metronidazole Flagyl nausea Drug Allergy Act eliezer REASON FOR REFERRAL Reason HOLD FOR LOCKED NOTE Appt New patient Diagnosis 1 Tremor (R25.1) Referral Organization [facility] Referring Provider First Name CHARLINE Referring Provider Last Name NADIA Referring Provider Speciality Internal M edicine Referred Provider RHONDA AVALOS Referred Provider Specialty Neurology General Notes HOLD FOR LOCKED NOTE , CHARLINE ZUNIGA 11/20/2024 07:23:18 PM > locked Referral Priority Urgent REASON FOR VISIT CPX MEDICATIONS Medication SIG (Take, Route, Frequency, Duration) Notes Start Date End Date Status Escitalopram Oxalate 20 MG 1 tablet Oral ly Once a day for 90 days Active Metoprolol Succinate ER 200 MG 1 tablet Orally Once a day Active Losartan Potassium 25 MG 1 tablet Orally Once a day for 90 day(s) 11/20/2024 Active Omeprazole 20 MG 1 capsule 1/2 to 1 h our before morning meal Orally Once a day for 90 days Active Gabapentin 100 MG 1 capsule Orally Onc e a day Active Lzarxffuqf-HYIA-Ddfqfnwv 50-300-40 MG 1 capsule as needed Orally every 8 hrs prn for 30 day(s) 07/18/2023 Active Ibuprofen 800 MG 1 tablet with food o r milk as needed Orally every 8 hrs Active SOCIAL HISTORY Tobacco Use: Social History Observation Description Date Details (start date - stop date) Never Smoker NA - NA Sex Assigned At : Social History Observation Description Sex Assigned At Unknown Smoking Question Answer Notes Are you a: never smoker PROBLEMS Problem Type ICD Code Onset Dates Problem Status W/U Status Risk SNOMED Code Notes Problem PSVT (paroxysmal supraventricular tachycardia) (I47.10) Active confirmed 36903346 Problem Chronic GERD (K21.9) Active confirmed 2 04088435 Problem Hypertriglyceridemia (E78.1) Active confirmed 529823452 Problem Other chronic pain (G89.29) Active confirmed 37944812 VITAL SIGNS Height 66.50 in 11/20/2024 Weight 247.0 lbs 11/20/2024 Blood pressure systolic 118 mm Hg 11/21/19 25 Blood pressure diastolic 86 mm Hg 025 BMI 39.27 kg/m2 11/20/2024 Encounters Encounter Location Date Provider Diagnosis [facility] [address] [place] [address] 11/20/2024 [facility] Encounter for genera l adult medical examination with abnormal findings Z00.01 ; Essential (primary) hypertension I10 ; Obesity due to excess calories with serious comorbidity, unspecified classification E66.09 ; Primary osteoarthritis of both knees M17.0 ; Chronic GERD K21.9 ; PSVT (paroxysmal supraventricular tachycardia) I47.10 ; Headache, unspecified R51.9 ; Tremor R25.1 and Hypertriglyceridemia E78.1 ASSESSMENTS Encounter Date Diagnosis Assessment Notes Treatment Notes Treatment Clinical Notes Section Notes 11/20/2024 Encounter for sahara l adult medical examination with abnormal findings (ICD-10 - Z00.01) 1. Routine healthcare maintenance: Colonoscopy was done in 2021 and is next due in 2031. Mammogram is due next month. She is up-to-date with [employer]. She is up-to-date with fasting blood work 2. Hypertension: Suboptimal diastolic. Will trial switching hydrochlorothiazide to losartan 25 mg and continue current metoprolol. Will recheck in 6 weeks 3. Obesity: Encouraged efforts at diet and weight loss. A1c was normal 4. Osteoarthritis of the knees: She is following with Dr. Culp at orthopedics and has had some benefit from injection therapy 5. GERD: Stable with omeprazole. She has recurrent symptoms with skipping 1 day so we will maintain present dosing 6. History of PSVT: Stable on current metoprolol 7. Headache: Right temporal. Will check a sed rate to rule out temporal arteritis but I am more suspicious this is TMJ. Encouraged use of her nightguard 8. Tremor: Will refer to neurology. Appears consistent with essential tremor and her mother has similar history 9. Hypertriglyceridemia : Will work at diet and plan to recheck lipids around the time of next visit 11/20/2024 Essential (primary) hypertension (ICD-10 - I10) 1. Routine healthcare maintenance: Colonoscopy was done in 2021 and is next due in 2031. Mammogram is due next month. She is up-to-date with [employer]. She is up-to-date with fasting blood work 2. Hypertension: Suboptimal diastolic. Will trial switching hydrochlorothiazide to losartan 25 mg and continue current metoprolol. Will recheck in 6 weeks 3. Obesity: Encouraged efforts at diet and weight loss. A1c was normal 4. Osteoarthritis of the knees: She is following with Dr. Culp at orthopedics and has had some benefit from injection therapy 5. GERD: Stable with omeprazole. She has recurrent symptoms with skipping 1 day so we will maintain present dosing 6. History of PSVT: Stable on current metoprolol 7. Headache: Right temporal. Will check a sed rate to rule out temporal arteritis but I am more suspicious this is TMJ. Encouraged use of her nightguard 8. Tremor: Will refer to neurology. Appears consistent with essential tremor and her mother has similar history 9. Hypertriglyceridemia : Will work at diet and plan to recheck lipids around the time of next visit 11/20/2024 Obesity due to exces s calories with serious comorbidity, unspecified classification (ICD-10 - E66.09) 1. Routine healthcare maintenance: Colonoscopy was done in 2021 and is next due in 2031. Mammogram is due next month. She is up-to-date with [employer]. She is up-to-date with fasting blood work 2. Hypertension: Suboptimal diastolic. Will trial switching hydrochlorothiazide to losartan 25 mg and continue current metoprolol. Will recheck in 6 weeks 3. Obesity: Encouraged efforts at diet and weight loss. A1c was normal 4. Osteoarthritis of the knees: She is following with Dr. Culp at orthopedics and has had some benefit from injection therapy 5. GERD: Stable with omeprazole. She has recurrent symptoms with skipping 1 day so we will maintain present dosing 6. History of PSVT: Stable on current metoprolol 7. Headache: Right temporal. Will check a sed rate to rule out temporal arteritis but I am more suspicious this is TMJ. Encouraged use of her nightguard 8. Tremor: Will refer to neurology. Appears consistent with essential tremor and her mother has similar history 9. Hypertriglyceridemia : Will work at diet and plan to recheck lipids around the time of next visit 11/20/2024 Primary osteoarthrit is of both knees (ICD-10 - M17.0) 1. Routine healthcare maintenance: Colonoscopy was done in 2021 and is next due in 2031. Mammogram is due next month. She is up-to-date with [employer]. She is up-to-date with fasting blood work 2. Hypertension: Suboptimal diastolic. Will trial switching hydrochlorothiazide to losartan 25 mg and continue current metoprolol. Will recheck in 6 weeks 3. Obesity: Encouraged efforts at diet and weight loss. A1c was normal 4. Osteoarthritis of the knees: She is following with Dr. Culp at orthopedics and has had some benefit from injection therapy 5. GERD: Stable with omeprazole. She has recurrent symptoms with skipping 1 day so we will maintain present dosing 6. History of PSVT: Stable on current metoprolol 7. Headache: Right temporal. Will check a sed rate to rule out temporal arteritis but I am more suspicious this is TMJ. Encouraged use of her nightguard 8. Tremor: Will refer to neurology. Appears consistent with essential tremor and her mother has similar history 9. Hypertriglyceridemia : Will work at diet and plan to recheck lipids around the time of next visit 11/20/2024 Chronic GERD (ICD-10 - K21.9) 1. Routine healthcare maintenance: Colonoscopy was done in 2021 and is next due in 2031. Mammogram is due next month. She is up-to-date with [employer]. She is up-to-date with fasting blood work 2. Hypertension: Suboptimal diastolic. Will trial switching hydrochlorothiazide to losartan 25 mg and continue current metoprolol. Will recheck in 6 weeks 3. Obesity: Encouraged efforts at diet and weight loss. A1c was normal 4. Osteoarthritis of the knees: She is following with Dr. Culp at orthopedics and has had some benefit from injection therapy 5. GERD: Stable with omeprazole. She has recurrent symptoms with skipping 1 day so we will maintain present dosing 6. History of PSVT: Stable on current metoprolol 7. Headache: Right temporal. Will check a sed rate to rule out temporal arteritis but I am more suspicious this is TMJ. Encouraged use of her nightguard 8. Tremor: Will refer to neurology. Appears consistent with essential tremor and her mother has similar history 9. Hypertriglyceridemia : Will work at diet and plan to recheck lipids around the time of next visit 11/20/2024 PSVT (paroxysmal supraventricular tachycardia) (ICD-10 - I47.10) 1. Routine healthcare maintenance: Colonoscopy was done in 2021 and is next due in 2031. Mammogram is due next month. She is up-to-date with [employer]. She is up-to-date with fasting blood work 2. Hypertension: Suboptimal diastolic. Will trial switching hydrochlorothiazide to losartan 25 mg and continue current metoprolol. Will recheck in 6 weeks 3. Obesity: Encouraged efforts at diet and weight loss. A1c was normal 4. Osteoarthritis of the knees: She is following with Dr. Culp at orthopedics and has had some benefit from injection therapy 5. GERD: Stable with omeprazole. She has recurrent symptoms with skipping 1 day so we will maintain present dosing 6. History of PSVT: Stable on current metoprolol 7. Headache: Right temporal. Will check a sed rate to rule out temporal arteritis but I am more suspicious this is TMJ. Encouraged use of her nightguard 8. Tremor: Will refer to neurology. Appears consistent with essential tremor and her mother has similar history 9. Hypertriglyceridemia : Will work at diet and plan to recheck lipids around the time of next visit 11/20/2024 Headache, unspecifie d (ICD-10 - R51.9) 1. Routine healthcare maintenance: Colonoscopy was done in 2021 and is next due in 2031. Mammogram is due next month. She is up-to-date with [employer]. She is up-to-date with fasting blood work 2. Hypertension: Suboptimal diastolic. Will trial switching hydrochlorothiazide to losartan 25 mg and continue current metoprolol. Will recheck in 6 weeks 3. Obesity: Encouraged efforts at diet and weight loss. A1c was normal 4. Osteoarthritis of the knees: She is following with Dr. Culp at orthopedics and has had some benefit from injection therapy 5. GERD: Stable with omeprazole. She has recurrent symptoms with skipping 1 day so we will maintain present dosing 6. History of PSVT: Stable on current metoprolol 7. Headache: Right temporal. Will check a sed rate to rule out temporal arteritis but I am more suspicious this is TMJ. Encouraged use of her nightguard 8. Tremor: Will refer to neurology. Appears consistent with essential tremor and her mother has similar history 9. Hypertriglyceridemia : Will work at diet and plan to recheck lipids around the time of next visit 11/20/2024 Tremor (ICD-10 - R25.1) 1. Routine healthcare maintenance: Colonoscopy was done in 2021 and is next due in 2031. Mammogram is due next month. She is up-to-date with [employer]. She is up-to-date with fasting blood work 2. Hypertension: Suboptimal diastolic. Will trial switching hydrochlorothiazide to losartan 25 mg and continue current metoprolol. Will recheck in 6 weeks 3. Obesity: Encouraged efforts at diet and weight loss. A1c was normal 4. Osteoarthritis of the knees: She is following with Dr. Culp at orthopedics and has had some benefit from injection therapy 5. GERD: Stable with omeprazole. She has recurrent symptoms with skipping 1 day so we will maintain present dosing 6. History of PSVT: Stable on current metoprolol 7. Headache: Right temporal. Will check a sed rate to rule out temporal arteritis but I am more suspicious this is TMJ. Encouraged use of her nightguard 8. Tremor: Will refer to neurology. Appears consistent with essential tremor and her mother has similar history 9. Hypertriglyceridemia : Will work at diet and plan to recheck lipids around the time of next visit 11/20/2024 Hypertriglyceridemia (ICD-10 - E78.1) 1. Routine healthcare maintenance: Colonoscopy was done in 2021 and is next due in 2031. Mammogram is due next month. She is up-to-date with [employer]. She is up-to-date with fasting blood work 2. Hypertension: Suboptimal diastolic. Will trial switching hydrochlorothiazide to losartan 25 mg and continue current metoprolol. Will recheck in 6 weeks 3. Obesity: Encouraged efforts at diet and weight loss. A1c was normal 4. Osteoarthritis of the knees: She is following with Dr. Culp at orthopedics and has had some benefit from injection therapy 5. GERD: Stable with omeprazole. She has recurrent symptoms with skipping 1 day so we will maintain present dosing 6. History of PSVT: Stable on current metoprolol 7. Headache: Right temporal. Will check a sed rate to rule out temporal arteritis but I am more suspicious this is TMJ. Encouraged use of her nightguard 8. Tremor: Will refer to neurology. Appears consistent with essential tremor and her mother has similar history 9. Hypertriglyceridemia : Will work at [employer] and plan to recheck lipids around the time of next visit PLAN OF TREATMENT Medication Medication Name Sig Start Date Stop Date Notes Metoprolol Succinate ER 200 MG 1 tablet Orally Once a day hydroCHLOROthiazide 25 MG 1 tablet in th e morning Orally Once a day Losartan Potassium 25 MG 1 tablet Orally Once a day for 90 day(s) 11/20/2024 Referrals Referral Date Details HOLD FOR LOCKED NOTE Appt New patient, RHONDA CABABrittanyHIGINIO Next Appt Details Follow Up: 3 Months, Reason: Progress Notes * Examination Category Sub-Category Detail Notes Category Not es General Examination HEENT: PERRLA, EOMI bilaterally, nose clear Tenderness to palpation over the right TMJ Neck: supple, no lymphaden opathy, no thyromegaly Heart: RSR, normal S1S2 Lungs: clear to auscultatio n Abdomen: soft, non tender/non distended, no rebound tenderness, no guarding or rigidity Extremities: no edema General Appearance no apparent distress , pleasant, obese Skin: normal, no rash Neuro alert and oriented x3, gait normal Tremor of outstretched hands left greater than right Oral cavity: no lesions Peripheral pulses: Bilateral radial pre sent, Bilateral posterior tibial present, BilateralCarotids present No Bruits Back: no CVA tenderness, s traight leg raise normal, , no spinal tenderness Lymphatics No nodes in neck Psych: oriented X 3, affect normal History and Physical Notes * HPI (History of Present Illness) Category Sub-Category Detail Notes Category Not es Depression Screening PHQ-2 (2015 Edition) Little interest or pleasure in doing things?: Not at all Feeling down, depressed, or hopeless?: N ot at all Total Score: 0 Consultation Request Notes Referral Date Referring Provider Referred Provider Not es 11/20/2024 CHARLINE ZUNIGA MOHAMMAD HOLD FOR LOCKED NOTE Appt New patient
--- OUTSIDE RECORDS SUMMARY | 2024-12-31 02:52 | XMS_ITS ---
Author Organization [facility] Address [address], [place] [id number] Care Team Providers Care Histopathology Technician Name Role Phone CHARLINE ZUNIGA Primary Care Provider REASON FOR VISIT (w-c/b-lm-12/31+01/01) Reschedule Appointment Request Encounters Encounter Location Date Provider Diagnosis [facility] [address] [place] [id number] 12/31/2024 CHARLINE ZUNIGA PLAN OF TREATMENT No Information
--- OUTSIDE RECORDS SUMMARY | 2024-12-31 02:52 | XMS_ITS ---
Author Organization [facility] Address [address], [place] [id number] Care Team Providers Care Loans Officer Name Role Phone CHARLINE ZUNIGA Primary Care Provider [phone] REASON FOR VISIT Cancel Appointment Request Encounters Encounter Location Date Provider Diagnosis [facility] [address] [place] [address] 12/31/2024 CHARLINE ZUNIGA PLAN OF TREATMENT No Information
--- OUTSIDE RECORDS SUMMARY | 2025-01-04 09:45 | XMS_ITS ---
Author Organization [facility] Address [address] [place], [place] [phone] Care Team Providers Care Military Police Officer Name Role Phone CHARLINE ZUNIGA Primary Care Provider REASON FOR VISIT 41/ 6w Encounters Encounter Location Date Provider Diagnosis [facility] [address] [place] [address] 01/04/2025 CHARLINE ZUNIGA PLAN OF TREATMENT No Information
--- OUTSIDE RECORDS SUMMARY | 2025-02-14 09:22 | XMS_ITS ---
Author Organization [facility] Address [address] [place], [place] [phone] Care Team Providers Care Spouting Installer Name Role Phone CHARLINE ZUNIGA Primary Care Provider REASON FOR VISIT New Referral Request Encounters Encounter Location Date Provider Diagnosis [facility] [address] [place] [address] 02/14/2025 CHARLINE ZUNIGA PLAN OF TREATMENT No Information
--- OUTSIDE RECORDS SUMMARY | 2025-02-14 12:25 | XMS_ITS ---
Author Organization [facility] Address [address] [place], [place] [phone] Care Team Providers Care Retinal Angiographer Name Role Phone CHARLINE ZUNIGA Primary Care Provider REASON FOR VISIT RE:New Referral Request Encounters Encounter Location Date Provider Diagnosis [facility] [address] [place] [address] 02/14/2025 CHARLINE ZUNIGA Rib pain on left side R07.89 ASSESSMENTS Encounter Date Diagnosis Assessment Notes Treatment Notes Treatment Clinical Notes Section Notes 02/14/2025 Rib pain on left side (ICD-10 - R07.89) PLAN OF TREATMENT Pending Test Test Name Order Date XR Ribs Left Complete with PA Chest 01/2025
--- OUTSIDE RECORDS SUMMARY | 2025-02-15 03:55 | XMS_ITS ---
Author Organization [facility] Address [address], [place] [phone] Care Team Providers Care Profile Saw Setup Operator Name Role Phone CHARLINE ZUNIGA Primary Care Provider REASON FOR VISIT RE:New Referral Request Encounters Encounter Location Date Provider Diagnosis [facility] [address] [place] [address] 02/15/2025 CHARLINE ZUNIGA PLAN OF TREATMENT No Information
--- OUTSIDE RECORDS SUMMARY | 2025-02-15 14:10 | XMS_ITS ---
Author Organization [facility] Address [address] [place], [place] [phone] Care Team Providers Care Automobile Body Repair Supervisor Name Role Phone CHARLINE ZUNIGA Primary Care Provider REASON FOR VISIT RE:RE:New Referral Request Encounters Encounter Location Date Provider Diagnosis [facility] [address] [place] [address] 02/15/2025 CHARLINE ZUNIGA PLAN OF TREATMENT No Information
--- OUTSIDE RECORDS SUMMARY | 2025-03-07 07:52 | XMS_ITS ---
Author Organization [facility] Address [address] [place], [place] [phone] Care Team Providers Care Jointer Machine Operator Name Role Phone CHARLINE ZUNIGA Primary Care Provider REASON FOR VISIT script for wt loss MEDICATIONS Medication SIG (Take, Route, Fr equency, Duration) Notes Start Date End Date Status Zepbound 2.5 MG/0.5ML as directed Subcut aneous every 7 days for 28 days 03/07/2025 Active Encounters Encounter Location Date Provider Diagnosis [facility] [address] [place] [address] 03/07/2025 CHARLINE ZUNIGA PLAN OF TREATMENT Medication Medication Name Sig Start Date Stop Date Notes Zepbound 2.5 MG/0.5ML as directed Subcut aneous every 7 days for 28 days 03/07/2025
--- NOTE | ~2025-03-13 | CT_ITS ---
EXAMINATION: CT ABDOMEN PELVIS WITH IV CONTRAST HISTORY: LLQ pain COMPARISON: Comparison is made with the prior examination dated 01/02/2019. TECHNIQUE: CT scan of the abdomen and pelvis was performed following administration of 85 mL Omnipaque 350 using standard departmental protocol. Coronal and sagittal reformatted images were generated and reviewed. Oral contrast material was not administered at the request of the referring physician. This CT exam was performed with one or more of the following dose reduction techniques: automated exposure control, adjustment of the mA and/or kV according to patient size, use of iterative reconstruction technique. DLP: 995 mGy-cm FINDINGS: LOWER CHEST: The visualized lung bases are clear. There is no pleural effusion. CARDIOVASCULATURE: The heart is normal in size. There is no pericardial effusion. LIVER: The liver is normal in size and contour. No liver mass is identified. The hepatic and portal veins are patent. GALLBLADDER / BILE DUCTS: The gallbladder is unremarkable. There is no intra or extrahepatic biliary ductal dilatation. SPLEEN: The spleen is normal in size. No focal splenic lesion is identified. PANCREAS: The pancreas is unremarkable in appearance. ADRENAL GLANDS: Within normal limits. KIDNEYS/RETROPERITONEUM: There are probable punctate nonobstructing bilateral renal calculi. There is scarring on the left. There is no hydronephrosis. No renal masses are identified. LYMPH NODES: No abdominal or pelvic lymphadenopathy. VASCULATURE: The abdominal aorta is normal in caliber. MESENTERY/PERITONEUM: No free fluid. No masses. There is no free intraperitoneal gas. STOMACH: The stomach is collapsed, limiting evaluation. SMALL BOWEL: The small bowel is normal in caliber. COLON: There is a moderate amount of stool throughout the colon. APPENDIX: Normal. URINARY BLADDER/PELVIC ORGANS: The urinary bladder is unremarkable. The patient is status post hysterectomy. BONES / SOFT TISSUES: No suspicious bony or soft tissue abnormalities. CT/CT abdomen pelvis w IV con IMPRESSION: 1. Probable bilateral nephrolithiasis as described. Left renal scarring. 2. Moderate amount of stool throughout the colon. Electronically signed by: Rhys Ro MD 03/13/2025 12:54 PM [facility] [place] [place]
[2025-03-13 10:12] VITALS: BP 160/80; PULSE 84; RESP 18; TEMP 36.6; O2SAT 98; BMI 37.5
--- NOTE | 2025-03-13 10:14 | ED.GENADULT ---
HPI - General Adult General Chief complaint: Abdominal Pain Stated complaint: Lower Left Abd Pain Time Seen by Provider: 03/13/25 10:36 Source: patient Mode of arrival: ambulatory Limitations: no limitations History of Present Illness ED Provider: MADIE LAKHANI PA-C HPI narrative: 55 year old female with pmhx significant for IBS and nephrolithiasis presents to the ED today for evaluation of LLQ abdominal pain x1 week. Pain is intermittent, dull, occasionally sharp. Pain radiates to left back. No change in bowel movements. No urinary symptoms. Reports colonoscopy 5 years ago - no known abnormal finding. Denies fever, chills. Surgical history includes partial hysterectomy - still has both ovaries. Related Data Home Medications ?Medication ?Instructions ?Recorded ?Confirmed hydrochlorothiazide 25 mg tablet 25 mg PO DAILY 07/23/20 01/15/25 metoprolol succinate 200 mg 200 mg PO DAILY 07/23/20 01/15/25 tablet,extended release 24 hr omeprazole 20 mg capsule,delayed 20 mg PO DAILY 07/23/20 01/15/25 release cholecalciferol (vitamin D3) 50 50 mcg PO DAILY 07/28/21 01/15/25 mcg (2,000 unit) capsule escitalopram oxalate 20 mg tablet 20 mg PO DAILY 02/24/24 01/15/25 bsvcinblss-iehncwnzzdwgh-bnyldjfv 1 cap PO DAILY 04/19/24 01/15/25 50 mg-300 mg-40 mg capsule Previous Rx's ?Medication ?Instructions ?Recorded gabapentin 100 mg capsule 100 mg PO Q8H #90 caps 01/15/25 docusate sodium 100 mg capsule 100 mg PO DAILY PRN constipation 03/13/25 (Colace) #20 caps polyethylene glycol 3350 17 17 g PO DAILY PRN constipation 03/13/25 gram/dose oral powder (Miralax) #510 grams Allergies Allergy/AdvReac Type Severity Reaction Status Date / Time metronidazole (From Flagyl) Allergy Unknown Verified 03/13/25 10:14 Review of Systems Review of Systems: Yes all other systems are reviewed and are negative PMFSH Past Medical History Attestation statement: The following information was validated with the patient. Source: old records reviewed and nursing notes reviewed Medical History IBS (irritable bowel syndrome) GERD (gastroesophageal reflux disease) Anxiety History of febrile seizure On beta jeremiah at home Cluster headaches Migraines HTN (hypertension) Surgical History Hx of dilation and curettage Hx of arthroscopy of right knee Hx of colonoscopy History of foot surgery History of tonsillectomy Family History Family History Maternal Aunt Breast cancer Paternal Aunt Breast cancer Social History Social History Are you a primary manager urgent care to a significant other at home: No Do you presently have visiting nurse or other home services: No Alcohol intake: current Alcohol intake frequency: holidays/special occasions only Comment: cramping Patient Tobacco Use Status: Never used Tobacco Current occupational status: employed 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 Skin: Warm, dry, intact. No rashes or lesions. Head: Normocephalic, atraumatic. EENT: Hearing is intact b/l. Conjunctiva clear. Sclera is anicteric. PERRLA. EOM intact. Moist mucous membranes.? Neck: Supple without LAD Cardiac: Chest wall symmetric. RRR Lungs: Normal respiratory effort without accessory muscle use. CTA bilaterally Abdomen: soft, non-tender, non-distended. No rebound tenderness or guarding. Positive BS x4. no cvat. Back: No midline spinous or paraspinal tenderness. No step off deformity. Ext: Upper and lower extremities atraumatic, without tenderness, deformity, swelling or erythema Neuro: AOx3. Normal speech. Ambulating with steady gait. Course Course Course Narrative: RME: 55 yold female presents to the ED for Left lower quadrant abdominal pain. patient denies any symptoms. labs ordered Reevaluation(s) Reevaluation #1: CBC showing mild leukopenia to 4.6. No anemia, H and H stable. Chemistry without acute electrolyte abnormality requiring intervention. Renal function around baseline. Liver function WNL. Urine appears contaminated, will await the culture. CT abdomen/ pelvis showing moderate amount of stool throughout the colon, no bowel obstruction. Bilateral nephrolithiasis, no obstructing ureteral stones. Discussed all workup results with patient. Will start her on bowel regimen. Patient has remained stable throughout ED visit today. Discussed worrisome signs and symptoms and when to return to the ED. All questions answered at this time. Patient is agreeable with disposition and stable for discharge. Medications Administered Discontinued Medications Generic Name Dose Route Start Last Admin Trade Name Freq PRN Reason Stop Dose Admin Iohexol 100 ml 03/13/25 12:28 03/13/25 12:29 Iohexol 350 Mg/Ml 100 Ml Infus..Btl IV 03/13/25 12:29 85 ml ONCE ONE Administration Ketorolac Tromethamine 15 mg 03/13/25 11:01 03/13/25 11:40 Ketorolac Tromethamine 15 Mg/Ml Vial IVPUSH 03/13/25 11:02 15 mg ONCE ONE Administration Medical Decision Making Medical Decision Making [facility] Narrative: 55 year old female with pmhx significant for IBS and nephrolithiasis presents to the ED today for evaluation of LLQ abdominal pain x1 week. hypertensive, vitals are otherwise wnl. she is well appaering, in NAD. lying comfortably on the exam bed. on exam, abdomen is soft, non-tender, non-distended. No rebound tenderness or guarding. Positive BS x4. no cvat. Differential diagnosis includes constipation, UTI, renal colic, nephrolithiasis, hydronephrosis, diverticulosis, diverticulitis, colitis, hernia Plan for labs, imaging, and re-evaluation. Differential Diagnosis Differential Diagnoses: The differential diagnosis associated with the presentation includes as above Admission/Observation not indicated. Lab Data [facility] Lab Attestation statement: I reviewed the patient's lab results. as above. 03/13/25 10:24 03/13/25 10:24 Labs: Lab Results 03/13/25 Range/Units 10:24 WBC 4.6 L (4.8-10.8) X10*3/uL RBC 4.97 (4.20-5.50) X10*6/uL Hgb 14.2 (12.0-16.0) g/dl Hct 43.4 (37.0-47.0) % MCV 87.3 (80.0-98.0) fL MCH 28.6 (27.0-33.0) pg MCHC 32.7 (31.0-35.0) g/dl RDW 13.2 (11.0-16.0) % Plt Count 287 (160-400) X10*3/uL MPV 9.2 L (9.4-12.3) fL Immature Gran % (Auto) 0.2 (0.0-0.4) % Neut % (Auto) 51.8 (45-73) % Lymph % (Auto) 34.1 (20-40) % Louisa % (Auto) 10.2 (2-11) % Eos % (Auto) 2.8 (0-4) % Baso % (Auto) 0.9 (0-2) % Lymph # (Auto) 1.6 (1.2-4.9) X10*3/uL Louisa # (Auto) 0.5 (0.1-1.2) X10*3/uL Eos # (Auto) 0.1 (0.0-0.4) X10*3/uL Baso # (Auto) 0.0 (0.0-0.2) X10*3/uL Abs Immat Gran (auto) 0.01 (0.00-0.03) X10*3/uL Absolute Neuts (auto) 2.4 (2.0-8.3) x10*3/uL Absolute Nucleated RBC 0.000 (0.0-0.012) X10*3/uL Nucleated RBC % (auto) 0.0 (0.0-0.2) /100WBC Sodium 141 (135-145) mmol/L Potassium 3.9 (3.3-5.1) mmol/L Chloride 104 (96-108) mmol/L Carbon Dioxide 30 H (22-29) mmol/L Anion Gap 11 L (12-20) BUN 17 H (9-16) mg/dL Creatinine 0.75 (0.5-1.4) mg/dL Estim Creat Clear Calc 111.2 Estimated GFR > 60 Random Glucose 92 (60-115) mg/dL Calcium 9.3 D (8.4-10.2) mg/dL Total Bilirubin 0.4 (0.0-1.0) mg/dL AST 24 (5-31) U/L ALT 25 (0-31) U/L Alkaline Phosphatase 115 (39-117) U/L Total Protein 7.3 (6.5-8.0) g/dL Albumin 4.5 (3.5-5.0) g/dL Beta HCG, Quant 3 mIU/mL Urine Color Yellow Urine Appearance Clear Urine pH 7.0 (5.0-9.0) Ur Specific [place] 1.020 (1.005-1.025) Urine Protein Negative (Neg-Trace) mg/dL Urine Glucose (UA) Negative (Negative) mg/dL Urine Ketones Negative (Negative) mg/dL Urine Blood Negative (Negative) Urine Nitrite Negative (Negative) Ur Leukocyte Esterase Small (1+) H (Negative) Urine RBC 0-2 (0-2) /HPF Urine WBC 6-10 H (0-5) /HPF Ur Squamous Epith Cells >20 (0-2) /HPF Urine Bacteria 2+ (None Seen) Hyaline Casts 0-2 (0-2) /LPF Independent Interpretation I performed an independent interpretation of an: CT Scan Interpretation: ct a/p without bowel obstruction Radiology Impression Discussion of test interpretation with radiology: I have reviewed the radiologist's reading. Radiologist Impression: Procedure(s): CT abdomen pelvis w IV con Accession Number(s): [id number] cc: Israel Neal MD; Madie Lakhani~ Report Number: [id number]: Total DLP = 995.00 mGy-cm Reason for Exam: LLQ pain EXAMINATION: CT ABDOMEN PELVIS WITH IV CONTRAST HISTORY: LLQ pain COMPARISON: Comparison is made with the prior examination dated 01/02/2019. TECHNIQUE: CT scan of the abdomen and pelvis was performed following administration of 85 mL Omnipaque 350 using standard departmental protocol. Coronal and sagittal reformatted images were generated and reviewed. Oral contrast material was not administered at the request of the referring physician. This CT exam was performed with one or more of the following dose reduction techniques: automated exposure control, adjustment of the mA and/or kV according to patient size, use of iterative reconstruction technique. DLP: 995 mGy-cm FINDINGS: LOWER CHEST: The visualized lung bases are clear. There is no pleural effusion. CARDIOVASCULATURE: The heart is normal in size. There is no pericardial effusion. LIVER: The liver is normal in size and contour. No liver mass is identified. The hepatic and portal veins are patent. GALLBLADDER / BILE DUCTS: The gallbladder is unremarkable. There is no intra or extrahepatic biliary ductal dilatation. SPLEEN: The spleen is normal in size. No focal splenic lesion is identified. PANCREAS: The pancreas is unremarkable in appearance. ADRENAL GLANDS: Within normal limits. KIDNEYS/RETROPERITONEUM: There are probable punctate nonobstructing bilateral renal calculi. There is scarring on the left. There is no hydronephrosis. No renal masses are identified. LYMPH NODES: No abdominal or pelvic lymphadenopathy. VASCULATURE: The abdominal aorta is normal in caliber. MESENTERY/PERITONEUM: No free fluid. No masses. There is no free intraperitoneal gas. STOMACH: The stomach is collapsed, limiting evaluation. SMALL BOWEL: The small bowel is normal in caliber. COLON: There is a moderate amount of stool throughout the colon. APPENDIX: Normal. URINARY BLADDER/PELVIC ORGANS: The urinary bladder is unremarkable. The patient is status post hysterectomy. BONES / SOFT TISSUES: No suspicious bony or soft tissue abnormalities. CT/CT abdomen pelvis w IV con IMPRESSION: 1. Probable bilateral nephrolithiasis as described. Left renal scarring. 2. Moderate amount of stool throughout the colon. External Record Review External record reviewed: Inpatient record Prescription Management I considered prescription management with: Other ( laxative, stool softener) Social Determinants Patient?s care significantly limited by Social Determinants of Health including: Other Social Determinant of Health Critical Care Time Critical Care Time Critical Care Time: No Discharge Plan Discharge Clinical Impression: Constipation, Bilateral renal stones Patient Disposition: Home, Self-Care Instructions: Constipation (ED) Additional Instructions: You were evaluated in the ED today for week of abdominal pain. Your blood work is reassuring. The CT scan of your abdomen shows multiple small stones to both of your kidneys however there is no obstructing stone. This is unlikely the cause of your discomfort. it also shows that you are fairly constipated. You may take MiraLax and Colace as needed to pass bowel movements. Follow up with your primary care provider. Return with any new or worsening symptoms. In the case of an emergency call 911. Prescriptions: New polyethylene glycol 3350 [Miralax] 17 gram/dose powder 17 g PO DAILY PRN (Reason: constipation) Qty: 510 0RF docusate sodium [Colace] 100 mg capsule 100 mg PO DAILY PRN (Reason: constipation) Qty: 20 0RF No Action escitalopram oxalate 20 mg tablet 20 mg PO DAILY omeprazole 20 mg capsule,delayed release(DR/EC) 20 mg PO DAILY hydrochlorothiazide 25 mg tablet 25 mg PO DAILY metoprolol succinate 200 mg tablet extended release 24 hr 200 mg PO DAILY cholecalciferol (vitamin D3) 50 mcg (2,000 unit) capsule 50 mcg PO DAILY jnhtbbpsih-nskzwiqvnrihh-qzmh 50-300-40 mg capsule 1 cap PO DAILY gabapentin 100 mg capsule 100 mg PO Q8H Qty: 90 3RF Referrals: Israel Neal MD [Primary Care Provider, Internal Medicine] Stand Alone Forms: Work/School Release Interventions: ED Discharge Assessment Last Done: 03/13/25 13:45 Discharge Date/Time: 03/13/25 13:46 Print Language: Ivorian
[2025-03-13 10:27] LABS: MANUAL DIFF FLAG NO
[2025-03-13 10:30] LABS: Hematocrit 43.4 % (37.0-47.0); Hemoglobin 14.2 g/dl (12.0-16.0); Imm Gran Abs Auto 0.01 X10*3/uL (0.00-0.03); Imm Gran Pct Auto 0.2 % (0.0-0.4); Lymphocytes Absolute Auto 1.6 X10*3/uL (1.2-4.9); Mean Corpuscular HGB Conc 32.7 g/dl (31.0-35.0); Mean Corpuscular Hemoglobin 28.6 pg (27.0-33.0); Mean Corpuscular Volume 87.3 fL (80.0-98.0); NRBC Abs Auto 0.000 X10*3/uL (0.0-0.012); NRBC Pct Auto 0.0 /100WBC (0.0-0.2); Platelet Count 287 X10*3/uL (160-400); Red Blood Count 4.97 X10*6/uL (4.20-5.50); White Blood Count 4.6 X10*3/uL (4.8-10.8)
[2025-03-13 10:33] LABS: Appearance Urine Clear; Glucose Urine UA Negative (Negative); PH 7.0 (5.0-9.0); Specific Gravity - Urine 1.020 (1.005-1.025); UMIC TRIGGER UACC YES
[2025-03-13 10:35] LABS: UACC Culture Trigger YES
[2025-03-13 11:09] LABS: Albumin Level 4.5 g/dL (3.5-5.0); Alkaline Phosphatase 115 U/L (39-117); Anion Gap 11 (12-20); Aspartate Amino Transferase 24 U/L (5-31); Blood Urea Nitrogen 17 mg/dL (9-16); Calcium 9.3 mg/dL (8.4-10.2); Carbon Dioxide 30 mmol/L (22-29); Chloride 104 mmol/L (96-108); Creatinine Clr Calc Pharmacy 111.2; Estimated Glomerular Filt Rate > 60; Potassium 3.9 mmol/L (3.3-5.1); Sodium 141 mmol/L (135-145); Total Protein 7.3 g/dL (6.5-8.0)
[2025-03-13 12:18] LABS: Alanine Aminotransferase 25 U/L (0-31)
[2025-03-13] MEDS: iohexoL 350 MG/ML 100 ML INFUS..BTL IV (12:29)
--- OUTSIDE RECORDS SUMMARY | 2025-03-13 12:29 | XMS_ITS | Clinical Summary ---
Author Organization [facility] Address [address] [place] [address] Care Team Providers Care Senior Solutions Engineer Name Role Phone Israel Neal MD Primary Care Provider [phone] Surgical History Surgery Date Site/Laterality Comments TONSILLECTOMY [...] Cancer Screening: P ap Smear 04/26/2021 04/26/2018 Depression Screening 05/09/2024 COVID-19 Vaccine ( - 2023-2 5 season) 2025 Influenza Vaccine (#1) 2025 RSV Immunization Adult Patients (1 - 1-dose 75+ series) 2045 HIB Vaccines Aged Out No longer eligi [...] RESULTING AGENCY - 05/04/2018 5:16 PM EST [id number] THINPREP PAP, IMAGED AND CELL BLOCK: UNSATISFACTORY [...] Recently Relevant to Health Maintenance Care Teams Senior Solutions Engineer Relationship Specialty Start Date End Date Israel Neal MD PCP - General Internal Medicine 03/20/12
--- OUTSIDE RECORDS SUMMARY | 2025-03-13 12:30 | XMS_ITS | Patient Health Record ---
Author Organization [facility] Address [address], [place] [id number] Care Team Providers Care Adult Basic Education Teacher Name Role Phone NADIA CHARLINE Primary Care Provider ALLERGIES Allergen (clinical drug ingredient) Drug/Non Drug Allergy documented on EMR Reaction Allergy Type Onset Date Status metronidazole Flagyl nausea Drug Allergy Act eliezer REASON FOR REFERRAL Reason HOLD FOR LOCKED NOTE Appt New patient Diagnosis 1 Tremor (R25.1) Referral Organization [facility] Referring Provider First Name CHARLINE Referring Provider Last Name NADIA Referring Provider Speciality Internal M edicine Referred Provider RHONDA AVALOS Referred Provider Specialty Neurology General Notes HOLD FOR LOCKED NOTE NADIA JOHN D 11/20/2024 07:23:18 PM > locked Referral Priority Urgent MEDICATIONS Medication SIG (Take, Route, Frequency, Duration) Notes Start Date End Date Status Escitalopram Oxalate 20 MG 1 tablet Oral ly Once a day for 90 days Active Zepbound 2.5 MG/0.5ML as directed Subcutaneous every 7 days for 28 days 03/07/2025 Active Metoprolol Succinate ER 200 MG 1 tablet Orally Once a day Active Gabapentin 100 MG 1 capsule Orally Onc e a day Active hydroCHLOROthiazide 25 MG TAKE 1 TABLET BY MOUTH EVERY DAY for 90 Active Zdwsuwszuw-KEAS-Pwkkfjpk 50-300-40 MG 1 capsule as needed Orally every 8 hrs prn for 30 day(s) 07/18/2023 Active Ibuprofen 800 MG 1 tablet with food o r milk as needed Orally every 8 hrs Active Losartan Potassium 25 MG 1 tablet Orally Once a day for 90 day(s) 11/20/2024 Active Omeprazole 20 MG TAKE 1 CAPSULE BY MOUTH DAILY BEFORE MEALS for 90 Active IMMUNIZATIONS Vaccine Route Administration Date Status Comme nts Afluria IM Intramuscular 04/15/2023 Administered Influenza, Fluarix Quad Unknown 02/13/2014 Administered TDAP IM Intramuscular 07/27/2017 Administered SOCIAL HISTORY Tobacco Use: Social History Observation Description Date Details (start date - stop date) Never Smoker NA - NA Sex Assigned At : Social History Observation Description Sex Assigned At Unknown Smoking Question Answer Notes Are you a: never smoker PROBLEMS Problem Type ICD Code Onset Dates Problem Status W/U Status Risk SNOMED Code Notes Problem Hypertriglyceridemia (E78.1) Active confirmed 298884300 Problem Other chronic pain (G89.29) Active confirmed 82944854 Problem Primary osteoarthrit is of both knees (M17.0) Active confirmed 557482694 Problem Chronic GERD (K21.9) Active confirmed 2 65195760 Problem Anxiety, generalized (F41.1) Active confirmed 95206571 Problem Obesity due to exces s calories with serious comorbidity, unspecified classification (E66.09) Active confirmed 851475176 Problem PSVT (paroxysmal supraventricular tachycardia) (I47.10) Active confirmed 73998444 Problem Essential (primary) hypertension (I10) 010 Active confirmed Essential hypertension (10823664) VITAL SIGNS Blood pressure diastolic 86 mm Hg 11/20/2024 Height 66.50 in 11/20/2024 Blood pressure systolic 118 mm Hg 11/20/2024 Weight 247.0 lbs 11/20/2024 BMI 39.27 kg/m2 11/20/2024 Encounters Encounter Location Date Provider Diagnosis [address] [address] 06/08/[address] [address] 07/18/[address] [address] 07/18/[address] [address] 07/19/2024 CHARLINE NADIA Arthralgia of right temporomandibular joint M26.621 and Essential (primary) hypertension I10 [address] [address] 07/19/2024 [facility] [address] [place] [phone] 10/15/2024 [facility] [address] [place] [phone] 10/15/2024 [facility] [address] [address] 10/18/[address] [address] 10/30/[address] [address] 10/30/2024 [facility] Essential (primary) hypertension I10 ; Obesity due to excess calories with serious comorbidity, unspecified classification E66.09 and Encounter for general adult medical examination without abnormal findings Z00.[address] [address] 11/20/2024 [facility] Encounter for genera l adult medical examination with abnormal findings Z00.01 ; Essential (primary) hypertension I10 ; Obesity due to excess calories with serious comorbidity, unspecified classification E66.09 ; Primary osteoarthritis of both knees M17.0 ; Chronic GERD K21.9 ; PSVT (paroxysmal supraventricular tachycardia) I47.10 ; Headache, unspecified R51.9 ; Tremor R25.1 and Hypertriglyceridemia E78.1 [facility] [address] [place] [id number] 12/31/[address] [address] 12/31/2024 [facility] [address] [address] 01/04/[address] [address] 02/14/[address] [address] 02/14/2025 [facility] Rib pain on left douglas e R07.[address] [address] 02/15/[address] [address] 02/15/2025 [facility] [address] [place] [address] 03/07/2025 [facility] Encounter Date Diagnosis Assessment Notes Treatment Notes Treatment Clinical Notes Section Notes 07/19/2024 Essential (primary) hypertension (ICD-10 - I10) 1. Right TMJ arthralgia: Patient will use naproxen twice a day with food for the next few weeks. She will resume wearing her nightguard. 2. Hypertension: Mildly elevated today. She has a history of whitecoat elevation. She will collect some readings at the hospital when she is at work and forward them to me. We will book a physical for the summer07/19/2024 Arthralgia of right temporomandibular joint (ICD-10 - M26.621) CancelRx Response got Denied on 2024-07-19 08:57:55 for 'Naproxen 500 MG Tablet'Pha rmacy Notes: other 1. Right TMJ arthralgia: Patient will use naproxen twice a day with food for the next few weeks. She will resume wearing her nightguard. 2. Hypertension: Mildly elevated today. She has a history of whitecoat elevation. She will collect some readings at the hospital when she is at work and forward them to me. We will book a physical for the summer11/20/2024 Encounter for genera adult medical examination with abnormal findings (ICD-10 - Z00.01) 1. Routine healthcare maintenance: Colonoscopy was done in 2021 and is next due in 2031. Mammogram is due next month. She is up-to-date with [employer]. She is up-to-date with fasting blood work [...] lipids around the time of next visit 10/30/2024 Essential (primary) hypertension (ICD-10 - I10) 10/30/2024 Obesity due to exces s calories with serious comorbidity, unspecified classification (ICD-10 - E66.09) 02/14/2025 Rib pain on left douglas e (ICD-10 - R07.89) 11/20/2024 Essential (primary) hypertension (ICD-10 - I10) 1. Routine healthcare maintenance: Colonoscopy was done in 2021 and is next due in 2031. Mammogram is due next month. She is up-to-date with [employer]. She is up-to-date with fasting blood work [...] lipids around the time of next visit 10/30/2024 Encounter for genera l adult medical examination without abnormal findings (ICD-10 - Z00.00) 11/20/2024 Obesity due to exces s calories with serious comorbidity, unspecified classification (ICD-10 - E66.09) 1. Routine healthcare maintenance: Colonoscopy was done in 2021 and is next due in 2031. Mammogram is due next month. She is up-to-date with [employer]. She is up-to-date with fasting blood work [...] due next month. She is up-to-date with [employer]. She is up-to-date with fasting blood work [...] due next month. She is up-to-date with [employer]. She is up-to-date with fasting blood work [...] due next month. She is up-to-date with [employer]. She is up-to-date with fasting blood work [...] due next month. She is up-to-date with [employer]. She is up-to-date with fasting blood work [...] due next month. She is up-to-date with [employer]. She is up-to-date with fasting blood work [...] due next month. She is up-to-date with [employer]. She is up-to-date with fasting blood work [...] time of next visit PLAN OF TREATMENT Pending Test Test Name Order Date Exercise nuclear stress test 04/15/2023 Insurance Providers Payer Name Payer Address Payer Phone Subscriber Number Group Number Insured Name Patient Relationship to Insured Coverage Start Date Coverage End Date [employer] [address] [address] [place] [address] [id number] MAULIK JEFF Self - patient is the insured 3 MEDICAL (GENERAL) HISTORY Medical History History ICD Code Disease : Nephrolithiasis, Disease : Tachycardia, Hypertension, Problems: Migraine, Added Date: 01/27/20, Onset Date: 09/10/2009:Active Problems: Paroxysmal suprave ntricular tachycardia, Added Date: 01/26/2015, Onset Date: 08/27/2009:Active Endometriosis Surgical History Surgery Date(Month/Year) meniscus tear left knee [address] Endometrio sis Jun 2024 Disease : Uterine polyp, Sx_Procedure : D and C Hospitalization History Reason Date(Month/Year) [facility] ER- Left knee injury at work 11/2024
--- OUTSIDE RECORDS SUMMARY | 2025-03-13 12:30 | XMS_ITS | Patient Health Record ---
Author Organization [facility] Address [address] [place] [address] Care Team Providers Care Chief Deputy Court Clerk Name Role Phone Israel Neal MD Primary Care Provider UnavailFifi Marquis Unavailable [phone] Allergies Allergen (clinical drug ingredient) Drug/Non Drug [...] Contracture of joint of left foot (disorder) (219977239243057) Contracture , left foot (M24.575) Active confirmed Problem Acquired hallux valgus (11888099) Hallux valgus (acquired), left foot (M20.12) Active confirmed Problem Acquired hammer toe of left foot (1948289288390988 ) Hammer toe of left foot (M20.42) [...] X ray : Foot, right 3V 02/06/2013 87250, N4450-BGMEW/INJECT, JOINT/BURSA 1 06/18/2012 41169, F5879-PQYWZ/INJECT, JOINT/BURSA 0 10/25/2013 23394, K4318-APADW/INJECT, JOINT/BURSA 1 06/30/2014 86204, L5230-KSWCS/INJECT, JOINT/BURSA 0 05/16/2015 77337, M8585-ZCQYW/INJECT, JOINT/BURSA 1 40813, J0702- Neuroma/Injection 02/27/20 14 Insurance Providers Payer Name Payer Address Payer Phone Subscriber Number Group Number Insured Name Patient Relationship to Insured Coverage Start Date Coverage End Date Blue Benefits [address] [address] [place] [address] [id number] Radha Jeff Self - patient is the insured Medical (General) History Medical History History ICD Code anxiety high blood pressure chicken pox Headaches/Migraines Joint implants/screws Surgical History Surgery Date(Month/Year) bunionectomy, left foot 02/1988 torn miniskus 04/2014 bunionectomy, right foot 2017 tonsillectomy 1975 Meniscus repair, right knee 2016 Fernando Man 2nd, Tenotomy/Capsulot isabel Left 07/22/2022 Hospitalization History Reason Date(Month/Year) [facility] for a 3 day stay, f or chest pain 04/2013
--- OUTSIDE RECORDS SUMMARY | 2025-03-13 12:30 | XMS_ITS | Clinical Summary ---
Author Organization [facility] Address [address] [id number] Care Team Providers Care Payment Processor Name Role Phone Israel Neal MD Primary [...] age to complete this topic Care Teams Payment Processor Relationship Specialty Start Date End Date Israel Neal MD PCP - General Internal Medicine 09/06/18
--- OUTSIDE RECORDS SUMMARY | 2025-03-13 12:31 | XMS_ITS | Patient Health Record ---
Author Organization [facility] Address [address] [place] [address] Care Team Providers Care Building Custodial Supervisor Name Role Phone Israel Neal MD Primary [...] at 5:00 p.m. the day before the procedure; Duration: 1 day 01/02/2020 Active Apple Cider Vinegar [...] Problem Status W/U Status Risk Notes Problem Colon cancer screening (406073596) Colon cancer screening (Z12.11) Active confirmed Problem Pre-procedure evaluation check (011652284) Encounter for other preprocedural examination (Z01.818) Active confirmed Problem Gastroesophageal reflux disease without esophagitis (961095419) Gastroesophageal reflux disease without esophagitis (K21.9) Active confirmed Plan Of Treatment Future Test Test Name Order Date COLONOSCOPY 01/02/2020 Insurance Providers Payer Name Payer Address Payer Phone Subscriber Number Group Number Insured Name Patient Relationship to Insured Coverage Start Date Coverage End Date [employer] [place] [address] [address] [place] [address] [id number] MAULIK YEPEZ Self - patient is the insured Medical (General) History Medical History History ICD Code hypertension headaches (migraines) PSVT gastroesophageal reflux disease anxiety Surgical History Surgery Date(Month/Year) bunions removed on each foot 2016 tonsillectomy and adenoidectomy
[2025-03-13 12:53] VITALS: BP 145/77; PULSE 61; RESP 18; TEMP 36.5; O2SAT 99
[2025-03-13 13:45] VITALS: BP 145/77; PULSE 61; RESP 18; TEMP 36.5; O2SAT 99
== END 2025-03-13 13:46 | disposition home or self-care (01) ==
PROVIDERS: Physician Assistant; Emergency Provider Emergency Medicine; PCP Internal Medicine
DX: K59.00 Constipation, unspecified (principal); N20.0 Calculus of kidney; I10 Essential (primary) hypertension; K21.9 Gastro-esophageal reflux disease without esophagitis
CPT/HCPCS: 36415; 74177; 80053; 81001; 84702; 85025; 87086; 96374; 99284; 99285; J1885; Q9967

== ENCOUNTER → 2025-03-13 11:01 | Outpatient (BNV) | payer OTHER, SELFPAY | PROVIDERS: Emergency Provider Emergency Medicine; PCP Internal Medicine; Visit Provider Radiology Diagnostic Radiology | DX: N28.89 Other specified disorders of kidney and ureter (principal) | CPT/HCPCS: 74177 ==

== ENCOUNTER 2025-03-28 07:58 | Outpatient (AMB) | payer OTHER, SELFPAY ==
--- OUTSIDE RECORDS SUMMARY | 2025-02-15 03:55 | XMS_ITS ---
Author Organization [facility] Address [address] [place], [place] [phone] Care Team Providers Care Line Service Technician Name Role Phone CHARLINE ZUNIGA Primary Care Provider REASON FOR VISIT RE:New Referral Request Encounters Encounter Location Date Provider Diagnosis [facility] [address] [place] [address] 02/15/2025 CHARLINE ZUNIGA PLAN OF TREATMENT No Information
--- OUTSIDE RECORDS SUMMARY | 2025-02-15 14:10 | XMS_ITS ---
Author Organization [facility] Address [address] [place], [place] [phone] Care Team Providers Care Mainframe Systems Engineer Name Role Phone CHARLINE ZUNIGA Primary Care Provider REASON FOR VISIT RE:RE:New Referral Request Encounters Encounter Location Date Provider Diagnosis [facility] [address] [place] [address] 02/15/2025 CHARLINE ZUNIGA PLAN OF TREATMENT No Information
--- OUTSIDE RECORDS SUMMARY | 2025-03-07 07:52 | XMS_ITS ---
Author Organization [facility] Address [address] [place], [place] [phone] Care Team Providers Care Ribbon Inker Name Role Phone CHARLINE ZUINGA Primary Care Provider [phone] REASON FOR VISIT script for wt loss MEDICATIONS Medication SIG (Take, Route, Fr equency, Duration) Notes Start Date End Date Status Zepbound 2.5 MG/0.5ML as directed Subcut aneous every 7 days for 28 days 03/07/2025 Active Encounters Encounter Location Date Provider Diagnosis [facility] [address] [place] [address] 03/07/2025 CHARLINE ZUNIGA PLAN OF TREATMENT Medication Medication Name Sig Start Date Stop Date Notes Zepbound 2.5 MG/0.5ML as directed Subcut aneous every 7 days for 28 days 03/07/2025
--- OUTSIDE RECORDS SUMMARY | 2025-03-21 08:43 | XMS_ITS ---
Author Organization [facility] Address [address], [place] [id number] Care Team Providers Care Assistant Technician Name Role Phone CHARLINE ZUNIGA Primary Care Provider REASON FOR VISIT medicine for the flu Encounters Encounter Location Date Provider Diagnosis [facility] [address] [place] [id number] 03/21/2025 CHARLINE ZUNIGA PLAN OF TREATMENT No Information
--- OUTSIDE RECORDS SUMMARY | 2025-03-21 08:55 | XMS_ITS ---
Author Organization [facility] Address [address] [place], [place] [id number] Care Team Providers Care Auto Roller Name Role Phone NADIA CHARLINE Primary Care Provider REASON FOR VISIT (w) New Refill Request MEDICATIONS Medication SIG (Take, Route, Frequency, Duration) Notes Start Date End Date Status Metoprolol Succinate ER 200 MG 1 tablet Orally Once a day for 90 days Active Uduqehxyeu-YCWO-Uukbatbh 50-300-40 MG 1 capsule as needed Orally every 8 hrs prn for 30 day(s) 03/25/2025 Active Encounters Encounter Location Date Provider Diagnosis [facility] [address] [place] [address] 03/21/2025 CHARLINE NADIA Essential (primary) hypertension I10 ASSESSMENTS Encounter Date Diagnosis Assessment Notes Treatment Notes Treatment Clinical Notes Section Notes 03/21/2025 Essential (primary) hypertension (ICD-10 - I10) PLAN OF TREATMENT Medication Medication Name Sig Start Date Stop Date Notes Metoprolol Succinate ER 200 MG 1 tablet Orally Once a day for 90 days Bwyefheapk-GXWY-Vnsvyxir 50-300-40 MG 1 capsule as needed Orally every 8 hrs prn for 30 day(s) 03/25/2025
--- OUTSIDE RECORDS SUMMARY | 2025-03-21 09:31 | XMS_ITS ---
Author Organization [facility] Address [address] [place], [place] [id number] Care Team Providers Care Urban Sociologist Name Role Phone CHARLINE ZUNIGA Primary Care Provider [phone] REASON FOR VISIT call from Dr. Jacobs Encounter Location Date Provider Diagnosis [facility] [address] [place] [address] 03/21/2025 CHARLINE ZUNIGA PLAN OF TREATMENT No Information
--- OUTSIDE RECORDS SUMMARY | 2025-03-21 09:46 | XMS_ITS ---
Author Organization [facility] Address [address] [place], [place] [phone] Care Team Providers Care Header Boss Name Role Phone CHARLINE ZUNIGA Primary Care Provider REASON FOR VISIT RE:call from Dr. Jacobs Encounter Location Date Provider Diagnosis [facility] [address] [place] [address] 03/21/2025 CHARLINE ZUNIGA PLAN OF TREATMENT No Information
--- OUTSIDE RECORDS SUMMARY | 2025-03-21 11:00 | XMS_ITS ---
Author Organization [facility] Address [address] [place], [place] [phone] Care Team Providers Care Junior Java Developer Name Role Phone CHARLINE ZUNIGA Primary Care Provider [phone] ALLERGIES Allergen (clinical drug ingredient) Drug/Non Drug Allergy documented on EMR Reaction Allergy Type Onset Date Status metronidazole Flagyl nausea Drug Allergy Act eliezer REASON FOR VISIT 41/ telemed/doximity/[phone]/ cough, congestion, flu exposure MEDICATIONS Medication SIG (Take, Route, Frequency, Duration) Notes Start Date End Date Status Sberwixjpv-REDO-Pzhufuwt 50-300-40 MG 1 capsule as needed Orally every 8 hrs prn for 30 day(s) 07/18/2023 Active Gabapentin 100 MG 1 capsule Orally Once a day Active Zepbound 2.5 MG/0.5ML as directed Subcutaneous every 7 days for 28 days 03/07/2025 Not-Taking Tamiflu 75 MG 1 capsule Orally Twice a day for 5 day(s) 03/21/2025 Active Ibuprofen 800 MG 1 tablet with food or milk as needed Orally every 8 hrs Active Escitalopram Oxalate 20 MG 1 tablet Oral ly Once a day for 90 days Active Metoprolol Succinate ER 200 MG 1 tablet Orally Once a day Active Losartan Potassium 25 MG 1 tablet Orally Once a day for 90 day(s) 11/20/2024 Active Omeprazole 20 MG TAKE 1 CAPSULE BY MOUTH DAILY BEFORE MEALS for 90 Active hydroCHLOROthiazide 25 MG TAKE 1 TABLET BY MOUTH EVERY DAY for 90 Active Encounters Encounter Location Date Provider Diagnosis [facility] [address] [place] [address] 03/21/2025 CHARLINE ZUNIGA Influenza J11.1 ASSESSMENTS Encounter Date Diagnosis Assessment Notes Treatment Notes Treatment Clinical Notes Section Notes 03/21/2025 Influenza (ICD-10 - J11.1) 1. Influenza: Will treat with Tamiflu empirically. If family is able to picking crew supervisor a flu test she will let me know to confirm results and whether family members need prophylaxis. If not improving she will reach out to me again PLAN OF TREATMENT Medication Medication Name Sig Start Date Stop Date Notes Tamiflu 75 MG 1 capsule Orally Twice a day for 5 day(s) Progress Notes * Examination Category Sub-Category Detail Notes Category Not es General Examination Lungs: No visible shortness of breath General Appearance Ill-appearing Neuro alert and oriented x 3 Psych: affect normal History and Physical Notes * HPI (History of Present Illness) Category Sub-Category Detail Notes Category Not es General Patient requested this virtual visit. She was in her home and I was in the office for this visit which lasted 12 minutes. 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 She has been wearing a mask but last night awakened with sudden onset of fever and chills as well as cough. She feels fatigued and has bodyaches today. She has been unable to get out to get a flu test but is confident she has influenza. She is not have any wheezing or shortness of breath
--- OUTSIDE RECORDS SUMMARY | 2025-03-22 14:37 | XMS_ITS ---
Author Organization [facility] Address [address] [place], [place] [phone] Care Team Providers Care Check Embosser Name Role Phone CHARLINE ZUNIGA Primary Care Provider [phone] REASON FOR VISIT RE:New Refill Request Encounters Encounter Location Date Provider Diagnosis [facility] [address] [address] 03/22/2025 CHARLINE ZUNIGA PLAN OF TREATMENT No Information
--- OUTSIDE RECORDS SUMMARY | 2025-03-22 14:40 | XMS_ITS ---
Author Organization [facility] Address [address] [place], [place] [id number] Care Team Providers Care Train Attendant Name Role Phone CHARLINE ZUNIGA Primary Care Provider [phone] REASON FOR VISIT wt. Loss medication Encounters Encounter Location Date Provider Diagnosis [facility] [address] [place] [address] 03/22/2025 CHARLINE ZUNIGA PLAN OF TREATMENT No Information
--- NOTE | 2025-03-28 08:01 | MHC.OFFVIS ---
Intake Visit Reasons: Left knee pain Intake Note: Radha is a 55 year old female who presents with complaints of progressively worsening left knee pain. She describes her pain as sharp and severe in nature. Her pain has gotten worse over the last few years in spite of continued non operative treatments as well as left knee arthroscopic surgery which gave her only temporary relief. The patient has tried Tylenol, anti-inflammatory medicines and gabapentin which gave her minimal relief. The patient has difficulty walking even short distances because of her pain. At this point her left knee pain is interfering with her activities of daily living and her ability to sleep well through the night. She has had both viscosupplementation injections and cortisone injections. The most recent injections gave her no relief. Allergies metronidazole (From Cellectisyl) Allergy (Verified 03/28/25 08:01) Unknown Medication List - Last Reconciled 03/28/25 by Andres Culp MD fxtdbgftkx-sswfgkrhdkwfp-zfna 50-300-40 mg 1 cap PO DAILY cholecalciferol (vitamin D3) 50 mcg PO DAILY docusate sodium (Colace) 100 mg PO DAILY PRN escitalopram oxalate 20 mg PO DAILY gabapentin 100 mg PO Q8H hydrochlorothiazide 25 mg PO DAILY metoprolol succinate ER 200 mg PO DAILY omeprazole 20 mg PO DAILY polyethylene glycol 3350 (Miralax) 17 grams PO DAILY PRN PFSH Medical History IBS (irritable bowel syndrome) GERD (gastroesophageal reflux disease) Anxiety History of febrile seizure On beta jeremiah at home Cluster headaches Migraines HTN (hypertension) Surgical History Hx of dilation and curettage Hx of arthroscopy of right knee Hx of colonoscopy History of foot surgery History of tonsillectomy Family History Maternal Aunt Breast cancer Paternal Aunt Breast cancer Social History Are you a primary long term care social worker to a significant other at home: No Do you presently have visiting nurse or other home services: No Alcohol intake: current Alcohol intake frequency: holidays/special occasions only Comment: cramping Patient Tobacco Use Status: Never used Tobacco Current occupational status: employed 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 Gender identity: Female Physical Exam Const Other: Well-nourished well-developed very friendly female awake alert and oriented x3 in no acute distress Extrem Other: Left knee examination shows a minimal effusion, palpable crepitus with range of motion, pain with range of motion, range of motion from -3 degrees to 115 degrees, no instability Results Reviewed Results Reviewed: X-rays of the patient's left knee taken previously show end-stage degenerative joint disease with grade 4 ilki-ks-jyvb arthritis in the medial compartment, subchondral sclerosis, osteophyte formation, no acute bony abnormalities Assessment & Plan Assessment & Plan (1) Left knee pain: Code(s): M25.562 - Pain in left knee Category: Medical (2) Osteoarthritis of left knee: Code(s): M17.12 - Unilateral primary osteoarthritis, left knee Category: Medical Plan Ms. Jeff presents with progressively worsening left knee pain due to end-stage degenerative joint disease. I had a lengthy discussion with the patient regarding the treatment options. At this point she has failed continued non operative treatments as well as arthroscopic surgery. The risks and benefits of left total knee replacement surgery were discussed at length with the patient. The patient wishes to proceed with surgery. She will be scheduled for next available date. I will see her back prior to her surgery to answer any final questions that she might have. Feel free to call me at any time should questions regarding her orthopedic management arise. I spent 21 minutes in reviewing the patient's records and imaging studies, seeing the patient and documenting in the medical record. Coding Level of Care Code Est Pt Level 3 (23715) Complex EM visit Add On G2211 Diagnoses Left knee pain M25.562 Osteoarthritis of left knee M17.12
--- OUTSIDE RECORDS SUMMARY | 2025-03-28 08:14 | XMS_ITS | Patient Health Record ---
Author Organization [facility] Address [address] [place], [place] [id number] Care Team Providers Care Sports Psychologist Name Role Phone CHARLINE ZUNIGA Primary Care Provider ALLERGIES Allergen (clinical drug ingredient) Drug/Non Drug Allergy documented on EMR Reaction Allergy Type Onset Date Status metronidazole Flagyl nausea Drug Allergy Act eliezer REASON FOR REFERRAL Reason HOLD FOR LOCKED NOTE Appt New patient Diagnosis 1 Tremor (R25.1) Referral Organization [facility] Referring Provider First Name CHARLINE Referring Provider Last Name NADIA Referring Provider Speciality Internal M edicine Referred Provider RHONDA AVALOS Referred Provider Specialty Neurology General Notes HOLD FOR LOCKED NOTE NADIA JOHN D 11/20/2024 07:23:18 PM > locked Referral Priority Urgent MEDICATIONS Medication SIG (Take, Route, Frequency, Duration) Notes Start Date End Date Status Lbzlupdiqo-XNEQ-Tcsqtpxa 50-300-40 MG 1 capsule as needed Orally every 8 hrs prn for 30 day(s) 07/18/2023 Active Escitalopram Oxalate 20 MG 1 tablet [...] as needed Orally every 8 hrs Active Metoprolol Succinate ER 200 MG 1 tablet Orally Once a day Active Losartan Potassium 25 MG 1 tablet Orally Once a day for 90 day(s) 11/20/2024 Active Omeprazole 20 MG TAKE 1 CAPSULE BY MOUTH DAILY BEFORE MEALS for 90 Active hydroCHLOROthiazide 25 MG TAKE 1 TABLET BY MOUTH EVERY DAY for 90 Active IMMUNIZATIONS Vaccine Route Administration [...] Code Notes Problem Hypertriglyceridemia (E78.1) Active confirmed 472435524 Problem Other chronic pain (G89.29) Active confirmed 10393018 Problem Primary osteoarthrit is of both knees (M17.0) Active confirmed 226729772 Problem Chronic GERD (K21.9) Active confirmed 2 00244794 Problem Anxiety, generalized (F41.1) Active confirmed 77877911 Problem Obesity due to exces s calories with serious comorbidity, unspecified classification (E66.09) Active confirmed 817739840 Problem PSVT (paroxysmal supraventricular tachycardia) (I47.10) Active confirmed 13578592 Problem Essential (primary) hypertension (I10) 010 Active confirmed Essential hypertension (14449091) VITAL SIGNS Blood pressure diastolic 86 mm Hg 11/20/2024 Height 66.50 in 11/20/2024 Blood pressure systolic 118 mm Hg 11/20/2024 Weight 247.0 lbs 11/20/2024 BMI 39.27 kg/m2 11/20/2024 Encounters Encounter Location Date Provider Diagnosis [facility] [address] [place] [address] 06/08/2024 [facility] [address] [place] [address] 07/18/2024 [facility] [address] [place] [address] 07/18/2024 [facility] [address] [address] 07/19/2024 CHARLINE ZUNIGA Arthralgia of right temporomandibular joint M26.621 and Essential (primary) hypertension I10 [facility] [address] [place] [address] 07/19/2024 [facility] [address] [place] [address] 10/15/2024 [facility] [address] [place] [address] 10/15/[address] [address] 10/18/2024 [facility] [address] [place] [address] 10/30/[address] [address] 10/30/2024 [facility] Essential (primary) hypertension I10 ; Obesity due to excess calories with serious comorbidity, unspecified classification E66.09 and Encounter for general adult medical examination without abnormal findings Z00.[address] [address] 11/20/2024 [facility] Encounter for genera l adult medical examination with abnormal findings Z00.01 ; Essential (primary) hypertension I10 ; Obesity due to excess calories with serious comorbidity, unspecified classification E66.09 ; Primary osteoarthritis of both knees M17.0 ; Chronic GERD K21.9 ; PSVT (paroxysmal supraventricular tachycardia) I47.10 ; Headache, unspecified R51.9 ; Tremor R25.1 and Hypertriglyceridemia E78.1 [facility] [address] [place] [id number] 12/31/[address] [address] 12/31/[address] [address] 01/04/[address] [address] 02/14/[address] [address] 02/14/2025 [facility] Rib pain on left douglas e R07.[address] [address] 02/15/2025 [facility] [address] [facility] [place] [address] 02/15/2025 [facility] [address] [facility] [place] [address] 03/07/2025 [facility] [address] [facility] [place] [address] 03/21/2025 [facility] [address] [place] [address], [place] [address] 03/21/2025 [facility] Essential (primary) hypertension I10 [facility] [address] [place] [address], [place] [address] 03/21/2025 [facility] [address] [place] [address], [place] [address] 03/21/2025 [facility] [address] [place] [address], [place] [address] 03/21/2025 [facility] [place] Influenza J11.[address] [place] [address] 03/22/[address] [place] [address] 03/22/2025 [facility] [place] [facility] Encounter Date Diagnosis Assessment Notes Treatment [...] We will book a physical for the summer 11/20/2024 Encounter for genera l adult medical examination with abnormal findings (ICD-10 - Z00.01) 1. Routine healthcare maintenance: Colonoscopy was done in 2021 and is next due in 2031. Mammogram is due next month. She is up-to-date with [employer]. She is up-to-date with fasting blood work [...] on left douglas e (ICD-10 - R07.89) 03/21/2025 Essential (primary) hypertension (ICD-10 - I10) 03/21/2025 Influenza (ICD-10 - J11.1) 1. Influenza: Wi ll treat with Tamiflu empirically. If family is able to picker and packer a flu test she will let me know to confirm results and whether family members need prophylaxis. If not improving she will reach out to me again 11/20/2024 Essential (primary) hypertension (ICD-10 - I10) 1. Routine healthcare maintenance: Colonoscopy was done in 2021 and is next due in 2031. Mammogram is due next month. She is up-to-date with [employer]. She is up-to-date with fasting blood work [...] time of next visit 10/30/2024 Encounter for [facility] adult medical examination without abnormal findings (ICD-10 - Z00.00) 11/20/2024 Obesity due to exces s calories with serious comorbidity, unspecified classification (ICD-10 - E66.09) 1. Routine healthcare maintenance: Colonoscopy was done in 2021 and is next due in 2031. Mammogram is due next month. She is up-to-date with [employer]. She is up-to-date with fasting blood work [...] due next month. She is up-to-date with [employer]. She is up-to-date with fasting blood work [...] due next month. She is up-to-date with [employer]. She is up-to-date with fasting blood work [...] due next month. She is up-to-date with [employer]. She is up-to-date with fasting blood work [...] due next month. She is up-to-date with [employer]. She is up-to-date with fasting blood work [...] due next month. She is up-to-date with [employer]. She is up-to-date with fasting blood work [...] due next month. She is up-to-date with [employer]. She is up-to-date with fasting blood work [...] End Date [employer] [address] [address] [place] [address] [id number] MAULIK JEFF Self - patient is the [...] D and C Hospitalization History Reason Date(Month/Year) [facility]- Left knee injury at work 11/2024
--- OUTSIDE RECORDS SUMMARY | 2025-03-28 08:14 | XMS_ITS | Clinical Summary ---
Author Organization [facility] Address [address] [id number] Care Team Providers Care Workforce Management Analyst Name Role Phone Israel Neal MD Primary [...] age to complete this topic Care Teams Workforce Management Analyst Relationship Specialty Start Date End Date Israel Neal MD PCP - General Internal Medicine 09/06/18
--- OUTSIDE RECORDS SUMMARY | 2025-03-28 08:15 | XMS_ITS | Patient Health Record ---
[facility] Address [address] [place] [address] Care Team Providers Care Clock And Watch Hands Mounter Name Role Phone Israel Neal MD Primary Care Provider UnavailFifi Marquis Unavailable [phone] Allergies Allergen (clinical drug ingredient) Drug/Non Drug [...] Contracture of joint of left foot (disorder) (880282465481029) Contracture , left foot (M24.575) Active confirmed Problem Acquired hallux valgus (23673782) Hallux valgus (acquired), left foot (M20.12) Active confirmed Problem Acquired hammer toe of left foot (1059828192237277 ) Hammer toe of left foot (M20.42) [...] X ray : Foot, right 3V 02/06/2013 08303, E4681-SNDIF/INJECT, JOINT/BURSA 1 06/18/2012 53593, I1009-QMKEL/INJECT, JOINT/BURSA 0 10/25/2013 25635, X1589-GCYLS/INJECT, JOINT/BURSA 1 06/30/2014 86236, L5786-VUYJP/INJECT, JOINT/BURSA 0 05/16/2015 82550, M8016-ALWWM/INJECT, JOINT/BURSA 1 29410, J0702- Neuroma/Injection 02/27/20 14 Insurance Providers Payer Name Payer Address Payer Phone Subscriber Number Group Number Insured Name Patient Relationship to Insured Coverage Start Date Coverage End Date [employer] [address] [address] [place] [address] [id number] Radha Jeff Self - patient is the insured Medical (General) History Medical History History ICD Code anxiety high blood pressure chicken pox Headaches/Migraines Joint implants/screws Surgical History Surgery Date(Month/Year) bunionectomy, left foot 02/1988 torn miniskus 04/2014 bunionectomy, right foot 2017 tonsillectomy 1975 Meniscus repair, right knee 2016 Fernando Man 2nd, Tenotomy/Capsulot isabel Left 07/22/2022 Hospitalization History Reason Date(Month/Year) [facility] for a 3 day stay, f or chest pain 04/2013
--- OUTSIDE RECORDS SUMMARY | 2025-03-28 08:16 | XMS_ITS | Patient Health Record ---
Author Organization [facility] Address [address] [place] [address] Care Team Providers Care Well Logging Captain Name Role Phone Israel Neal MD Primary Care Provider Unavailab Rolando Peguero Jr Unavailable Reason For Referral No Information Medications Medication SIG (Take, Route, Frequency, Duration) Notes Start Date End Date Status Vitamin D 50 MCG (1999) Capsule 1 tablet Orally Once a day Active Citalopram Hydrobromide 20 M G Tablet 1 tablet Orally Once a day Active hydroCHLOROthiazide 25 MG Tablet 1 tablet in the morning Orally Once a day Active Omeprazole 20 MG Capsule Delayed Release Orally Once a day Active MiraLax (colon [...] stop date) Never Smoker NA - NA Social History Drugs/Alcohol: Social Info Question Answer Notes Alcohol Screen Did you have a drink containing alcohol in the past year? Yes How often did you have a drink containing alcohol in the past year? Monthly or less (1 point) How many drinks did you have on a typical day when you were drinking in the past year? 1 or 2 drinks (0 point) How often did you have 6 or more drinks on one occasion in the past year? Never (0 point) Points 1 Interpretation Negative Tobacco Use: Social Info Question Answer Notes Tobacco Use/Smoking Patient is a nonsmoker Additional Details Category Social Info Options Details Miscellaneous: Marital status: Occupation: works full-time - [employer] employee ([employer]) Problems Problem Type SNOMED Code ICD Code Onset Dates Problem Status W/U Status Risk Notes Problem Colon cancer screening (271450224) Colon cancer screening (Z12.11) Active confirmed Problem Pre-procedure evaluation check (803879374) Encounter for other preprocedural examination (Z01.818) Active confirmed Problem Gastroesophageal reflux disease without esophagitis (013474899) Gastroesophageal reflux disease without esophagitis (K21.9) Active confirmed Plan Of Treatment Future Test Test Name Order Date COLONOSCOPY 01/02/2020 Insurance Providers Payer Name Payer Address Payer Phone Subscriber Number Group Number Insured Name Patient Relationship to Insured Coverage Start Date Coverage End Date [employer] [place] [address] [address] [place] [address] [id number] MAULIK YEPEZ Self - patient is the insured Medical (General) History Medical History History ICD Code hypertension headaches (migraines) PSVT gastroesophageal reflux disease anxiety Surgical History Surgery Date(Month/Year) bunions removed on each foot 2016 tonsillectomy and adenoidectomy
== END 2025-03-28 08:18 | disposition home or self-care (01) ==
LOC: HO.HOS 07:58
PROVIDERS: PCP Internal Medicine; Visit Provider Orthopaedic Surgery
DX: M25.562 Pain in left knee (principal); M17.12 Unilateral primary osteoarthritis, left knee
CPT/HCPCS: 99214